=== PATIENT | female | born 1950 | race Caucasian/White ===

== ENCOUNTER 2021-10-24 12:58 | Inpatient (IN) ==
[2021-10-24] MEDS ORDERED: dexAMETHasone**PF** 10 MG/ML VIAL IV ONE (13:25)
--- NOTE | 2021-10-24 13:36 | Emergency Department Note ---
Impression & Plan 2019 novel coronavirus-infected pneumonia (NCIP), Hypoxia, Acute respiratory distress, Respiratory failure, Hyperglycemia ED Provider Note NAME: NERISSA WATKINS AGE: 71 SEX: F : 1950 ARRIVES VIA: Walk-In INFORMANT: Patient, ED PROVIDER(S): Jorge Luis Fuentes DO CHIEF COMPLAINT: Shortness of breath HPI: The patient is a 71-year-old female who presented to the emergency department for an evaluation of shortness of breath. The patient started having symptoms approximately 2 weeks ago. She is not currently vaccinated against COVID-19. The patient states that she has had difficulty breathing and cough. She states her symptoms started to improve but then over the last 4 days became very severe. She notices severe shortness of breath with any exertion. She denies having any specific orthopnea. She had a cough. She denies have any lower extremity swelling or fever. The patient is not seen her doctor for the symptoms. She presented to the emergency department with a friend after they noticed her breathing was very labored. The patient was taken directly back to room B1. The patient does have a history of asthma. She states she is been compliant with her usual medications otherwise. ROS: See above HPI for pertinent positives & negatives. A total of 10 systems re viewed and were otherwise negative. PAST MEDICAL HISTORY: See Below PAST SURGICAL HISTORY: See Below FAMILY HISTORY: See Below SOCIAL HISTORY: See Below HOME MEDICATIONS: See Below ALLERGIES: See Below VITALS: See Below PHYSICAL EXAMINATION: GENERAL: The patient is awake and alert. The patient is very anxious appearing and appears to be having distress with breathing. EYES: The conjunctivae are clear. The pupils are round and reactive. EARS, NOSE, MOUTH AND THROAT: The nose is without any evidence of any deformity. NECK: The neck is nontender and supple. RESPIRATORY: Diminished breath sounds are noted throughout. There is some rales noted in the right lung field. There was significant conversational dyspnea. CARDIOVASCULAR: Regular rate and rhythm noted there no murmurs rubs or gallops normal S1 normal S2. GASTROINTESTINAL: The abdomen is soft. Abdomen is nontender. MUSCULOSKELETAL/EXTREMITIES: There is no evidence of gross deformity full range of motion is noted in the hips and shoulders. SKIN: There is no obvious evidence of any rash. Trace pedal edema was noted bilaterally. There was no specific calf tenderness. NEUROLOGIC: Patient is awake alert and oriented x 3. MEDICAL DECISION MAKING: The patient is a 71-year-old female who presented to emergency department for an evaluation of difficulty breathing. The patient was unable to get the Covid vaccine. She started having symptoms several days ago but then started becoming much worse over the weekend. The patient presented to the emergency department with unstable vital signs. She was hypoxic. Lung sounds were severely diminished. She also has a history of asthma so she was treated with bronchodilator therapy in the emergency department. She was also placed on high flow oxygen. I discussed the patient's laboratory and radiographic studies with her. Because of the degree of hypoxia she also had a CT of the chest to ensure there is no signs of pulmonary embolism. This was negative. [facility] have agreed to evaluate the patient in the emergency department for further management and disposition. She was treated with Decadron. Symptoms significantly improved on reevaluation. Triage Nursing notes reviewed. Prior medical records reviewed Vital Signs: reviewed and remarkable for hypoxia, tachycardia, hypertension. Differential diagnosis: Reactive airway disease, pneumonia, pneumothorax, COPD, CHF, infections, cardiac ischemia, pulmonary embolism, musculoskeletal, gastrointestinal, as well as other pathologies. ER treatment provided: See below Diagnostics interpreted by me: ECG: EKG was obtained in the emergency department. My interpretation is sinus tachycardia 105 bpm. PVCs were noted. Right bundle branch block pattern was also appreciated. This was compared to a tracing from May 042019. The right bundle branch block is new compared to the earlier tracing. Cardiac Monitoring: An order was placed for continuous cardiac monitoring. The monitor shows a rate of 99 bpm with sinus rhythm. Laboratory studies: As stated above and show below. Imaging studies: See below Consultation(s): I discussed this case with Angela [facility] ED COURSE: Procedures: none PDMP:reviewed and no issues Critical Care: I have personally spent greater than 55 minutes of critical care time in the direct management of this patient. This includes bedside care, interpretation of diagnostic studies, and testing, discussion with consultants, patient, and family members, and other required patient management activities. This 55 minutes is in excess of all separately billable procedures. Past Med/Surg History Medical History Cellulitis Thrombocytopenia Surgical History History of incision and drainage History of laparoscopic cholecystectomy S/P tonsillectomy S/P total abdominal hysterectomy and bilateral salpingo-oophorectomy Family History Father No problems noted. Mother No problems noted. Social History Smoking Status: Never smoker Hx Alcohol Use: No Hx Substance Use: No Preferred Language: Citizen Of [place] Communication Ability: Effective Beliefs That Will Affect Care: None Current Living Situation: Alone Feels Safe at Home: Yes Seatbelt Use: always Assistive Devices: None Allergies Allergies Allergy/AdvReac Type Severity Reaction Status Date / Time erythromycin base Allergy Severe ANAPHYLAXIS Verified 08/16/21 08:53 metformin Allergy Severe GENERALIZED Verified 08/16/21 08:53 RASH AND ITCHING Penicillins Allergy Severe ANAPHYLAXIS, Verified 08/16/21 08:53 RASH cefaclor Allergy Intermediate RASH Verified 08/16/21 08:53 Quinolones Allergy Mild RASH Verified 08/16/21 08:53 clindamycin Allergy Unknown Verified 08/16/21 08:53 Influenza Virus Vaccines Allergy Unknown ` Verified 08/16/21 08:53 Sulfa (Sulfonamide Allergy Unknown ` Verified 08/16/21 08:53 Antibiotics) tetracycline Allergy Unknown Verified 08/16/21 08:53 Tetracyclines Allergy Unknown MINOCYCLINE Verified 08/16/21 08:53 /DOXY prednisone AdvReac Intermediate PSYCHOSIS Verified 08/16/21 08:53 vancomycin AdvReac Intermediate RED MAN Verified 08/16/21 08:53 SYNDROME - RASH, WBC DECREASED SULFA Allergy Severe SOB, Uncoded 08/16/21 08:53 DYSPNEA,THROAT SWELLING TETANUS Allergy Severe REDNESS, Uncoded 08/16/21 08:53 SWELLING AT INSERTION SITE Home Meds Home Medications Medication Instructions Recorded Confirmed loratadine 10 mg capsule 10 mg PO DAILY cap 06/12/19 08/16/21 multivitamin (Daily Multi-Vitamin) 1 tab PO DAILY 09/13/20 08/16/21 acetaminophen 500 mg tablet 500 mg PO Q6H PRN 12/27/20 08/16/21 (Tylenol Extra Strength) Previous Rx's Medication Instructions Recorded hydrochlorothiazide 25 mg tablet 25 mg PO DAILY #90 tab 01/10/21 losartan 100 mg tablet 100 mg PO DAILY #90 tab 01/10/21 spironolactone 25 mg tablet 25 mg PO DAILY #90 tab 01/10/21 Results & Data (ED) Vital Signs Vital Signs - 24 hr 10/24/21 13:17 10/24/21 13:23 10/24/21 13:30 Temperature 36.4 C L Temperature Source Oral Pulse Rate 113 H 101 H 107 H Pulse Rate [Right Finger] Pulse Rate from SpO2 Sensor 107 H Pulse Rhythm Regular Respiratory Rate 32 H 24 37 H Respiratory Effort / Characteristics Spontaneous Blood Pressure 112/52 L 169/86 H Blood Pressure Mean 72 113 Pulse Oximetry 61 L 86 L 92 Oxygen Delivery Method Room Air High Flow Nasal Cannula Oxygen Flow Rate 35 Fraction of Inspired Oxygen 55 Sepsis Recent Fever Within 48 Hours No Sepsis New/Unexplained Change in Mental Status No Sepsis Action Taken by Nursing Physician Notified 10/24/21 13:37 10/24/21 13:50 10/24/21 13:53 Temperature Temperature Source Pulse Rate Pulse Rate [Right Finger] 104 H Pulse Rate from SpO2 Sensor Pulse Rhythm Respiratory Rate 24 28 H Respiratory Effort / Characteristics Spontaneous Labored Blood Pressure Blood Pressure Mean Pulse Oximetry 93 93 89 L Oxygen Delivery Method High Flow Nasal Cannula High Flow Nasal Cannula High Flow Nasal Cannula Oxygen Flow Rate 35 35 35 Fraction of Inspired Oxygen 55 55 55 Sepsis Recent Fever Within 48 Hours Sepsis New/Unexplained Change in Mental Status Sepsis Action Taken by Nursing 10/24/21 14:00 10/24/21 14:05 10/24/21 14:15 Temperature Temperature Source Pulse Rate 99 H 98 H Pulse Rate [Right Finger] 101 H Pulse Rate from SpO2 Sensor 95 H Pulse Rhythm Respiratory Rate 26 H 22 26 H Respiratory Effort / Characteristics Spontaneous Labored Blood Pressure 145/83 H 171/100 H Blood Pressure Mean 103 123 Pulse Oximetry 89 L 94 96 Oxygen Delivery Method High Flow Nasal Cannula High Flow Nasal Cannula High Flow Nasal Cannula Oxygen Flow Rate 35 40 40 Fraction of Inspired Oxygen 55 65 65 Sepsis Recent Fever Within 48 Hours Sepsis New/Unexplained Change in Mental Status Sepsis Action Taken by Nursing 10/24/21 14:19 10/24/21 14:23 10/24/21 14:30 Temperature Temperature Source Pulse Rate 98 H 99 H Pulse Rate [Right Finger] Pulse Rate from SpO2 Sensor 99 H Pulse Rhythm Respiratory Rate 19 26 H 39 H Respiratory Effort / Characteristics Spontaneous Labored Blood Pressure 171/100 H 166/100 H Blood Pressure Mean 123 122 Pulse Oximetry 94 95 Oxygen Delivery Method High Flow Nasal Cannula High Flow Nasal Cannula Oxygen Flow Rate 40 40 Fraction of Inspired Oxygen 65 65 Sepsis Recent Fever Within 48 Hours Sepsis New/Unexplained Change in Mental Status Sepsis Action Taken by Nursing 10/24/21 14:45 10/24/21 15:00 10/24/21 15:15 Temperature Temperature Source Pulse Rate 95 H 99 H 99 H Pulse Rate [Right Finger] Pulse Rate from SpO2 Sensor 95 H 99 H 99 H Pulse Rhythm Respiratory Rate 20 28 H 28 H Respiratory Effort / Characteristics Blood Pressure 162/85 H 163/94 H 174/95 H Blood Pressure Mean 110 117 121 Pulse Oximetry 93 91 90 Oxygen Delivery Method High Flow Nasal Cannula High Flow Nasal Cannula Oxygen Flow Rate 40 40 Fraction of Inspired Oxygen Sepsis Recent Fever Within 48 Hours Sepsis New/Unexplained Change in Mental Status Sepsis Action Taken by Nursing 10/24/21 15:30 10/24/21 15:45 10/24/21 16:00 Temperature Temperature Source Pulse Rate 103 H 101 H Pulse Rate [Right Finger] Pulse Rate from SpO2 Sensor 104 H 101 H Pulse Rhythm Respiratory Rate 43 H 26 H Respiratory Effort / Characteristics Blood Pressure 190/86 H 187/92 H Blood Pressure Mean 120 123 Pulse Oximetry 90 Oxygen Delivery Method High Flow Nasal Cannula High Flow Nasal Cannula High Flow Nasal Cannula Oxygen Flow Rate 40 40 40 Fraction of Inspired Oxygen Sepsis Recent Fever Within 48 Hours Sepsis New/Unexplained Change in Mental Status Sepsis Action Taken by Nursing 10/24/21 16:01 10/24/21 16:15 10/24/21 16:30 Temperature Temperature Source Pulse Rate 99 H 99 H Pulse Rate [Right Finger] Pulse Rate from SpO2 Sensor 103 H 99 H 99 H Pulse Rhythm Respiratory Rate 34 H 25 H 23 Respiratory Effort / Characteristics Blood Pressure 174/91 H 179/91 H Blood Pressure Mean 118 120 Pulse Oximetry 92 96 Oxygen Delivery Method High Flow Nasal Cannula High Flow Nasal Cannula High Flow Nasal Cannula Oxygen Flow Rate 40 40 40 Fraction of Inspired Oxygen Sepsis Recent Fever Within 48 Hours Sepsis New/Unexplained Change in Mental Status Sepsis Action Taken by [facility] Medications Current Medication List: was personally reviewed by me Laboratory Data Attestation: I reviewed the patient's lab results. Result diagrams: 10/24/21 13:30 01/24/22 13:30 Lab Results 10/24/21 10/24/21 10/24/21 Range/Units 13:30 13:30 13:30 WBC 14.27 H (4.8-10.8) K/uL RBC 4.28 (4.2-5.4) M/uL Hgb 13.2 (12.0-16.0) g/dL Hct 40.3 (37-47) % MCV 94.2 (80-100) fL MCH 30.8 (25-34) pg MCHC 32.8 (32-36) g/dL RDW Std Deviation 47.5 H (36.4-46.3) fL RDW Coeff of Jessica 13.7 (11.5-14.5) % Plt Count 391 (130-400) K/uL MPV 9.2 (7.4-10.4) fL Immature Gran % (Auto) 0.6 % Neut % (Auto) 79.5 % Lymph % (Auto) 10.0 % [place] % (Auto) 8.9 % Eos % (Auto) 0.6 % Baso % (Auto) 0.4 % Neut # (Auto) 11.35 H (1.4-6.5) K/uL Lymph # (Auto) 1.42 (1.2-3.4) K/uL [place] # (Auto) 1.27 H (0.11-0.59) K/uL Eos # (Auto) 0.09 (0-0.5) K/uL Baso # (Auto) 0.06 (0-0.2) K/uL Immature Gran # (Auto) 0.08 H (0.00-0.02) K/uL ESR 69 H (0-30) mm/hr PT 10.2 (9.0-12.0) Seconds INR 1.0 (0.9-1.1) APTT 24.3 (21.0-31.0) Seconds PTT Ratio 0.9 Fibrinogen (184-400) mg/dl D-Dimer 1540 H* (0-500) ug/L FEU ABG pH (7.35-7.45) ABG pCO2 (35-46) mmHg ABG pO2 (80-95) mmHg ABG HCO3 (19-24) mmol/L ABG O2 Saturation (90-95) % ABG Base Excess (-9-1.8) mEq/L Herson Test (Pos) VBG pH (7.36-7.41) VBG pCO2 (38-50) mmHg VBG pO2 mmHg VBG HCO3 mmol/L VBG O2 Saturation % VBG Base Excess mEq/L Barometric Pressure mm/Hg Oxygen Given Sodium (136-145) mmol/L Potassium (3.5-5.1) mmol/L Chloride (98-107) mmol/L Carbon Dioxide (21-32) mmol/L Anion Gap (3-11) BUN (6-23) mg/dl Creatinine (0.6-1.2) mg/dl Est Cr Clr Drug Dosing ml/min Est GFR ( Amer) ml/min Est GFR (Non-Af Amer) ml/min BUN/Creatinine Ratio (10-20) Glucose (70-99(Fasting)) mg/dl Lactate (0.4-2.0) mmol/L Calcium (8.5-10.1) mg/dl Magnesium (1.7-2.4) mg/dl Total Bilirubin (0.2-1.0) mg/dl AST (13-39) U/L ALT (7-52) U/L Alkaline Phosphatase (34-104) U/L Troponin I (0-0.04) ng/ml C-Reactive Protein (0-0.5) mg/dl B-Natriuretic Peptide (0-100) pg/ml Total Protein (6.0-8.3) gm/dl Albumin (3.4-5.0) gm/dl Globulin (2.5-4.0) gm/dl Albumin/Globulin Ratio (0.9-2) Procalcitonin (0-0.5) ng/ml Adenovirus (PCR) (NotDetected) B. pertussis DNA (PCR) (NotDetected) B.parapertussis DNA PCR (NotDetected) C. pneumoniae DNA (PCR) (NotDetected) Coronavirus OC43 (PCR) (NotDetected) Coronavirus HKU1 (PCR) (NotDetected) Coronavirus 229E (PCR) (NotDetected) SARS-CoV-2 (PCR) (NotDetected) Coronavirus NL63 (PCR) (NotDetected) Human Metapneumovir PCR (NotDetected) Influenza Type A (PCR) (NotDetected) Influenza Type B (PCR) (NotDetected) M. pneumoniae (PCR) (NotDetected) Parainfluenza 1 (PCR) (NotDetected) Parainfluenza 2 (PCR) (NotDetected) Parainfluenza 3 (PCR) (NotDetected) Parainfluenza 4 (PCR) (NotDetected) RSV (PCR) (NotDetected) Entero/Rhino (PCR) (NotDetected) 10/24/21 10/24/21 10/24/21 Range/Units 13:30 13:30 13:45 WBC (4.8-10.8) K/uL RBC (4.2-5.4) M/uL Hgb (12.0-16.0) g/dL Hct (37-47) % MCV (80-100) fL MCH (25-34) pg MCHC (32-36) g/dL RDW Std Deviation (36.4-46.3) fL RDW Coeff of Jessica (11.5-14.5) % Plt Count (130-400) K/uL MPV (7.4-10.4) fL Immature Gran % (Auto) % Neut % (Auto) % Lymph % (Auto) % [place] % (Auto) % Eos % (Auto) % Baso % (Auto) % Neut # (Auto) (1.4-6.5) K/uL Lymph # (Auto) (1.2-3.4) K/uL [place] # (Auto) (0.11-0.59) K/uL Eos # (Auto) (0-0.5) K/uL Baso # (Auto) (0-0.2) K/uL Immature Gran # (Auto) (0.00-0.02) K/uL ESR (0-30) mm/hr PT (9.0-12.0) Seconds INR (0.9-1.1) APTT (21.0-31.0) Seconds PTT Ratio Fibrinogen (184-400) mg/dl D-Dimer (0-500) ug/L FEU ABG pH (7.35-7.45) ABG pCO2 (35-46) mmHg ABG pO2 (80-95) mmHg ABG HCO3 (19-24) mmol/L ABG O2 Saturation (90-95) % ABG Base Excess (-9-1.8) mEq/L Herson Test (Pos) VBG pH (7.36-7.41) VBG pCO2 (38-50) mmHg VBG pO2 mmHg VBG HCO3 mmol/L VBG O2 Saturation % VBG Base Excess mEq/L Barometric Pressure mm/Hg Oxygen Given Sodium 134 L (136-145) mmol/L Potassium 3.6 (3.5-5.1) mmol/L Chloride 94 L (98-107) mmol/L Carbon Dioxide 25 (21-32) mmol/L Anion Gap 15 H (3-11) BUN 26 H (6-23) mg/dl Creatinine 1.25 H (0.6-1.2) mg/dl Est Cr Clr Drug Dosing 48.2 ml/min Est GFR ( Amer) 49.4 ml/min Est GFR (Non-Af Amer) 42.6 ml/min BUN/Creatinine Ratio 20.8 H (10-20) Glucose 373 H* (70-99(Fasting)) mg/dl Lactate 2.9 H* (0.4-2.0) mmol/L Calcium 8.9 (8.5-10.1) mg/dl Magnesium 2.0 (1.7-2.4) mg/dl Total Bilirubin 0.7 (0.2-1.0) mg/dl AST 15 (13-39) U/L ALT 11 (7-52) U/L Alkaline Phosphatase 61 (34-104) U/L Troponin I 0.03 (0-0.04) ng/ml C-Reactive Protein 18.40 H (0-0.5) mg/dl B-Natriuretic Peptide (0-100) pg/ml Total Protein 7.5 (6.0-8.3) gm/dl Albumin 3.4 (3.4-5.0) gm/dl Globulin 4.1 H (2.5-4.0) gm/dl Albumin/Globulin Ratio 0.8 L (0.9-2) Procalcitonin 0.16 (0-0.5) ng/ml Adenovirus (PCR) (NotDetected) B. pertussis DNA (PCR) (NotDetected) B.parapertussis DNA PCR (NotDetected) C. pneumoniae DNA (PCR) (NotDetected) Coronavirus OC43 (PCR) (NotDetected) Coronavirus HKU1 (PCR) (NotDetected) Coronavirus 229E (PCR) (NotDetected) SARS-CoV-2 (PCR) (NotDetected) Coronavirus NL63 (PCR) (NotDetected) Human Metapneumovir PCR (NotDetected) Influenza Type A (PCR) (NotDetected) Influenza Type B (PCR) (NotDetected) M. pneumoniae (PCR) (NotDetected) Parainfluenza 1 (PCR) (NotDetected) Parainfluenza 2 (PCR) (NotDetected) Parainfluenza 3 (PCR) (NotDetected) Parainfluenza 4 (PCR) (NotDetected) RSV (PCR) (NotDetected) Entero/Rhino (PCR) (NotDetected) 10/24/21 10/24/21 10/24/21 Range/Units 13:46 14:02 14:02 WBC (4.8-10.8) K/uL RBC (4.2-5.4) M/uL Hgb (12.0-16.0) g/dL Hct (37-47) % MCV (80-100) fL MCH (25-34) pg MCHC (32-36) g/dL RDW Std Deviation (36.4-46.3) fL RDW Coeff of Jessica (11.5-14.5) % Plt Count (130-400) K/uL MPV (7.4-10.4) fL Immature Gran % (Auto) % Neut % (Auto) % Lymph % (Auto) % [place] % (Auto) % Eos % (Auto) % Baso % (Auto) % Neut # (Auto) (1.4-6.5) K/uL Lymph # (Auto) (1.2-3.4) K/uL [place] # (Auto) (0.11-0.59) K/uL Eos # (Auto) (0-0.5) K/uL Baso # (Auto) (0-0.2) K/uL Immature Gran # (Auto) (0.00-0.02) K/uL ESR (0-30) mm/hr PT (9.0-12.0) Seconds INR (0.9-1.1) APTT (21.0-31.0) Seconds PTT Ratio Fibrinogen (184-400) mg/dl D-Dimer (0-500) ug/L FEU ABG pH (7.35-7.45) ABG pCO2 (35-46) mmHg ABG pO2 (80-95) mmHg ABG HCO3 (19-24) mmol/L ABG O2 Saturation (90-95) % ABG Base Excess (-9-1.8) mEq/L Herson Test (Pos) VBG pH 7.41 (7.36-7.41) VBG pCO2 41 (38-50) mmHg VBG pO2 22 mmHg VBG HCO3 26 mmol/L VBG O2 Saturation < 60.0 % VBG Base Excess 1.0 mEq/L Barometric Pressure 725.8 mm/Hg Oxygen Given Sodium (136-145) mmol/L Potassium (3.5-5.1) mmol/L Chloride (98-107) mmol/L Carbon Dioxide (21-32) mmol/L Anion Gap (3-11) BUN (6-23) mg/dl Creatinine (0.6-1.2) mg/dl Est Cr Clr Drug Dosing ml/min Est GFR ( Amer) ml/min Est GFR (Non-Af Amer) ml/min BUN/Creatinine Ratio (10-20) Glucose (70-99(Fasting)) mg/dl Lactate (0.4-2.0) mmol/L Calcium (8.5-10.1) mg/dl Magnesium (1.7-2.4) mg/dl Total Bilirubin (0.2-1.0) mg/dl AST (13-39) U/L ALT (7-52) U/L Alkaline Phosphatase (34-104) U/L Troponin I (0-0.04) ng/ml C-Reactive Protein (0-0.5) mg/dl B-Natriuretic Peptide 84 (0-100) pg/ml Total Protein (6.0-8.3) gm/dl Albumin (3.4-5.0) gm/dl Globulin (2.5-4.0) gm/dl Albumin/Globulin Ratio (0.9-2) Procalcitonin (0-0.5) ng/ml Adenovirus (PCR) Not Detected (NotDetected) B. pertussis DNA (PCR) Not Detected (NotDetected) B.parapertussis DNA PCR Not Detected (NotDetected) C. pneumoniae DNA (PCR) Not Detected (NotDetected) Coronavirus OC43 (PCR) Not Detected (NotDetected) Coronavirus HKU1 (PCR) Not Detected (NotDetected) Coronavirus 229E (PCR) Not Detected (NotDetected) SARS-CoV-2 (PCR) DETECTED A* (NotDetected) Coronavirus NL63 (PCR) Not Detected (NotDetected) Human Metapneumovir PCR Not Detected (NotDetected) Influenza Type A (PCR) Not Detected (NotDetected) Influenza Type B (PCR) Not Detected (NotDetected) M. pneumoniae (PCR) Not Detected (NotDetected) Parainfluenza 1 (PCR) Not Detected (NotDetected) Parainfluenza 2 (PCR) Not Detected (NotDetected) Parainfluenza 3 (PCR) Not Detected (NotDetected) Parainfluenza 4 (PCR) Not Detected (NotDetected) RSV (PCR) Not Detected (NotDetected) Entero/Rhino (PCR) Not Detected (NotDetected) 10/24/21 10/24/21 10/24/21 Range/Units 15:31 15:31 15:34 WBC (4.8-10.8) K/uL RBC (4.2-5.4) M/uL Hgb (12.0-16.0) g/dL Hct (37-47) % MCV (80-100) fL MCH (25-34) pg MCHC (32-36) g/dL RDW Std Deviation (36.4-46.3) fL RDW Coeff of Jessica (11.5-14.5) % Plt Count (130-400) K/uL MPV (7.4-10.4) fL Immature Gran % (Auto) % Neut % (Auto) % Lymph % (Auto) % [place] % (Auto) % Eos % (Auto) % Baso % (Auto) % Neut # (Auto) (1.4-6.5) K/uL Lymph # (Auto) (1.2-3.4) K/uL [place] # (Auto) (0.11-0.59) K/uL Eos # (Auto) (0-0.5) K/uL Baso # (Auto) (0-0.2) K/uL Immature Gran # (Auto) (0.00-0.02) K/uL ESR (0-30) mm/hr PT (9.0-12.0) Seconds INR (0.9-1.1) APTT (21.0-31.0) Seconds PTT Ratio Fibrinogen 635 H (184-400) mg/dl D-Dimer (0-500) ug/L FEU ABG pH 7.47 H (7.35-7.45) ABG pCO2 38 (35-46) mmHg ABG pO2 56 L (80-95) mmHg ABG HCO3 27 H (19-24) mmol/L ABG O2 Saturation 90.9 (90-95) % ABG Base Excess 3.0 H (-9-1.8) mEq/L Herson Test POS (Pos) VBG pH (7.36-7.41) VBG pCO2 (38-50) mmHg VBG pO2 mmHg VBG HCO3 mmol/L VBG O2 Saturation % VBG Base Excess mEq/L Barometric Pressure 725.2 mm/Hg Oxygen Given 40% FiO2 Sodium (136-145) mmol/L Potassium (3.5-5.1) mmol/L Chloride (98-107) mmol/L Carbon Dioxide (21-32) mmol/L Anion Gap (3-11) BUN (6-23) mg/dl Creatinine (0.6-1.2) mg/dl Est Cr Clr Drug Dosing ml/min Est GFR ( Amer) ml/min Est GFR (Non-Af Amer) ml/min BUN/Creatinine Ratio (10-20) Glucose (70-99(Fasting)) mg/dl Lactate 0.8 (0.4-2.0) mmol/L Calcium (8.5-10.1) mg/dl Magnesium (1.7-2.4) mg/dl Total Bilirubin (0.2-1.0) mg/dl AST (13-39) U/L ALT (7-52) U/L Alkaline Phosphatase (34-104) U/L Troponin I (0-0.04) ng/ml C-Reactive Protein (0-0.5) mg/dl B-Natriuretic Peptide (0-100) pg/ml Total Protein (6.0-8.3) gm/dl Albumin (3.4-5.0) gm/dl Globulin (2.5-4.0) gm/dl Albumin/Globulin Ratio (0.9-2) Procalcitonin (0-0.5) ng/ml Adenovirus (PCR) (NotDetected) B. pertussis DNA (PCR) (NotDetected) B.parapertussis DNA PCR (NotDetected) C. pneumoniae DNA (PCR) (NotDetected) Coronavirus OC43 (PCR) (NotDetected) Coronavirus HKU1 (PCR) (NotDetected) Coronavirus 229E (PCR) (NotDetected) SARS-CoV-2 (PCR) (NotDetected) Coronavirus NL63 (PCR) (NotDetected) Human Metapneumovir PCR (NotDetected) Influenza Type A (PCR) (NotDetected) Influenza Type B (PCR) (NotDetected) M. pneumoniae (PCR) (NotDetected) Parainfluenza 1 (PCR) (NotDetected) Parainfluenza 2 (PCR) (NotDetected) Parainfluenza 3 (PCR) (NotDetected) Parainfluenza 4 (PCR) (NotDetected) RSV (PCR) (NotDetected) Entero/Rhino (PCR) (NotDetected) Administered Medications Discontinued Medications Albuterol (Albut/Ipratrop 3mg/0.5mg Neb 3 Ml Vial) 12 ml NEB ONE ONE; Protocol Stop: 10/24/21 13:49 Last Admin: 10/24/21 14:04 Dose: 12 ml Documented by: [id number] Dexamethasone Sodium Phosphate (DexamethasonePf 10 Mg/Ml Vial) 10 mg IV NOW ONE Stop: 10/24/21 13:26 Last Admin: 10/24/21 13:40 Dose: 10 mg Documented by: [id number] Ioversol (Optiray 320 125ml) 120 ml IV ONCE ONE Stop: 10/24/21 15:54 Last Admin: 10/24/21 15:54 Dose: 120 ml Documented by: [id number] Imaging Data Radiologist's Impression: Chest CTA 10/24/21 14:23 CT angio chest PE protocol CLINICAL HISTORY: PE TECHNIQUE: Multidetector row helical CT of the chest was performed. Coronal and sagittal reformations were obtained. Coronal and sagittal MIPS were obtained from the axial data set and were submitted for review. Automated dose lowering techniques and/or adjustment according to patient size were utilized for this exam. Comparison: Comparison is made to CT chest 03/22/2016 FINDINGS: Lungs and pleura: Extensive consolidative and reticular opacities are seen compatible with history of Covid pneumonia. Heart and pericardium: There is cardiomegaly without evidence of pericardial effusion. Vessels: No evidence of pulmonary embolism. The pulmonary trunk measures 33 mm. Mediastinum and enrique: Subcentimeter lymph nodes are seen. Chest wall and lower neck: A large lobulated lesion is again seen in the upper midline back with low-attenuation some calcifications. This could represent a sebaceous cyst, and is almost certainly benign due to lack of growth. Abdomen: Patient is status post cholecystectomy. Bones: Degenerative changes in the thoracic spine. IMPRESSION: 1. No evidence of pulmonary embolism. 2. Extensive consolidative and reticular opacities compatible with Covid pneumonia. 3. Pulmonary hypertension. 4. Benign lesion in the soft tissues of the back may represent a sebaceous cyst. ACT 112: Negative or not required by law. Electronically signed by: Cristi Mcdonald M.D. 10/24/2021 4:18 PM Discharge Plan Visit Data Chief Complaint: Shortness of Breath/Dyspnea Stated Complaint: SOB ED Provider: Jorge Luis Fuentes Discharge Problem: 2019 novel coronavirus-infected pneumonia (NCIP), Hypoxia, Acute respiratory distress, Respiratory failure, Hyperglycemia Patient Disposition: Being Evaluated by Hospitalist Forms Stand Alone Forms: My [facility] Behalf Prescriptions Prescriptions: No Action loratadine 10 mg capsule 10 mg PO DAILY RF: 0 hydrochlorothiazide 25 mg tablet 25 mg PO DAILY Qty: 90 RF: 3 losartan 100 mg tablet 100 mg PO DAILY Qty: 90 RF: 3 spironolactone 25 mg tablet 25 mg PO DAILY Qty: 90 RF: 3 acetaminophen [Tylenol Extra Strength] 500 mg tablet 500 mg PO Q6H PRNRF: 0 multivitamin [Daily Multi-Vitamin] Tablet 1 tab PO DAILY RF: 0 Referrals Referrals: Raciel Garsia MD [Primary Care Provider] -
[2021-10-24 13:41] LABS: Hematocrit (blood only) 40.3 % (37-47); Hemoglobin 13.2 g/dL (12.0-16.0); Mean Corpuscular Hemoglobin 30.8 pg (25-34); Mean Corpuscular Hgb Conc 32.8 g/dL (32-36); Mean Corpuscular Volume 94.2 fL (80-100); Mean Platelet Volume 9.2 fL (7.4-10.4); Platelet Count 391 K/uL (130-400); RDW Coefficient of Variation 13.7 % (11.5-14.5); RDW Standard Deviation 47.5 fL (36.4-46.3); Red Blood Count 4.28 M/uL (4.2-5.4); White Blood Count 14.27 K/uL (4.8-10.8)
[2021-10-24] MEDS ORDERED: ALBUT/IPRATROP 3MG/0.5MG NEB 3 ML VIAL NEB ONE (13:48)
[2021-10-24 13:53] LABS: Partial Thromboplastin Ratio 0.9; Partial Thromboplastin Time 24.3 Seconds (21.0-31.0); Prothrombin Time 10.2 Seconds (9.0-12.0)
[2021-10-24 13:58] LABS: D Dimer 1540 ug/L FEU (0-500)
[2021-10-24 14:15] LABS: HCO3 VBG 26 mmol/L; PCO2 VBG 41 mmHg (38-50); PO2 VBG 22 mmHg; pH VBG 7.41 (7.36-7.41)
[2021-10-24 14:16] LABS: Troponin I 0.03 ng/ml (0-0.04)
[2021-10-24 14:20] LABS: Oxygen Saturation VBG < 60.0 %
[2021-10-24 14:33] LABS: Basophils # (auto) 0.06 K/uL (0-0.2); Basophils % (auto) 0.4 %; Eosinophils # (auto) 0.09 K/uL (0-0.5); Eosinophils % (auto) 0.6 %; Immature Granulocytes # (auto) 0.08 K/uL (0.00-0.02); Immature Granulocytes % (auto) 0.6 %; Lymphocytes # (auto) 1.42 K/uL (1.2-3.4); Monocytes # (auto) 1.27 K/uL (0.11-0.59); Monocytes % (auto) 8.9 %; Neutrophils # (auto) 11.35 K/uL (1.4-6.5); Neutrophils % (auto) 79.5 %
[2021-10-24 14:44] LABS: Albumin Globulin Ratio 0.8 (0.9-2); Albumin Level 3.4 gm/dl (3.4-5.0); BUN Creatinine Ratio 20.8 (10-20); Bilirubin,Total 0.7 mg/dl (0.2-1.0); C Reactive Protein 18.4 mg/dl (0-0.5); Calcium 8.9 mg/dl (8.5-10.1); Creatinine Clr Calc Pharmacy 48.2 ml/min; Est GFR (African American) 49.4 ml/min; Est GFR (Non-African American) 42.6 ml/min; Globulin 4.1 gm/dl (2.5-4.0); Potassium 3.6 mmol/L (3.5-5.1); Total Protein 7.5 gm/dl (6.0-8.3)
[2021-10-24 14:46] LABS: Adenovirus PCR Not Detected (NotDetected); Bordetella parapertussis PCR Not Detected (NotDetected); Bordetella pertussis PCR Not Detected (NotDetected); Chlamydia pneumoniae PCR Not Detected (NotDetected); Coronavirus 229E PCR Not Detected (NotDetected); Coronavirus HKU1 PCR Not Detected (NotDetected); Coronavirus NL63 PCR Not Detected (NotDetected); Coronavirus OC43PCR Not Detected (NotDetected); Human Metapneumovirus PCR Not Detected (NotDetected); Influenza A PCR Not Detected (NotDetected); Influenza B PCR Not Detected (NotDetected); Mycoplasma pneumoniae PCR Not Detected (NotDetected); Parainfluenza Virus 1 PCR Not Detected (NotDetected); Parainfluenza Virus 2 PCR Not Detected (NotDetected); Parainfluenza Virus 3 PCR Not Detected (NotDetected); Parainfluenza Virus 4 PCR Not Detected (NotDetected); Respiratory Syncytial VirusPCR Not Detected (NotDetected); Rhinovirus/Enterovirus PCR Not Detected (NotDetected)
[2021-10-24 14:49] LABS: Coronavirus CoV-2 (COVID19)PCR DETECTED (NotDetected)
--- NOTE | 2021-10-24 15:45 | History & Physical Report ---
Date of Service October 24, 2021 Assessment & Plan (1) COVID-19: Plan: -Day #10 of illness, not vaccinated as she was reportedly advised not to be due to developing meningitis several years ago following influenza vaccine. -ESR 69, CRP 18.4, WBC 14.2, BUN 26, Cr 1.25, fibrinogen 635 -Received Decadron 10mg IV in ED, will continue this dose during hospitalization beginning tomorrow -Albuterol inhaler Q6 with flutter valve ordered. -Baricitinib ordered. -Sputum culture pending. -Empiric coverage with cefepime. Patient has several antibiotic allergies. After discussion with pharmacy, a decision was made to trial patient on cefepime and monitor her clinical response, with the ability to escalate or de-escalate abx coverage depending on her response and tolerance. -BMP and CBC in AM. (2) Hypoxia: Plan: -D-dimer elevated at 1540 however chest CTA was negative for pulmonary embolism. -Likely 2/2 COVID-19 pneumonia with possible bacterial pneumonia. -Patient is on 40 L/min hi-flow at 65% FiO2 -Plan as above. (3) KEESHA (acute kidney injury): Plan: -BUN 26, Cr 1.25. -Likely the result of poor po intake due to recent illness in combination with HCTZ and losartan. -Hold BP meds for today. -LR at 80cc/hr for 1L started. -BMP in AM. (4) Hyperglycemia: Plan: -BBS is 373 in ED today. Patient denies a formal DM diagnosis however sugars appear to be chronically elevated in 200s on previous labs. No A1c for reference. -Received 5 units of Novolin in the ED. -Sliding scale insulin ordered with BGM checks ACHS. -Glycemic management consult to pharmacy placed. -HbA1c ordered with AM labs tomorrow. (5) Paroxysmal supraventricular tachycardia: Plan: -h/o Wide Complex Tachycardia (only 1 brief and asymptomatic episode on 05/24/2019 and lasted 5 seconds at a rate of 180 bpm) -Patient has a loop recorder implanted. (6) HTN (hypertension): Plan: -Hold HCTZ and Losartan today due to KEESHA. (7) DVT prophylaxis: Plan: -SCDs ordered. -Lovenox 40 mg SQ Q12. History of Present Illness Chief Complaint: shortness of breath Primary Care Provider: Raciel Garsia MD Patient is a 69 y/o female with a PMH of HTN and SVT who presents today with increasing SOB. Pt began experiencing nasal congestion, productive cough, rhinorrhea, low grade fever, and fatigue about 10 days ago. She called her PCP who advised her to isolate and use OTC medications to manage her symptoms at the time. Patient improved over the next several days with Tylenol, however began to decline again over the past 4 days with the above symptoms as well as increasing SOB and fatigue. 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 She denies sick contacts. She had not been tested for COVID-19, but test in ED today is positive. Patient came into the ED with initial SaO2 at 61% on RA but improved to mid 90s on 65% FIO2. She received 10 gm IV Decadron as well as DuoNeb treatment, as well as 5 units of Novolin as her sugar was 373. Hospitalist team was consulted for admission. Allergies Allergy/AdvReac Type Severity Reaction Status Date / Time erythromycin base Allergy Severe ANAPHYLAXIS Verified 10/24/21 17:56 metformin Allergy Severe GENERALIZED Verified 10/24/21 17:56 RASH AND ITCHING Penicillins Allergy Severe ANAPHYLAXIS, Verified 10/24/21 17:56 RASH cefaclor Allergy Intermediate RASH Verified 10/24/21 17:56 Quinolones Allergy Mild RASH Verified 10/24/21 17:56 clindamycin Allergy Unknown Verified 10/24/21 17:56 Influenza Virus Vaccines Allergy Unknown ` Verified 10/24/21 17:56 Sulfa (Sulfonamide Allergy Unknown ` Verified 10/24/21 17:56 Antibiotics) tetracycline Allergy Unknown Verified 10/24/21 17:56 Tetracyclines Allergy Unknown MINOCYCLINE Verified 10/24/21 17:56 /DOXY prednisone AdvReac Intermediate PSYCHOSIS Verified 10/24/21 17:56 vancomycin AdvReac Intermediate RED MAN Verified 10/24/21 17:56 SYNDROME - RASH, WBC DECREASED SULFA Allergy Severe SOB, Uncoded 10/24/21 17:56 DYSPNEA,THROAT SWELLING TETANUS Allergy Severe REDNESS, Uncoded 10/24/21 17:56 SWELLING AT INSERTION SITE Home Medications Medication Instructions Recorded Confirmed Type loratadine 10 mg capsule 10 mg PO DAILY cap 06/12/19 10/24/21 History multivitamin (Daily Multi-Vitamin) 1 tab PO DAILY 09/13/20 10/24/21 History acetaminophen 500 mg tablet 500 mg PO Q6H PRN 12/27/20 10/24/21 History (Tylenol Extra Strength) hydrochlorothiazide 25 mg tablet 25 mg PO DAILY #90 tab 01/10/21 10/24/21 Rx losartan 100 mg tablet 100 mg PO DAILY #90 tab 01/10/21 10/24/21 Rx spironolactone 25 mg tablet 25 mg PO DAILY #90 tab 01/10/21 10/24/21 Rx Past Med/Surg History Medical History Cellulitis Thrombocytopenia Surgical History History of incision and drainage History of laparoscopic cholecystectomy S/P tonsillectomy S/P total abdominal hysterectomy and bilateral salpingo-oophorectomy Family History Father No problems noted. Mother No problems noted. Social History Smoking Status: Never smoker Hx Alcohol Use: No Hx Substance Use: No Preferred Language: Brazilian Communication Ability: Effective Beliefs That Will Affect Care: None Current Living Situation: Alone Feels Safe at Home: Yes Seatbelt Use: always Assistive Devices: None Review of Systems Review of Systems: Review of systems: Constitutional: Reports fever/chills and fatigue; denies night sweats Eyes: No diplopia, no worsening or blurred vision ENT: normal hearing, no trouble swallowing Respiratory: Reports cough productive for yellow sputum and SOB at rest and exertion Cardiovascular: No chest pain, tightness or palpitations Abdomen: No pain, nausea, vomiting, diarrhea or constipation Musculoskeletal: No joint pain, calf pain, swelling Genitourinary: No dysuria, urgency, hematuria, flank pain Neurologic: No weakness, numbness/tingling, or balance problems Psychiatric: No anxiety or depression Skin: No rash or itch Physical Exam Physical Exam: General: Pt is A+O x4, in no acute distress, conversation with 40L FiO2 in place Head: Normocephalic, atraumatic ENT: PERRL, EOMI, no pharyngeal exudate, mucous membranes moist Chest: b/l crackles heard throughout anterior lung govea Cardiac: Tachycardic, regular rhythm no murmur, no JVD, normal peripheral pulses, good capillary refill Abdominal: NABS x 4 quadrants, soft, nontender to palpation, no rebound, guarding or tenderness Extremities: Normal inspection, no peripheral edema or erythema, calfs nontender to palpation Psych: Normal mood and affect Neuro: AAO x 3, strength intact bilaterally and rated 5/5, no motor deficits, speech is clear, no peripheral sensory deficits Skin: no rash or erythema Results & Data Results & Data ([facility]) Vital Signs (Past 12 Hours) Vital Signs Temp Pulse Pulse Resp BP Pulse Ox 10/24/21 14:45 95 H 20 162/85 H 93 10/24/21 14:30 99 H 39 H 166/100 H 95 10/24/21 14:23 26 H 94 10/24/21 14:19 98 H 19 171/100 H 10/24/21 14:15 98 H 26 H 171/100 H 96 10/24/21 14:05 101 H 22 94 10/24/21 14:00 99 H 26 H 145/83 H 89 L 10/24/21 13:53 28 H 89 L 10/24/21 13:50 93 10/24/21 13:37 104 H 24 93 10/24/21 13:30 107 H 37 H 169/86 H 92 10/24/21 13:23 101 H 24 86 L 10/24/21 13:17 36.4 C L 113 H 32 H 112/52 L 61 L Laboratory Results Abnormal lab results 10/24/21 10/24/21 10/24/21 Range/Units 13:30 13:30 13:30 WBC 14.27 H (4.8-10.8) K/uL RDW Std Deviation 47.5 H (36.4-46.3) fL Neut # (Auto) 11.35 H (1.4-6.5) K/uL Robeson # (Auto) 1.27 H (0.11-0.59) K/uL Immature Gran # (Auto) 0.08 H (0.00-0.02) K/uL ESR 69 H (0-30) mm/hr Fibrinogen (184-400) mg/dl D-Dimer 1540 H* (0-500) ug/L FEU ABG pH (7.35-7.45) ABG pO2 (80-95) mmHg ABG HCO3 (19-24) mmol/L ABG Base Excess (-9-1.8) mEq/L Sodium (136-145) mmol/L Chloride (98-107) mmol/L Anion Gap (3-11) BUN (6-23) mg/dl Creatinine (0.6-1.2) mg/dl BUN/Creatinine Ratio (10-20) Glucose (70-99(Fasting)) mg/dl Lactate (0.4-2.0) mmol/L C-Reactive Protein (0-0.5) mg/dl Globulin (2.5-4.0) gm/dl Albumin/Globulin Ratio (0.9-2) SARS-CoV-2 (PCR) (NotDetected) 10/24/21 10/24/21 10/24/21 Range/Units 13:30 13:45 13:46 WBC (4.8-10.8) K/uL RDW Std Deviation (36.4-46.3) fL Neut # (Auto) (1.4-6.5) K/uL Robeson # (Auto) (0.11-0.59) K/uL Immature Gran # (Auto) (0.00-0.02) K/uL ESR (0-30) mm/hr Fibrinogen (184-400) mg/dl D-Dimer (0-500) ug/L FEU ABG pH (7.35-7.45) ABG pO2 (80-95) mmHg ABG HCO3 (19-24) mmol/L ABG Base Excess (-9-1.8) mEq/L Sodium 134 L (136-145) mmol/L Chloride 94 L (98-107) mmol/L Anion Gap 15 H (3-11) BUN 26 H (6-23) mg/dl Creatinine 1.25 H (0.6-1.2) mg/dl BUN/Creatinine Ratio 20.8 H (10-20) Glucose 373 H* (70-99(Fasting)) mg/dl Lactate 2.9 H* (0.4-2.0) mmol/L C-Reactive Protein 18.40 H (0-0.5) mg/dl Globulin 4.1 H (2.5-4.0) gm/dl Albumin/Globulin Ratio 0.8 L (0.9-2) SARS-CoV-2 (PCR) DETECTED A* (NotDetected) 10/24/21 10/24/21 Range/Units 15:31 15:31 WBC (4.8-10.8) K/uL RDW Std Deviation (36.4-46.3) fL Neut # (Auto) (1.4-6.5) K/uL Robeson # (Auto) (0.11-0.59) K/uL Immature Gran # (Auto) (0.00-0.02) K/uL ESR (0-30) mm/hr Fibrinogen 635 H (184-400) mg/dl D-Dimer (0-500) ug/L FEU ABG pH 7.47 H (7.35-7.45) ABG pO2 56 L (80-95) mmHg ABG HCO3 27 H (19-24) mmol/L ABG Base Excess 3.0 H (-9-1.8) mEq/L Sodium (136-145) mmol/L Chloride (98-107) mmol/L Anion Gap (3-11) BUN (6-23) mg/dl Creatinine (0.6-1.2) mg/dl BUN/Creatinine Ratio (10-20) Glucose (70-99(Fasting)) mg/dl Lactate (0.4-2.0) mmol/L C-Reactive Protein (0-0.5) mg/dl Globulin (2.5-4.0) gm/dl Albumin/Globulin Ratio (0.9-2) SARS-CoV-2 (PCR) (NotDetected) Diagnostic Findings Chest CTA 10/24/21 14:23 CT angio chest PE protocol CLINICAL HISTORY: PE TECHNIQUE: Multidetector row helical CT of the chest was performed. Coronal and sagittal reformations were obtained. Coronal and sagittal MIPS were obtained from the axial data set and were submitted for review. Automated dose lowering techniques and/or adjustment according to patient size were utilized for this exam. Comparison: Comparison is made to CT chest 03/22/2016 FINDINGS: Lungs and pleura: Extensive consolidative and reticular opacities are seen compatible with history of Covid pneumonia. Heart and pericardium: There is cardiomegaly without evidence of pericardial effusion. Vessels: No evidence of pulmonary embolism. The pulmonary trunk measures 33 mm. Mediastinum and enrique: Subcentimeter lymph nodes are seen. Chest wall and lower neck: A large lobulated lesion is again seen in the upper midline back with low-attenuation some calcifications. This could represent a sebaceous cyst, and is almost certainly benign due to lack of growth. Abdomen: Patient is status post cholecystectomy. Bones: Degenerative changes in the thoracic spine. IMPRESSION: 1. No evidence of pulmonary embolism. 2. Extensive consolidative and reticular opacities compatible with Covid pneumonia. 3. Pulmonary hypertension. 4. Benign lesion in the soft tissues of the back may represent a sebaceous cyst. ACT 112: Negative or not required by law. Electronically signed by: Cristi Mcdonald M.D. 10/24/2021 4:18 PM Supervising Physician Co-Signing Physician Notes I supervised Angela Lowe PA-C on the care of this patient. I interviewed and examined the patient independently of her. The plan is as written in her note except for any following changes/exceptions: None 71yo F w/ hx of HTN who presents with Covid-19 pneumonia. Patient sick for approx. 10 days with acute worsening in the last 3-4. SpO2 reported as low as 60% range on arrival and now requiring high-flow NC. Per PA note, start dexamethasone, baricitinib. Close monitor. She has an extremely high risk of decompensation and need for intubation given her arrival condition. Will treat for superimposed CAP. Unable to treat for atypicals given her allergy to azithro mycin, FLQs, and doxycycline. I did go over all these abx with her, and she reported significant reactions to all. Will trend WBC and procalcitonin. PG Care Time/CCT Total # of Minutes Spent Total Time Spent with Patient: Total time spent is greater than 50% in coordination of care (as documented) at patient's floor/unit and/or counseling patient: Coding Level of Care Code 34349 Initial Inpt Care Lvl 3 Diagnoses HTN (hypertension) I10 Hypertension type: essential hypertension Paroxysmal supraventricular tachycardia I47.1 Hyperglycemia R73.9 COVID-19 U07.1 Hypoxia R09.02 KEESHA (acute kidney injury) N17.9 DVT prophylaxis Z29.9 (1) HTN (hypertension) Hypertension type: essential hypertension Qualified Code(s): I10 - Essential (primary) hypertension
[2021-10-24 15:48] LABS: Allen Test POS (Pos); HCO3 ABG 27 mmol/L (19-24); Oxygen Saturation ABG 90.9 % (90-95); PCO2 ABG 38 mmHg (35-46); PO2 ABG 56 mmHg (80-95); pH ABG 7.47 (7.35-7.45)
[2021-10-24] MEDS ORDERED: OPTIRAY 320 125ml IV ONE (15:53)
[2021-10-24 15:54] LABS: Fibrinogen 635 mg/dl (184-400)
--- NOTE | 2021-10-24 16:06 | Electrocardiogram Report ---
Test Reason : Blood Pressure : / mmHG Vent. Rate : 105 BPM Atrial Rate : 105 BPM P-R Int : 146 ms QRS Dur : 152 ms QT Int : 386 ms P-R-T Axes : 025 -22 -01 degrees QTc Int : 510 ms Poor data quality, interpretation may be adversely affected Sinus tachycardia with Premature ventricular complexes Right bundle branch block Abnormal ECG When compared with ECG of 04-MAY-2020 16:31, PVCs are now present Right bundle branch block is now Present Confirmed by Raciel Jordan ([id number]) on 10/24/2021 4:06:14 PM Referred By: REFERRED SELF Confirmed By:Sergio Jordan
--- NOTE | 2021-10-24 16:19 | CT Scan Report ---
CT angio chest PE protocol CLINICAL HISTORY: PE TECHNIQUE: Multidetector row helical CT of the chest was performed. Coronal and sagittal reformations were obtained. Coronal and sagittal MIPS were obtained from the axial data set and were submitted fo r review. Automated dose lowering techniques and/or adjustment according to patient size were utiliz ed for this exam. Comparison: Comparison is made to CT chest 03/22/2016 FINDINGS: Lungs and pleura: Extensive consolidative and reticular opacities are seen compatible with history of Covid pneumonia. Heart and pericardium: There is cardiomegaly without evidence of pericardial effusion. Vessels: No evidence of pulmonary embolism. The pulmonary trunk measures 33 mm. Mediastinum and enrique: Subcentimeter lymph nodes are seen. Chest wall and lower neck: A large lobulated lesion is again seen in the upper midline back with low- attenuation some calcifications. This could represent a sebaceous cyst, and is almost certainly benig n due to lack of growth. Abdomen: Patient is status post cholecystectomy. Bones: Degenerative changes in the thoracic spine. IMPRESSION: 1. No evidence of pulmonary embolism. 2. Extensive consolidative and reticular opacities compatible with Covid pneumonia. 3. Pulmonary hypertension. 4. Benign lesion in the soft tissues of the back may represent a sebaceous cyst. ACT 112: Negative or not required by law. Electronically signed by: Cristi Mcdonald M.D. 10/24/2021 4:18 PM
[2021-10-24] MEDS ORDERED: LACTATED RINGER'S 1,000 ML IV ONE (16:48)
[2021-10-24] MEDS ORDERED: ALBUTEROL 0.083% NEBU SOLN 3 ML VIAL NEB PRN (16:54)
[2021-10-24] MEDS ORDERED: SODIUM CHLORIDE 0.9% 1000ML 500 ML IV ONE (16:55)
[2021-10-24] MEDS ORDERED: NovoLIN-R INSULIN PER UNIT CHARGE IV STA (16:55)
[2021-10-24] MEDS ORDERED: BARICITINIB COMMUNICATION ONE (17:15)
[2021-10-24] MEDS ORDERED: GLUCAGON FOR INJ 1 MG VIAL SQ PRN (19:35)
[2021-10-24] MEDS ORDERED: CARBOHYDRATES FOR HYPOGLYCEMIA PO PRN (19:35)
[2021-10-24] MEDS ORDERED: DEXTROSE 50% 50 ML SYRINGE IV PRN (19:35)
[2021-10-24] MEDS ORDERED: GLUCOSE 10 TABS/TUBE PO PRN (19:35)
[2021-10-24] MEDS ORDERED: GLUCOSE 40% GEL 15 GM TUBE PO PRN (19:35)
[2021-10-24] MEDS ORDERED: POLYETHYLENE (MIRALAX) 17 GM PACK PO PRN (19:35)
[2021-10-24] MEDS ORDERED: ONDANSETRON INJ 2 MG/ML 2 ML VIAL IV PRN (19:35)
[2021-10-24] MEDS ORDERED: PHARMACY GLYCEMIC MGMT CONSULT PRN (19:35)
[2021-10-24] MEDS ORDERED: BARICITINIB 2 MG TAB PO SCH (21:00)
[2021-10-24] MEDS ORDERED: INSULIN GLARGINE SOLOSTAR 100 UNITS/ML 3 ML PEN SC ONE (21:15)
[2021-10-24] MEDS: INSULIN ASPART PER UNIT SC SCH (21:52)
[2021-10-24] MEDS: ENOXAPARIN INJ 40 MG/0.4 ML SYR SQ SCH (22:22)
[2021-10-24] MEDS: CEFEPIME 2,000 MG in SYRINGE 0 ML IV SCH (23:43)
[2021-10-25] MEDS: INSULIN ASPART PER UNIT SC SCH ×6 (00:10→21:30)
[2021-10-25 07:08] LABS: Basophils # (auto) 0.02 K/uL (0-0.2); Basophils % (auto) 0.3 %; Hematocrit (blood only) 34.8 % (37-47); Hemoglobin 11.4 g/dL (12.0-16.0); Immature Granulocytes # (auto) 0.04 K/uL (0.00-0.02); Immature Granulocytes % (auto) 0.5 %; Lymphocytes # (auto) 1.25 K/uL (1.2-3.4); Lymphocytes % (auto) 16.3 %; Mean Corpuscular Hemoglobin 30.7 pg (25-34); Mean Corpuscular Hgb Conc 32.8 g/dL (32-36); Mean Corpuscular Volume 93.8 fL (80-100); Monocytes # (auto) 1.07 K/uL (0.11-0.59); Monocytes % (auto) 13.9 %; Platelet Count 353 K/uL (130-400); RDW Coefficient of Variation 13.5 % (11.5-14.5); RDW Standard Deviation 46.6 fL (36.4-46.3); Red Blood Count 3.71 M/uL (4.2-5.4); White Blood Count 7.68 K/uL (4.8-10.8)
[2021-10-25 07:51] LABS: BUN Creatinine Ratio 29.2 (10-20); Calcium 8.6 mg/dl (8.5-10.1); Creatinine Clr Calc Pharmacy 67.7 ml/min; Est GFR (African American) 74.5 ml/min; Est GFR (Non-African American) 64.3 ml/min; Potassium 4.1 mmol/L (3.5-5.1)
[2021-10-25 08:16] LABS: Estimated Average Glucose 272 mg/dl; Hemoglobin A1C 11.1 % (4.5-5.6)
[2021-10-25] MEDS: dexAMETHasone 6 MG in SYRINGE 0 ML IV SCH (08:56)
[2021-10-25] MEDS: CEFEPIME 2,000 MG in SYRINGE 0 ML IV SCH ×2 (08:56→18:07)
[2021-10-25] MEDS: ENOXAPARIN INJ 40 MG/0.4 ML SYR SQ SCH ×2 (08:57→20:48)
[2021-10-25] MEDS ORDERED: dexAMETHasone 10 MG in SYRINGE 0 ML IV SCH (09:00)
[2021-10-25] MEDS ORDERED: INSULIN HUMAN NPH SC ONE (10:00)
[2021-10-25] MEDS: LOSARTAN POTASSIUM 50 MG TAB PO SCH (13:04)
[2021-10-25] MEDS: SPIRONOLACTONE 25 MG TAB PO SCH (13:04)
[2021-10-25] MEDS: LORATADINE 10 MG TAB PO SCH (13:04)
[2021-10-25] MEDS: hydroCHLOROthiazide 25 MG TAB PO SCH (13:04)
--- NOTE | 2021-10-25 14:29 | Pharmacy Report ---
Pharmacy Glycemic Short Note 2 - Date of Service October 25, 2021 - Glycemic Short BSG Results (Last 24 hours): 10/24/21 10/24/21 10/24/21 13:30 20:40 20:42 Glucose 373 H* POC Glucose 322 H* 327 H* 10/24/21 10/24/21 10/25/21 23:45 23:46 04:26 Glucose POC Glucose 320 H* 326 H* 112 H 10/25/21 10/25/21 10/25/21 06:45 07:56 11:54 Glucose 103 H POC Glucose 113 H 161 H OUTPATIENT ANTIDIABETIC REGIMEN: * A1c = 11.1% ASSESSMENT: * Kamila is a 71 yo who presented to the ED with shortness of breath secondary to COVID-19 pneumonia and hyperglycemia * A1c of 11.1%. Patient does not appear to be on anti-diabetic medications as an outpatient. * She was given a regular insulin IV bolus + Lantus 25 units SQ last evening. * Significant improvement today. Will order a one time dose of weight based NPH to combat steroid induced hyperglycemia. * Continue Lantus but change to dose per BSG scale until needs are better known. * Continue novolog based on weight/stress of 3. PLAN FOR INPATIENT GLYCEMIC CONTROL: * Hold outpatient oral diabetes medications * Basal insulin * Lantus 0-20 units SQ HS (0 units BSG < 120, 10 units 120-180, 20 units for BSG > 180) * NPH 30 units SQ x 1 - reassess further dosing on 10/26 * Bolus insulin * NovoLog per scale ACHS or Q6hrs while NPO * Goal Range: Low 110 mg/dL - High 140 mg/dL * Correction Factor: 15 mg/dL/unit * Nutritional / Prandial insulin per carb ratio of 1 unit per 5 grams CHO consumed PLAN FOR DISCHARGE: * tbd
--- NOTE | 2021-10-25 14:34 | Hospitalist Progress Note ---
Date of Service October 25, 2021 Assessment & Plan (1) COVID-19: Plan: - unvaccinated female who presents to the hospital today on account of worsening shortness of breath. Tested positive for COVID-19. Chest x-ray showed evidence of bilateral infiltrates consistent with COVID-19 pneumonia. Symptoms started about 10 days prior to presentation. Currently on baricitinib, IV dexamethasone Monitor inflammatory markers Continue empiric IV antibiotics for suspected superimposed bacterial infection Check procalcitonin (2) Acute respiratory failure with hypoxia: Plan: Secondary to COVID-19 pneumonia Currently on 40 L high flow oxygen Wean as tolerated (3) Hypoxia: (4) Type 2 diabetes mellitus: Plan: Poorly controlled type 2 diabetes. Hemoglobin A1c 11 On insulin and insulin sliding scale (5) KEESHA (acute kidney injury): Plan: Most likely prerenal due to dehydration Recheck BMP (6) Hyperglycemia: (7) Paroxysmal supraventricular tachycardia: Plan: -h/o Wide Complex Tachycardia (only 1 brief and asymptomatic episode on 05/24/2019 and lasted 5 seconds at a rate of 180 bpm) -Patient has a loop recorder implanted. (8) HTN (hypertension): Plan: Blood pressure 158/77 Continue home medications (9) DVT prophylaxis: Plan: -SCDs ordered. -Lovenox 40 mg SQ Q12. (10) Morbid obesity: Plan: Patient was advised on diet and exercise Admission and Anticipated Discharge Date Admission Date: October 24, 2021 Subjective Patient seen and examined today, states that shortness of breath is much improved compared to yesterday Review of Systems Review of Systems: All systems reviewed are negative, apart from the ones contained in the history. Physical Exam Physical Exam: The patient is awake, alert and oriented 3, well developed and well nourished, normocephalic and atraumatic, lying in bed and in no acute distress. HEENT--PERRL, EOMI, mucous membranes and oropharynx mildly dry Neck--supple. No JVD. No bruits. Thyroid normal, trachea midline, no adenopathy. Heart--normal S1 and S2. No murmurs, rubs or gallops. Lungs--reduced and on auscultation. Abdomen--normal bowel sounds and soft. Mild epigastric and left sided abdominal pain Extremities--no cyanosis or clubbing. No edema. Dermatologic--normal skin turgor, normal color, no abnormal lymph nodes, no rash. Neurologic--cranial nerves II through XII grossly intact. Rheumatologic--normal range of motion. Psychiatric--normal affect. Results & Data Results & Data ([facility]) Vital Signs (Past 12 Hours) Vital Signs Temp Pulse Resp BP Pulse Ox 10/25/21 11:29 97.9 F 90 18 158/77 H 93 10/25/21 11:10 74 20 98 10/25/21 08:30 65 20 93 10/25/21 07:26 98.2 F 88 18 149/80 H 93 10/25/21 04:45 88 22 93 10/25/21 04:27 98.2 F 90 18 154/80 H 92 Laboratory Results Laboratory Results - last 24 hr 10/24/21 10/24/21 10/24/21 13:30 13:30 13:45 WBC RBC Hgb Hct MCV MCH MCHC RDW Std Deviation RDW Coeff of Jessica Plt Count MPV Immature Gran % (Auto) 0.6 Neut % (Auto) 79.5 Lymph % (Auto) 10.0 Darke % (Auto) 8.9 Eos % (Auto) 0.6 Baso % (Auto) 0.4 Neut # (Auto) 11.35 H Lymph # (Auto) 1.42 Darke # (Auto) 1.27 H Eos # (Auto) 0.09 Baso # (Auto) 0.06 Immature Gran # (Auto) 0.08 H Fibrinogen ABG pH ABG pCO2 ABG pO2 ABG HCO3 ABG O2 Saturation ABG Base Excess Herson Test Barometric Pressure Oxygen Given Sodium 134 L Potassium 3.6 Chloride 94 L Carbon Dioxide 25 Anion Gap 15 H BUN 26 H Creatinine 1.25 H Est Cr Clr Drug Dosing 48.2 Est GFR ( Amer) 49.4 Est GFR (Non-Af Amer) 42.6 BUN/Creatinine Ratio 20.8 H Glucose 373 H* POC Glucose Estimat Average Glucose Hemoglobin A1c Lactate 2.9 H* Calcium 8.9 Magnesium 2.0 Total Bilirubin 0.7 AST 15 ALT 11 Alkaline Phosphatase 61 C-Reactive Protein 18.40 H B-Natriuretic Peptide Total Protein 7.5 Albumin 3.4 Globulin 4.1 H Albumin/Globulin Ratio 0.8 L Adenovirus (PCR) B. pertussis DNA (PCR) B.parapertussis DNA PCR C. pneumoniae DNA (PCR) Coronavirus OC43 (PCR) Coronavirus HKU1 (PCR) Coronavirus 229E (PCR) SARS-CoV-2 (PCR) Coronavirus NL63 (PCR) Human Metapneumovir PCR Influenza Type A (PCR) Influenza Type B (PCR) M. pneumoniae (PCR) Parainfluenza 1 (PCR) Parainfluenza 2 (PCR) Parainfluenza 3 (PCR) Parainfluenza 4 (PCR) RSV (PCR) Entero/Rhino (PCR) 10/24/21 10/24/21 10/24/21 13:46 14:02 15:31 WBC RBC Hgb Hct MCV MCH MCHC RDW Std Deviation RDW Coeff of Jessica Plt Count MPV Immature Gran % (Auto) Neut % (Auto) Lymph % (Auto) Darke % (Auto) Eos % (Auto) Baso % (Auto) Neut # (Auto) Lymph # (Auto) Darke # (Auto) Eos # (Auto) Baso # (Auto) Immature Gran # (Auto) Fibrinogen ABG pH 7.47 H ABG pCO2 38 ABG pO2 56 L ABG HCO3 27 H ABG O2 Saturation 90.9 ABG Base Excess 3.0 H Herson Test POS Barometric Pressure 725.2 Oxygen Given 40% FiO2 Sodium Potassium Chloride Carbon Dioxide Anion Gap BUN Creatinine Est Cr Clr Drug Dosing Est GFR ( Amer) Est GFR (Non-Af Amer) BUN/Creatinine Ratio Glucose POC Glucose Estimat Average Glucose Hemoglobin A1c Lactate Calcium Magnesium Total Bilirubin AST ALT Alkaline Phosphatase C-Reactive Protein B-Natriuretic Peptide 84 Total Protein Albumin Globulin Albumin/Globulin Ratio Adenovirus (PCR) Not Detected B. pertussis DNA (PCR) Not Detected B.parapertussis DNA PCR Not Detected C. pneumoniae DNA (PCR) Not Detected Coronavirus OC43 (PCR) Not Detected Coronavirus HKU1 (PCR) Not Detected Coronavirus 229E (PCR) Not Detected SARS-CoV-2 (PCR) DETECTED A* Coronavirus NL63 (PCR) Not Detected Human Metapneumovir PCR Not Detected Influenza Type A (PCR) Not Detected Influenza Type B (PCR) Not Detected M. pneumoniae (PCR) Not Detected Parainfluenza 1 (PCR) Not Detected Parainfluenza 2 (PCR) Not Detected Parainfluenza 3 (PCR) Not Detected Parainfluenza 4 (PCR) Not Detected RSV (PCR) Not Detected Entero/Rhino (PCR) Not Detected 10/24/21 10/24/21 10/24/21 15:31 15:34 20:40 WBC RBC Hgb Hct MCV MCH MCHC RDW Std Deviation RDW Coeff of Jessica Plt Count MPV Immature Gran % (Auto) Neut % (Auto) Lymph % (Auto) Darke % (Auto) Eos % (Auto) Baso % (Auto) Neut # (Auto) Lymph # (Auto) Darke # (Auto) Eos # (Auto) Baso # (Auto) Immature Gran # (Auto) Fibrinogen 635 H ABG pH ABG pCO2 ABG pO2 ABG HCO3 ABG O2 Saturation ABG Base Excess Herson Test Barometric Pressure Oxygen Given Sodium Potassium Chloride Carbon Dioxide Anion Gap BUN Creatinine Est Cr Clr Drug Dosing Est GFR ( Amer) Est GFR (Non-Af Amer) BUN/Creatinine Ratio Glucose POC Glucose 322 H* Estimat Average Glucose Hemoglobin A1c Lactate 0.8 Calcium Magnesium Total Bilirubin AST ALT Alkaline Phosphatase C-Reactive Protein B-Natriuretic Peptide Total Protein Albumin Globulin Albumin/Globulin Ratio Adenovirus (PCR) B. pertussis DNA (PCR) B.parapertussis DNA PCR C. pneumoniae DNA (PCR) Coronavirus OC43 (PCR) Coronavirus HKU1 (PCR) Coronavirus 229E (PCR) SARS-CoV-2 (PCR) Coronavirus NL63 (PCR) Human Metapneumovir PCR Influenza Type A (PCR) Influenza Type B (PCR) M. pneumoniae (PCR) Parainfluenza 1 (PCR) Parainfluenza 2 (PCR) Parainfluenza 3 (PCR) Parainfluenza 4 (PCR) RSV (PCR) Entero/Rhino (PCR) 10/24/21 10/24/21 10/24/21 20:42 23:45 23:46 WBC RBC Hgb Hct MCV MCH MCHC RDW Std Deviation RDW Coeff of Jessica Plt Count MPV Immature Gran % (Auto) Neut % (Auto) Lymph % (Auto) Darke % (Auto) Eos % (Auto) Baso % (Auto) Neut # (Auto) Lymph # (Auto) Darke # (Auto) Eos # (Auto) Baso # (Auto) Immature Gran # (Auto) Fibrinogen ABG pH ABG pCO2 ABG pO2 ABG HCO3 ABG O2 Saturation ABG Base Excess Herson Test Barometric Pressure Oxygen Given Sodium Potassium Chloride Carbon Dioxide Anion Gap BUN Creatinine Est Cr Clr Drug Dosing Est GFR ( Amer) Est GFR (Non-Af Amer) BUN/Creatinine Ratio Glucose POC Glucose 327 H* 320 H* 326 H* Estimat Average Glucose Hemoglobin A1c Lactate Calcium Magnesium Total Bilirubin AST ALT Alkaline Phosphatase C-Reactive Protein B-Natriuretic Peptide Total Protein Albumin Globulin Albumin/Globulin Ratio Adenovirus (PCR) B. pertussis DNA (PCR) B.parapertussis DNA PCR C. pneumoniae DNA (PCR) Coronavirus OC43 (PCR) Coronavirus HKU1 (PCR) Coronavirus 229E (PCR) SARS-CoV-2 (PCR) Coronavirus NL63 (PCR) Human Metapneumovir PCR Influenza Type A (PCR) Influenza Type B (PCR) M. pneumoniae (PCR) Parainfluenza 1 (PCR) Parainfluenza 2 (PCR) Parainfluenza 3 (PCR) Parainfluenza 4 (PCR) RSV (PCR) Entero/Rhino (PCR) 10/25/21 10/25/21 10/25/21 04:26 06:45 06:45 WBC 7.68 RBC 3.71 L Hgb 11.4 L Hct 34.8 L MCV 93.8 MCH 30.7 MCHC 32.8 RDW Std Deviation 46.6 H RDW Coeff of Jessica 13.5 Plt Count 353 MPV 9.0 Immature Gran % (Auto) 0.5 Neut % (Auto) 69.0 Lymph % (Auto) 16.3 Darke % (Auto) 13.9 Eos % (Auto) 0.0 Baso % (Auto) 0.3 Neut # (Auto) 5.30 Lymph # (Auto) 1.25 Darke # (Auto) 1.07 H Eos # (Auto) 0.00 Baso # (Auto) 0.02 Immature Gran # (Auto) 0.04 H Fibrinogen ABG pH ABG pCO2 ABG pO2 ABG HCO3 ABG O2 Saturation ABG Base Excess Herson Test Barometric Pressure Oxygen Given Sodium 137 Potassium 4.1 Chloride 102 Carbon Dioxide 26 Anion Gap 9 BUN 26 H Creatinine 0.89 D Est Cr Clr Drug Dosing 67.7 Est GFR ( Amer) 74.5 Est GFR (Non-Af Amer) 64.3 BUN/Creatinine Ratio 29.2 H Glucose 103 H POC Glucose 112 H Estimat Average Glucose Hemoglobin A1c Lactate Calcium 8.6 Magnesium Total Bilirubin AST ALT Alkaline Phosphatase C-Reactive Protein B-Natriuretic Peptide Total Protein Albumin Globulin Albumin/Globulin Ratio Adenovirus (PCR) B. pertussis DNA (PCR) B.parapertussis DNA PCR C. pneumoniae DNA (PCR) Coronavirus OC43 (PCR) Coronavirus HKU1 (PCR) Coronavirus 229E (PCR) SARS-CoV-2 (PCR) Coronavirus NL63 (PCR) Human Metapneumovir PCR Influenza Type A (PCR) Influenza Type B (PCR) M. pneumoniae (PCR) Parainfluenza 1 (PCR) Parainfluenza 2 (PCR) Parainfluenza 3 (PCR) Parainfluenza 4 (PCR) RSV (PCR) Entero/Rhino (PCR) 10/25/21 10/25/21 10/25/21 06:45 06:49 07:56 WBC RBC Hgb Hct MCV MCH MCHC RDW Std Deviation RDW Coeff of Jessica Plt Count MPV Immature Gran % (Auto) Neut % (Auto) Lymph % (Auto) Darke % (Auto) Eos % (Auto) Baso % (Auto) Neut # (Auto) Lymph # (Auto) Darke # (Auto) Eos # (Auto) Baso # (Auto) Immature Gran # (Auto) Fibrinogen ABG pH ABG pCO2 ABG pO2 ABG HCO3 ABG O2 Saturation ABG Base Excess Herson Test Barometric Pressure Oxygen Given Sodium Potassium Chloride Carbon Dioxide Anion Gap BUN Creatinine Est Cr Clr Drug Dosing Est GFR ( Amer) Est GFR (Non-Af Amer) BUN/Creatinine Ratio Glucose POC Glucose 113 H Estimat Average Glucose 272 Hemoglobin A1c 11.1 H Lactate 0.6 Calcium Magnesium Total Bilirubin AST ALT Alkaline Phosphatase C-Reactive Protein B-Natriuretic Peptide Total Protein Albumin Globulin Albumin/Globulin Ratio Adenovirus (PCR) B. pertussis DNA (PCR) B.parapertussis DNA PCR C. pneumoniae DNA (PCR) Coronavirus OC43 (PCR) Coronavirus HKU1 (PCR) Coronavirus 229E (PCR) SARS-CoV-2 (PCR) Coronavirus NL63 (PCR) Human Metapneumovir PCR Influenza Type A (PCR) Influenza Type B (PCR) M. pneumoniae (PCR) Parainfluenza 1 (PCR) Parainfluenza 2 (PCR) Parainfluenza 3 (PCR) Parainfluenza 4 (PCR) RSV (PCR) Entero/Rhino (PCR) 10/25/21 11:54 WBC RBC Hgb Hct MCV MCH MCHC RDW Std Deviation RDW Coeff of Jessica Plt Count MPV Immature Gran % (Auto) Neut % (Auto) Lymph % (Auto) Darke % (Auto) Eos % (Auto) Baso % (Auto) Neut # (Auto) Lymph # (Auto) Darke # (Auto) Eos # (Auto) Baso # (Auto) Immature Gran # (Auto) Fibrinogen ABG pH ABG pCO2 ABG pO2 ABG HCO3 ABG O2 Saturation ABG Base Excess Herson Test Barometric Pressure Oxygen Given Sodium Potassium Chloride Carbon Dioxide Anion Gap BUN Creatinine Est Cr Clr Drug Dosing Est GFR ( Amer) Est GFR (Non-Af Amer) BUN/Creatinine Ratio Glucose POC Glucose 161 H Estimat Average Glucose Hemoglobin A1c Lactate Calcium Magnesium Total Bilirubin AST ALT Alkaline Phosphatase C-Reactive Protein B-Natriuretic Peptide Total Protein Albumin Globulin Albumin/Globulin Ratio Adenovirus (PCR) B. pertussis DNA (PCR) B.parapertussis DNA PCR C. pneumoniae DNA (PCR) Coronavirus OC43 (PCR) Coronavirus HKU1 (PCR) Coronavirus 229E (PCR) SARS-CoV-2 (PCR) Coronavirus NL63 (PCR) Human Metapneumovir PCR Influenza Type A (PCR) Influenza Type B (PCR) M. pneumoniae (PCR) Parainfluenza 1 (PCR) Parainfluenza 2 (PCR) Parainfluenza 3 (PCR) Parainfluenza 4 (PCR) RSV (PCR) Entero/Rhino (PCR) PG Care Time/CCT Total # of Minutes Spent Total Time Spent with Patient: Total time spent is greater than 50% in coordination of care (as documented) at patient's floor/unit and/or counseling patient: Coding Level of Care Code 50872 Subseq Hosp Care Lvl 2 Diagnoses COVID-19 U07.1 Hypoxia R09.02 KEESHA (acute kidney injury) N17.9 Hyperglycemia R73.9 Paroxysmal supraventricular tachycardia I47.1 HTN (hypertension) I10 Hypertension type: essential hypertension DVT prophylaxis Z29.9 Acute respiratory failure with hypoxia J96.01 Morbid obesity E66.01 Type 2 diabetes mellitus E11.9 Time Spent (min) 35 (1) HTN (hypertension) Hypertension type: essential hypertension Qualified Code(s): I10 - Essential (primary) hypertension
[2021-10-25] MEDS ORDERED: INSULIN GLARGINE SOLOSTAR 100 UNITS/ML 3 ML PEN SC SCH (14:45)
[2021-10-25] MEDS ORDERED: BARICITINIB 2 MG TAB PO SCH (21:00)
[2021-10-25] MEDS: INSULIN GLARGINE SOLOSTAR 100 UNITS/ML 3 ML PEN SC SCH (21:30)
[2021-10-26] MEDS: CEFEPIME 2,000 MG in SYRINGE 0 ML IV SCH ×3 (04:06→21:13)
[2021-10-26] MEDS: dexAMETHasone 6 MG in SYRINGE 0 ML IV SCH (08:08)
[2021-10-26] MEDS: LORATADINE 10 MG TAB PO SCH (08:08)
[2021-10-26] MEDS: hydroCHLOROthiazide 25 MG TAB PO SCH (08:08)
[2021-10-26] MEDS: LOSARTAN POTASSIUM 50 MG TAB PO SCH (08:09)
[2021-10-26] MEDS: SPIRONOLACTONE 25 MG TAB PO SCH (08:09)
[2021-10-26 08:56] LABS: Hematocrit (blood only) 38.4 % (37-47); Hemoglobin 12.6 g/dL (12.0-16.0); Mean Corpuscular Hemoglobin 30.7 pg (25-34); Mean Corpuscular Hgb Conc 32.8 g/dL (32-36); Mean Corpuscular Volume 93.7 fL (80-100); Mean Platelet Volume 9.1 fL (7.4-10.4); Platelet Count 384 K/uL (130-400); RDW Coefficient of Variation 13.5 % (11.5-14.5); RDW Standard Deviation 46.3 fL (36.4-46.3); White Blood Count 11.07 K/uL (4.8-10.8)
[2021-10-26] MEDS ORDERED: INSULIN HUMAN NPH SC SCH (09:00)
[2021-10-26] MEDS: ENOXAPARIN INJ 40 MG/0.4 ML SYR SQ SCH ×2 (09:42→21:14)
[2021-10-26] MEDS: INSULIN ASPART PER UNIT SC SCH ×4 (09:50→21:45)
[2021-10-26 11:42] LABS: BUN Creatinine Ratio 26.4 (10-20); C Reactive Protein 5.35 mg/dl (0-0.5); Creatinine Clr Calc Pharmacy 56.8 ml/min; Est GFR (African American) 60.3 ml/min
--- NOTE | 2021-10-26 12:57 | Hospitalist Progress Note ---
Date of Service October 26, 2021 Assessment & Plan (1) COVID-19: Plan: - She is an unvaccinated female who presented on account of worsening shortness of breath. She had been feeling sick for several days prior Tested positive for COVID-19 in the ED Chest x-ray showed evidence of bilateral infiltrates consistent with COVID-19 pneumonia. Out of window for Rendesivir Currently on Baricitinib, IV dexamethasone Monitor inflammatory markers Continue empiric IV antibiotics for suspected superimposed bacterial infection procalcitonin is slightly elevated (2) Acute respiratory failure with hypoxia: Plan: Secondary to COVID-19 pneumonia Currently on 15 L high flow oxygen Wean as tolerated (3) Type 2 diabetes mellitus: Plan: Poorly controlled type 2 diabetes. Hemoglobin A1c 11 On insulin and insulin sliding scale will follow up with an manager sterile upon discharge (4) KEESHA (acute kidney injury): Plan: Most likely prerenal due to dehydration Recheck BMP (5) Paroxysmal supraventricular tachycardia: Plan: -h/o Wide Complex Tachycardia (only 1 brief and asymptomatic episode on 05/24/2019 and lasted 5 seconds at a rate of 180 bpm) -Patient has a loop recorder implanted. (6) HTN (hypertension): Plan: Blood pressure 165/82 Continue home medications (7) Morbid obesity: Plan: Patient was advised on diet and exercise (8) DVT prophylaxis: Plan: -SCDs ordered. -Lovenox 40 mg SQ Q12. (9) Hypoxia: (10) Hyperglycemia: Admission and Anticipated Discharge Date Admission Date: October 24, 2021 Subjective Patient seen and examined today, states that shortness of breath is much improved compared to yesterday, but still coughing Review of Systems Review of Systems: All systems reviewed are negative, apart from the ones contained in the history. Physical Exam Physical Exam: The patient is awake, alert and oriented 3, well developed and well nourished, normocephalic and atraumatic, lying in bed and in no acute distress. HEENT--PERRL, EOMI, mucous membranes and oropharynx mildly dry Neck--supple. No JVD. No bruits. Thyroid normal, trachea midline, no adenopathy. Heart--normal S1 and S2. No murmurs, rubs or gallops. Lungs--reduced and on auscultation. Abdomen--normal bowel sounds and soft. Mild epigastric and left sided abdominal pain Extremities--no cyanosis or clubbing. No edema. Dermatologic--normal skin turgor, normal color, no abnormal lymph nodes, no rash. Neurologic--cranial nerves II through XII grossly intact. Rheumatologic--normal range of motion. Psychiatric--normal affect. Results & Data Results & Data ([facility]) Vital Signs (Past 12 Hours) Vital Signs Temp Pulse Pulse Resp BP Pulse Ox 10/26/21 11:36 98.2 F 92 H 16 165/82 H 98 10/26/21 08:03 97.3 F L 75 18 164/73 H 93 10/26/21 08:00 69 10/26/21 07:00 97.3 F L 85 18 167/84 H 97 10/26/21 03:00 98.2 F 67 20 136/78 96 PG Care Time/CCT Total # of Minutes Spent Total Time Spent with Patient: Total time spent is greater than 50% in coordination of care (as documented) at patient's floor/unit and/or counseling patient: Coding Level of Care Code 65270 Subseq Hosp Care Lvl 2 Diagnoses COVID-19 U07.1 Acute respiratory failure with hypoxia J96.01 Hypoxia R09.02 Type 2 diabetes mellitus E11.9 KEESHA (acute kidney injury) N17.9 Hyperglycemia R73.9 Paroxysmal supraventricular tachycardia I47.1 HTN (hypertension) I10 Hypertension type: essential hypertension DVT prophylaxis Z29.9 Morbid obesity E66.01 Time Spent (min) 35 (1) HTN (hypertension) Hypertension type: essential hypertension Qualified Code(s): I10 - Essential (primary) hypertension
--- NOTE | 2021-10-26 15:51 | Pharmacy Report ---
Pharmacy Glycemic Short Note 2 - Date of Service October 26, 2021 - Glycemic Short BSG Results (Last 24 hours): 10/25/21 10/25/21 10/26/21 16:54 20:21 07:54 Glucose POC Glucose 208 H 264 H 77 10/26/21 10/26/21 08:38 11:57 Glucose 92 POC Glucose 143 H OUTPATIENT ANTIDIABETIC REGIMEN: * A1c = 11.1% ASSESSMENT: 10/26/21: * Kamila received 87 units of insulin yesterday (20 units Lantus, 30 units NPH, 37 units Novolog) with decent BSG control * She remains on high dose IV steroids * Fasting BSG of 77 mg/dL - will decrease Lantus * Post prandial BSGs improved thus far today - no change to novolog for now 10/25/21: * Kamila is a 71 yo who presented to the ED with shortness of breath secondary to COVID-19 pneumonia and hyperglycemia * A1c of 11.1%. Patient does not appear to be on anti-diabetic medications as an outpatient. * She was given a regular insulin IV bolus + Lantus 25 units SQ last evening. * Significant improvement today. Will order a one time dose of weight based NPH to combat steroid induced hyperglycemia. * Continue Lantus but change to dose per BSG scale until needs are better known. * Continue novolog based on weight/stress of 3. PLAN FOR INPATIENT GLYCEMIC CONTROL: * Hold outpatient oral diabetes medications * Basal insulin * Lantus 0-15 units SQ HS (0 units BSG < 120, 10 units 120-200, 20 units for BSG > 200) * NPH 30 units SQ qAM - administer with dexamethasone IV * Bolus insulin * NovoLog per scale ACHS or Q6hrs while NPO * Goal Range: Low 110 mg/dL - High 140 mg/dL * Correction Factor: 15 mg/dL/unit * Nutritional / Prandial insulin per carb ratio of 1 unit per 5 grams CHO consumed PLAN FOR DISCHARGE: * tbd
[2021-10-26] MEDS: BARICITINIB 2 MG TAB PO SCH (21:14)
[2021-10-26] MEDS: INSULIN GLARGINE SOLOSTAR 100 UNITS/ML 3 ML PEN SC SCH (21:46)
[2021-10-27 06:17] LABS: Hematocrit (blood only) 37.5 % (37-47); Hemoglobin 12.4 g/dL (12.0-16.0); Mean Corpuscular Hemoglobin 31.3 pg (25-34); Mean Corpuscular Hgb Conc 33.1 g/dL (32-36); Mean Corpuscular Volume 94.7 fL (80-100); Mean Platelet Volume 8.9 fL (7.4-10.4); Platelet Count 375 K/uL (130-400); RDW Coefficient of Variation 13.5 % (11.5-14.5); RDW Standard Deviation 46.4 fL (36.4-46.3); Red Blood Count 3.96 M/uL (4.2-5.4); White Blood Count 12.47 K/uL (4.8-10.8)
[2021-10-27 06:41] LABS: BUN Creatinine Ratio 32.3 (10-20); C Reactive Protein 2.72 mg/dl (0-0.5); Calcium 8.7 mg/dl (8.5-10.1); Creatinine Clr Calc Pharmacy 60.9 ml/min; Est GFR (African American) 65.5 ml/min; Est GFR (Non-African American) 56.5 ml/min; Potassium 4.4 mmol/L (3.5-5.1)
[2021-10-27 07:41] LABS: Ferritin 524.6 ng/ml (8-388)
[2021-10-27] MEDS ORDERED: INSULIN HUMAN NPH SC SCH (09:00)
[2021-10-27] MEDS: INSULIN HUMAN NPH SC SCH (09:00)
[2021-10-27] MEDS: INSULIN ASPART PER UNIT SC SCH ×4 (09:00→21:02)
[2021-10-27] MEDS: SPIRONOLACTONE 25 MG TAB PO SCH (09:03)
[2021-10-27] MEDS: LOSARTAN POTASSIUM 50 MG TAB PO SCH (09:03)
[2021-10-27] MEDS: hydroCHLOROthiazide 25 MG TAB PO SCH (09:03)
[2021-10-27] MEDS: LORATADINE 10 MG TAB PO SCH (09:04)
[2021-10-27] MEDS: ENOXAPARIN INJ 40 MG/0.4 ML SYR SQ SCH ×2 (09:04→20:05)
[2021-10-27] MEDS: dexAMETHasone 6 MG in SYRINGE 0 ML IV SCH (09:04)
[2021-10-27] MEDS: CEFEPIME 2,000 MG in SYRINGE 0 ML IV SCH ×2 (09:29→20:07)
--- NOTE | 2021-10-27 11:47 | Hospitalist Progress Note ---
Date of Service October 27, 2021 Assessment & Plan (1) COVID-19: Plan: She is an unvaccinated female who presented on account of worsening shortness of breath. She had been feeling sick for several days prior Tested positive for COVID-19 in the ED Chest x-ray showed evidence of bilateral infiltrates consistent with COVID-19 pneumonia. Out of window for Remdesivir Currently on Baricitinib, IV dexamethasone and cefepime Monitor inflammatory markers Continue empiric IV antibiotics for suspected superimposed bacterial infection procalcitonin is slightly elevated (2) Acute respiratory failure with hypoxia: Plan: Secondary to COVID-19 pneumonia Continues to improve Currently on 6L oxygen through nasal canula Wean as tolerated (3) Type 2 diabetes mellitus: Plan: Poorly controlled type 2 diabetes. Hemoglobin A1c 11 On insulin and insulin sliding scale will need to follow up with an academic support center director upon discharge (4) KEESHA (acute kidney injury): Plan: Most likely prerenal due to dehydration Now resolved (5) Paroxysmal supraventricular tachycardia: Plan: -h/o Wide Complex Tachycardia (only 1 brief and asymptomatic episode on 05/24/2019 and lasted 5 seconds at a rate of 180 bpm) -Patient has a loop recorder implanted. (6) HTN (hypertension): Plan: Blood pressure 139/76 Continue home medications (7) Morbid obesity: Plan: Patient was advised on diet and exercise (8) DVT prophylaxis: Plan: -SCDs ordered. -Lovenox 40 mg SQ Q12. (9) Hypoxia: (10) Hyperglycemia: Admission and Anticipated Discharge Date Admission Date: October 24, 2021 Subjective Patient seen and examined today, states that shortness of breath is much improved compared to yesterday, but still coughing, sitting up in the chair Review of Systems Review of Systems: All systems reviewed are negative, apart from the ones contained in the history. Physical Exam Physical Exam: The patient is awake, alert and oriented 3, well developed and well nourished, normocephalic and atraumatic, lying in bed and in no acute distress. HEENT--PERRL, EOMI, mucous membranes and oropharynx mildly dry Neck--supple. No JVD. No bruits. Thyroid normal, trachea midline, no adenopathy. Heart--normal S1 and S2. No murmurs, rubs or gallops. Lungs--reduced and on auscultation. Abdomen--normal bowel sounds and soft. Mild epigastric and left sided abdominal pain Extremities--no cyanosis or clubbing. No edema. Dermatologic--normal skin turgor, normal color, no abnormal lymph nodes, no rash. Neurologic--cranial nerves II through XII grossly intact. Rheumatologic--normal range of motion. Psychiatric--normal affect. Results & Data Results & Data ([facility]) Vital Signs (Past 12 Hours) Vital Signs Temp Pulse Pulse Resp BP Pulse Ox 10/27/21 10:27 63 10/27/21 08:00 63 10/27/21 07:38 98.1 F 71 18 139/76 97 PG Care Time/CCT Total # of Minutes Spent Total Time Spent with Patient: Total time spent is greater than 50% in coordination of care (as documented) at patient's floor/unit and/or counseling patient: Coding Level of Care Code 04091 Subseq Hosp Care Lvl 2 Diagnoses COVID-19 U07.1 Acute respiratory failure with hypoxia J96.01 Type 2 diabetes mellitus E11.9 KEESHA (acute kidney injury) N17.9 Paroxysmal supraventricular tachycardia I47.1 HTN (hypertension) I10 Hypertension type: essential hypertension Morbid obesity E66.01 DVT prophylaxis Z29.9 Hypoxia R09.02 Hyperglycemia R73.9 Time Spent (min) 35 (1) HTN (hypertension) Hypertension type: essential hypertension Qualified Code(s): I10 - Essential (primary) hypertension
--- NOTE | 2021-10-27 14:59 | Pharmacy Report ---
Pharmacy Glycemic Short Note 2 - Date of Service October 27, 2021 - Glycemic Short BSG Results (Last 24 hours): 10/26/21 10/26/21 10/27/21 16:57 20:20 05:41 Glucose 92 POC Glucose 181 H 187 H 10/27/21 10/27/21 07:35 11:52 Glucose POC Glucose 89 181 H OUTPATIENT ANTIDIABETIC REGIMEN: * A1c = 11.1% ASSESSMENT: 10/27/21 * Patient's BSGs yesterday were [phone] mg/dL. Today's BSGs were 89-181 mg/dL. * Patient received 62 units of insulin with 40 units of basal (30 units of NPH and 10 units of Lantus) plus 22 units of bolus. * Will d/c Lantus for now as patient's fastings are low. Loosen CF at bedtime to prevent overcorrection. * Increase NPH as BSGs trend upwards throughout the day. 10/26/21: * Kamila received 87 units of insulin yesterday (20 units Lantus, 30 units NPH, 37 units Novolog) with decent BSG control * She remains on high dose IV steroids * Fasting BSG of 77 mg/dL - will decrease Lantus * Post prandial BSGs improved thus far today - no change to novolog for now 10/25/21: * Kamila is a 71 yo who presented to the ED with shortness of breath secondary to COVID-19 pneumonia and hyperglycemia * A1c of 11.1%. Patient does not appear to be on anti-diabetic medications as an outpatient. * She was given a regular insulin IV bolus + Lantus 25 units SQ last evening. * Significant improvement today. Will order a one time dose of weight based NPH to combat steroid induced hyperglycemia. * Continue Lantus but change to dose per BSG scale until needs are better known. * Continue novolog based on weight/stress of 3. PLAN FOR INPATIENT GLYCEMIC CONTROL: * Hold outpatient oral diabetes medications * Basal insulin * Lantus d/c * NPH 35 units SQ qAM - administer with dexamethasone IV * Bolus insulin * NovoLog per scale ACHS or Q6hrs while NPO * Goal Range: Low 110 mg/dL - High 140 mg/dL * Correction Factor: 15 mg/dL/unit (25 mg/dL/unit at bedtime) * Nutritional / Prandial insulin per carb ratio of 1 unit per 5 grams CHO consumed (none at bedtime) PLAN FOR DISCHARGE: * tbd
[2021-10-27] MEDS: BARICITINIB 2 MG TAB PO SCH (20:06)
[2021-10-28 08:22] LABS: Creatinine Clr Calc Pharmacy 64.1 ml/min; Est GFR (African American) 69.8 ml/min; Est GFR (Non-African American) 60.2 ml/min
[2021-10-28] MEDS: LORATADINE 10 MG TAB PO SCH (08:30)
[2021-10-28] MEDS: LOSARTAN POTASSIUM 50 MG TAB PO SCH (08:30)
[2021-10-28] MEDS: dexAMETHasone 6 MG in SYRINGE 0 ML IV SCH (08:30)
[2021-10-28] MEDS: hydroCHLOROthiazide 25 MG TAB PO SCH (08:30)
[2021-10-28] MEDS: SPIRONOLACTONE 25 MG TAB PO SCH (08:30)
[2021-10-28] MEDS: ENOXAPARIN INJ 40 MG/0.4 ML SYR SQ SCH ×2 (08:30→21:10)
[2021-10-28] MEDS: INSULIN HUMAN NPH SC SCH (08:39)
[2021-10-28] MEDS: INSULIN ASPART PER UNIT SC SCH ×4 (08:40→21:21)
--- NOTE | 2021-10-28 10:24 | Hospitalist Progress Note ---
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 She had been feeling sick for several days prior Tested positive for COVID-19 in the ED Chest x-ray showed evidence of bilateral infiltrates consistent with COVID-[address] angiogram chest negative for PE but shows extensive pneumonia Out of window for Remdesivir Was initially requiring high flow nasal cannula at 15 L and CRP was elevated to 18-was started on baricitinib and now CRP trended down to 2.7 Procalcitonin was slightly elevated -Continue baricitinib -Continue IV dexamethasone 6 mg daily -Continue IV cefepime to cover for gram-negative pneumonia in the setting of elevated procalcitonin Covid-19 -Continue supplemental O2-now weaned down to 3 L-wean off as able to -Continue flutter valve -Follow blood cultures-no growth to date (2) Acute respiratory failure with hypoxia: Plan: Secondary to COVID-19 pneumonia Continues to improve as above, now down to 3 L nasal cannula Wean O2 as tolerated Continue albuterol nebs as needed (3) Type 2 diabetes mellitus: Plan: Poorly controlled type 2 diabetes. Hemoglobin A1c 11 On basal and bolus insulin as directed by pharmacy consult Needs closer follow-up as an outpatient Not on any medications as an outpatient (4) KEESHA (acute kidney injury): Plan: Most likely prerenal due to dehydration Now resolved (5) Paroxysmal supraventricular tachycardia: Plan: -h/o Wide Complex Tachycardia (only 1 brief and asymptomatic episode on 05/24/2019 and lasted 5 seconds at a rate of 180 bpm) -Patient has a loop recorder implanted. No issues, normal sinus rhythm on telemetry Has a right bundle branch block Continue to monitor on telemetry (6) HTN (hypertension): Plan: Blood pressure controlled Continue home HCTZ, losartan, Aldactone (7) Morbid obesity: Plan: Patient was advised on diet and exercise BMI 41.1 (8) DVT prophylaxis: Plan: -SCDs ordered. -Lovenox 40 mg SQ Q12. Plan: Disposition-continued stay on telemetry COVID unit, but slowly improving, may be able to discharge to home in the next 2 days We will assess with PT/OT consults to assess need for home health or rehab Admission and Anticipated Discharge Date Admission Date: October 24, 2021 Subjective Patient feeling short of breath after returning from the bathroom but overall improved since admission. Feels very tired. Is eating and drinking, no nausea or vomiting, no diarrhea. No abdominal pains. Telemetry is normal sinus rhythm and IVCD rates in the 60s to 80s Review of Systems Review of Systems: All systems reviewed & are unremarkable except as noted in HPI & below Physical Exam Constitutional: WD/WN, vitals as above + obese Eyes: + anicteric sclerae ENMT: external ear and nose normal, oropharynx normal Neck: trachea midline, no thyromegaly Respiratory: + tachypneic (After just returning from walking to the bathroom) Auscultation: + crackles (Bibasilar); no rhonchi and no wheezes Cardiovascular: RRR, no murmur, no edema Chest (Breasts): Chest: normal inspection of chest Gastrointestinal (Abdomen): normal bowel sounds, soft, nontender, no hepatosplenomegaly Musculoskeletal: Extremities: extremities normal to inspection; no cyanosis and no clubbing Skin: no rashes, warm and dry Neurologic: moves all extremities and awake; no focal motor deficits Psychiatric: A+Ox3, euthymic affect Lymphatic: no lymphedema Results & Data Results & Data ([facility]) Vital Signs (Past 12 Hours) Vital Signs Temp Pulse Pulse Resp BP Pulse Ox 10/28/21 07:41 36.6 C 82 17 131/77 91 10/28/21 05:07 63 10/28/21 03:35 36.8 C 60 18 145/81 H 98 10/27/21 22:43 36.6 C 70 20 138/73 97 Laboratory Results 10/28/21 10/28/21 10/28/21 Range/Units 16:47 11:50 07:43 Creatinine (0.6-1.2) mg/dl Est Cr Clr Drug Dosing ml/min Est GFR ( Amer) ml/min Est GFR (Non-Af Amer) ml/min POC Glucose 164 H 105 H 93 (70-99) mg/dl 10/28/21 10/27/21 Range/Units 06:37 20:23 Creatinine 0.94 (0.6-1.2) mg/dl Est Cr Clr Drug Dosing 64.1 ml/min Est GFR ( Amer) 69.8 ml/min Est GFR (Non-Af Amer) 60.2 ml/min POC Glucose 142 H (70-99) mg/dl PG Care Time/CCT Total # of Minutes Spent Total Time Spent with Patient: Total time spent is greater than 50% in coordination of care (as documented) at patient's floor/unit and/or counseling patient: Coding Level of Care Code 39393 Subseq Hosp Care Lvl 3 Diagnoses COVID-19 U07.1 Acute respiratory failure with hypoxia J96.01 Type 2 diabetes mellitus E11.9 KEESHA (acute kidney injury) N17.9 Paroxysmal supraventricular tachycardia I47.1 HTN (hypertension) I10 Hypertension type: essential hypertension Morbid obesity E66.01 DVT prophylaxis Z29.9 (1) HTN (hypertension) Hypertension type: essential hypertension Qualified Code(s): I10 - Essential (primary) hypertension
[2021-10-28] MEDS: CEFEPIME 2,000 MG in SYRINGE 0 ML IV SCH ×2 (13:50→18:34)
[2021-10-28] MEDS: BARICITINIB 2 MG TAB PO SCH (21:09)
[2021-10-28] MEDS: ACETAMINOPHEN 325 MG TAB PO PRN (21:17)
[2021-10-29] MEDS: CEFEPIME 2,000 MG in SYRINGE 0 ML IV SCH ×3 (02:58→17:26)
[2021-10-29] MEDS: dexAMETHasone 6 MG in SYRINGE 0 ML IV SCH (08:14)
[2021-10-29] MEDS: INSULIN ASPART PER UNIT SC SCH ×4 (08:14→21:00)
[2021-10-29] MEDS: ENOXAPARIN INJ 40 MG/0.4 ML SYR SQ SCH ×2 (08:14→20:19)
[2021-10-29] MEDS: hydroCHLOROthiazide 25 MG TAB PO SCH (08:15)
[2021-10-29] MEDS: SPIRONOLACTONE 25 MG TAB PO SCH (08:15)
[2021-10-29] MEDS: LORATADINE 10 MG TAB PO SCH (08:15)
[2021-10-29] MEDS: LOSARTAN POTASSIUM 50 MG TAB PO SCH (08:15)
[2021-10-29] MEDS: INSULIN HUMAN NPH SC SCH (08:33)
[2021-10-29 08:34] LABS: Basophils # (auto) 0.01 K/uL (0-0.2); Basophils % (auto) 0.1 %; Eosinophils # (auto) 0.21 K/uL (0-0.5); Eosinophils % (auto) 1.4 %; Hematocrit (blood only) 42.2 % (37-47); Hemoglobin 13.6 g/dL (12.0-16.0); Immature Granulocytes # (auto) 0.16 K/uL (0.00-0.02); Immature Granulocytes % (auto) 1.1 %; Lymphocytes # (auto) 3.01 K/uL (1.2-3.4); Lymphocytes % (auto) 20.7 %; Mean Corpuscular Hemoglobin 30.6 pg (25-34); Mean Corpuscular Hgb Conc 32.2 g/dL (32-36); Mean Corpuscular Volume 94.8 fL (80-100); Mean Platelet Volume 9.1 fL (7.4-10.4); Monocytes # (auto) 1.58 K/uL (0.11-0.59); Monocytes % (auto) 10.9 %; Neutrophils # (auto) 9.56 K/uL (1.4-6.5); Neutrophils % (auto) 65.8 %; Platelet Count 416 K/uL (130-400); RDW Coefficient of Variation 13.6 % (11.5-14.5); Red Blood Count 4.45 M/uL (4.2-5.4); White Blood Count 14.53 K/uL (4.8-10.8)
[2021-10-29 09:04] LABS: Albumin Level 3.5 gm/dl (3.4-5.0); BUN Creatinine Ratio 33.3 (10-20); Bilirubin,Total 0.6 mg/dl (0.2-1.0); Calcium 9.2 mg/dl (8.5-10.1); Creatinine Clr Calc Pharmacy 58.8 ml/min; Est GFR (Non-African American) 52.6 ml/min; Globulin 3.4 gm/dl (2.5-4.0); Potassium 4.5 mmol/L (3.5-5.1); Total Protein 6.9 gm/dl (6.0-8.3)
--- NOTE | 2021-10-29 09:49 | Hospitalist Progress Note ---
Date of Service October 29, 2021 Assessment & Plan (1) COVID-19: Plan: Tested positive for COVID-19 in the ED Chest x-ray showed evidence of bilateral infiltrates consistent with COVID-[address] angiogram chest negative for PE but shows extensive pneumonia Out of window for Remdesivir Was initially requiring high flow nasal cannula at 15 L and CRP was elevated to 18-was started on baricitinib and now CRP trended down to 2.7 Procalcitonin was slightly elevated -Continue baricitinib -Continue IV dexamethasone 6 mg daily -Continue IV cefepime to cover for gram-negative pneumonia in the setting of elevated procalcitonin Covid-19 -Continue supplemental O2-now down to room air at rest, might need oxygen on exertion -Continue flutter valve -Follow blood cultures-no growth to date could be ready for discharge tomorrow, will get a 2 step in morning (2) Acute respiratory failure with hypoxia: Plan: Secondary to COVID-19 pneumonia Continues to improve as above, now down to room air at rest, she is 90%, no distress likely needs oxygen on exertion plan for 2 step tomorrow morning Wean O2 as tolerated Continue albuterol nebs as needed (3) Type 2 diabetes mellitus: Plan: Poorly controlled type 2 diabetes. Hemoglobin A1c 11 On basal and bolus insulin as directed by pharmacy consult all sugars < 200, well controlled, no hypoglycemia (4) KEESHA (acute kidney injury): Plan: Most likely prerenal due to dehydration Now resolved (5) Paroxysmal supraventricular tachycardia: Plan: -h/o Wide Complex Tachycardia (only 1 brief and asymptomatic episode on 05/24/2019 and lasted 5 seconds at a rate of 180 bpm) -Patient has a loop recorder implanted. No issues, normal sinus rhythm on telemetry Has a right bundle branch block Continue to monitor on telemetry (6) HTN (hypertension): Plan: Blood pressure is normal today Continue home HCTZ, losartan, Aldactone (7) Morbid obesity: Plan: Patient was advised on diet and exercise BMI 41.1 (8) DVT prophylaxis: Plan: -SCDs ordered. -Lovenox 40 mg SQ Q12 would recommend Xarelto 10mg daily on discharge Plan: Disposition- get PT/OT evaluations as she lives alone needs a 2 step anticipate discharge to home tomorrow Admission and Anticipated Discharge Date Admission Date: October 24, 2021 Subjective reviewed labs and chart patient doing well on room air, laying flat, she is ambulating to bathroom and back she gets short of breath on exertion + cough but no sputum, no fever, no diarrhea she thinks she could go home tomorrow, discussed that she may need some oxygen on exertion Review of Systems Review of Systems: All systems reviewed & are unremarkable except as noted in Subjective Constitutional: + fatigue and + weakness; no fever Respiratory: + cough and + dyspnea on exertion; no dyspnea and no sputum production Cardiovascular: no chest pain Gastrointestinal: no abdominal pain, no nausea, no vomiting, no constipation and no diarrhea/loose stools Physical Exam Physical Exam: General: well developed, overweight female, no acute distress, comfortable Neck: supple, trachea midline, normal thyroid Lungs: clear to auscultation bilaterally, normal respiratory effort, no accessory muscle use, no distress Heart: regular S1 and S2, no murmur, peripheral pulses normal, capillary refill normal, no edema Abdomen: soft, NT, ND, + BS, no hepatomegaly, normal to percussion Extremities: normal in appearance, no cyanosis, no petechiae, strength is 5/5 bilaterally Neuro: awake, cooperative, moves all extremities, no focal motor deficits, CN II-XII intact, sensation in extremities intact, normal speech Skin: warm, dry, no rash, normal turgor Psych: Awake, alert oriented x 3, euthymic affect Results & Data Results & Data ([facility]) Vital Signs (Past 12 Hours) Vital Signs Temp Pulse Pulse Resp BP BP Pulse Ox 10/29/21 07:33 36.3 C L 73 18 128/74 93 10/29/21 05:14 36.7 C 71 18 118/69 90 10/28/21 23:20 36.3 C L 71 18 148/77 H 92 10/28/21 22:19 64 Laboratory Results Laboratory Results - last 24 hr 10/28/21 10/28/21 10/28/21 11:50 16:47 19:40 WBC RBC Hgb Hct MCV MCH MCHC RDW Std Deviation RDW Coeff of Jessica Plt Count MPV Immature Gran % (Auto) Neut % (Auto) Lymph % (Auto) [place] % (Auto) Eos % (Auto) Baso % (Auto) Neut # (Auto) Lymph # (Auto) [place] # (Auto) Eos # (Auto) Baso # (Auto) Immature Gran # (Auto) Sodium Potassium Chloride Carbon Dioxide Anion Gap BUN Creatinine Est Cr Clr Drug Dosing Est GFR ( Amer) Est GFR (Non-Af Amer) BUN/Creatinine Ratio Glucose POC Glucose 105 H 164 H 179 H Calcium Total Bilirubin AST ALT Alkaline Phosphatase Total Protein Albumin Globulin Albumin/Globulin Ratio 10/29/21 10/29/21 10/29/21 08:01 08:11 08:11 WBC 14.53 H RBC 4.45 Hgb 13.6 Hct 42.2 MCV 94.8 MCH 30.6 MCHC 32.2 RDW Std Deviation 47.0 H RDW Coeff of Jessica 13.6 Plt Count 416 H MPV 9.1 Immature Gran % (Auto) 1.1 Neut % (Auto) 65.8 Lymph % (Auto) 20.7 [place] % (Auto) 10.9 Eos % (Auto) 1.4 Baso % (Auto) 0.1 Neut # (Auto) 9.56 H Lymph # (Auto) 3.01 [place] # (Auto) 1.58 H Eos # (Auto) 0.21 Baso # (Auto) 0.01 Immature Gran # (Auto) 0.16 H Sodium 136 Potassium 4.5 Chloride 100 Carbon Dioxide 28 Anion Gap 8 BUN 35 H Creatinine 1.05 Est Cr Clr Drug Dosing 58.8 Est GFR ( Amer) 61.0 Est GFR (Non-Af Amer) 52.6 BUN/Creatinine Ratio 33.3 H Glucose 75 POC Glucose 75 Calcium 9.2 Total Bilirubin 0.6 AST 42 H ALT 52 Alkaline Phosphatase 47 Total Protein 6.9 Albumin 3.5 Globulin 3.4 Albumin/Globulin Ratio 1.0 Medications Administered Current Inpatient Medications Acetaminophen (Acetaminophen 325 Mg Tab) 650 mg PO Q4H PRN PRN Reason: Pain or Fever Stop: 11/23/21 19:34 Last Admin: 10/28/21 21:17 Dose: 650 mg Documented by: Albuterol (Albuterol 0.083% Nebu Soln 3 Ml Vial) 2.5 mg NEB Q6R PRN; Protocol PRN Reason: Shortness Of Breath Stop: 11/23/21 16:53 Baricitinib (Baricitinib 2 Mg Tab) 2 mg PO HS RIMA Stop: 11/07/21 20:59 Last Admin: 10/28/21 21:09 Dose: 2 mg Documented by: Dextrose (Dextrose 50% 50 Ml Syringe) 25 - 50 ml IV UD PRN; Protocol PRN Reason: Hypoglycemia Protocol Stop: 11/23/21 19:34 Enoxaparin Sodium (Enoxaparin Inj 40 Mg/0.4 Ml Syr) 40 mg SQ Q12 RIMA Stop: 11/23/21 20:59 Last Admin: 10/29/21 08:14 Dose: 40 mg Documented by: Glucagon (Glucagon For Inj 1 Mg Vial) 1 mg SQ UD PRN; Protocol PRN Reason: Hypoglycemia Protocol Stop: 11/23/21 19:34 Glucose (Glucose 10 Tabs/Tube) 4 - 8 tabs PO UD PRN; Protocol PRN Reason: Hypoglycemia Protocol Stop: 11/23/21 19:34 Glucose (Glucose 40% Gel 15 Gm Tube) 15 - 30 gm PO UD PRN; Protocol PRN Reason: Hypoglycemia Protocol Stop: 11/23/21 19:34 Hydrochlorothiazide (Hydrochlorothiazide 25 Mg Tab) 25 mg PO DAILY RIMA Stop: 11/24/21 11:44 Last Admin: 10/29/21 08:15 Dose: 25 mg Documented by: Dexamethasone 6 mg/ Syringe 1.5 mls @ 1 mls/min IV DAILY [facility] Stop: 11/03/21 09:02 Last Admin: 10/29/21 08:14 Dose: 1 mls/min Documented by: Cefepime HCl 2,000 mg/ Syringe 20 mls @ 5 mls/min IV Q8H [facility]; Protocol Stop: 10/31/21 17:59 Last Admin: 10/29/21 02:58 Dose: 5 mls/min Documented by: Insulin Aspart (Insulin Aspart Per Unit) 0 units SC DAILY@0730,1130,1630 [facility] Stop: 11/26/21 16:29 Last Admin: 10/29/21 08:14 Dose: Not Given Documented by: Insulin Aspart (Insulin Aspart Per Unit) 0 units SC HS [facility] Stop: 11/26/21 20:59 Last Admin: 10/28/21 21:21 Dose: 2 units Documented by: Insulin Human NPH (Insulin Human Nph) 35 units SC QAM [facility] Stop: 11/26/21 08:59 Last Admin: 10/29/21 08:33 Dose: 35 units Documented by: Loratadine (Loratadine 10 Mg Tab) 10 mg PO DAILY [facility] Stop: 11/24/21 11:44 Last Admin: 10/29/21 08:15 Dose: 10 mg Documented by: Losartan Potassium (Losartan Potassium 50 Mg Tab) 100 mg PO DAILY [facility] Stop: 11/24/21 11:44 Last Admin: 10/29/21 08:15 Dose: 100 mg Documented by: Miscellaneous (Carbohydrates For Hypoglycemia ) 15 - 30 gm PO UD PRN PRN Reason: Hypoglycemia Protocol Stop: 11/23/21 19:34 Miscellaneous Information (Pharmacy Glycemic Mgmt Consult) 1 ea N/A UD PRN; Protocol PRN Reason: Consult Stop: 11/23/21 19:34 Ondansetron HCl (Ondansetron Inj 2 Mg/Ml 2 Ml Vial) 4 mg IV Q6H PRN PRN Reason: Nausea Stop: 11/23/21 19:34 Polyethylene Glycol (Polyethylene (Miralax) 17 Gm Pack) 17 gm PO DAILY PRN PRN Reason: Constipation Stop: 11/23/21 19:34 Spironolactone (Spironolactone 25 Mg Tab) 25 mg PO DAILY [facility] Stop: 11/24/21 11:44 Last Admin: 10/29/21 08:15 Dose: 25 mg Documented by: PG Care Time/CCT Total # of Minutes Spent Total Time Spent with Patient: Total time spent is greater than 50% in coordination of care (as documented) at patient's floor/unit and/or counseling patient: Coding Level of Care Code 76771 Subseq Hosp Care Lvl 3 Diagnoses COVID-19 U07.1 Acute respiratory failure with hypoxia J96.01 Type 2 diabetes mellitus E11.9 KEESHA (acute kidney injury) N17.9 Paroxysmal supraventricular tachycardia I47.1 HTN (hypertension) I10 Hypertension type: essential hypertension Morbid obesity E66.01 DVT prophylaxis Z29.9 (1) HTN (hypertension) Hypertension type: essential hypertension Qualified Code(s): I10 - Essential (primary) hypertension
[2021-10-29] MEDS: ACETAMINOPHEN 325 MG TAB PO PRN (19:35)
[2021-10-29] MEDS: BARICITINIB 2 MG TAB PO SCH (20:19)
[2021-10-30] MEDS: CEFEPIME 2,000 MG in SYRINGE 0 ML IV SCH ×2 (02:56→10:25)
[2021-10-30] MEDS: INSULIN HUMAN NPH SC SCH (08:04)
[2021-10-30] MEDS: INSULIN ASPART PER UNIT SC SCH ×2 (08:04→12:22)
[2021-10-30] MEDS: ENOXAPARIN INJ 40 MG/0.4 ML SYR SQ SCH (08:14)
[2021-10-30] MEDS: LOSARTAN POTASSIUM 50 MG TAB PO SCH (08:14)
[2021-10-30] MEDS: LORATADINE 10 MG TAB PO SCH (08:15)
[2021-10-30] MEDS: hydroCHLOROthiazide 25 MG TAB PO SCH (08:15)
[2021-10-30] MEDS: SPIRONOLACTONE 25 MG TAB PO SCH (08:15)
[2021-10-30] MEDS: dexAMETHasone 6 MG in SYRINGE 0 ML IV SCH (09:07)
[2021-10-30 09:09] LABS: Creatinine Clr Calc Pharmacy 59.5 ml/min; Est GFR (African American) 61.7 ml/min; Est GFR (Non-African American) 53.3 ml/min
--- NOTE | 2021-10-30 10:28 | Discharge Summary ---
Date of Service October 30, 2021 Admission HPI Per Admitting Provider Patient is a 69 y/o female with a PMH of HTN and SVT who presents today with increasing SOB. Pt began experiencing nasal congestion, productive cough, rhinorrhea, low grade fever, and fatigue about 10 days ago. She called her PCP who advised her to isolate and use OTC medications to manage her symptoms at the time. Patient improved over the next several days with Tylenol, however began to decline again over the past 4 days with the above symptoms as well as increasing SOB and fatigue. 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 She denies sick contacts. She had not been tested for COVID-19, but test in ED today is positive. Patient came into the ED with initial SaO2 at 61% on RA but improved to mid 90s on 65% FIO2. She received 10 gm IV Decadron as well as DuoNeb treatment, as well as 5 units of Novolin as her sugar was 373. Hospitalist team was consulted for admission. Principal Diagnosis COVID 19 pneumonia Acute hypoxic respiratory failure Discharge Exam General: well developed, overweight female, no acute distress, comfortable Neck: supple, trachea midline, normal thyroid Lungs: clear to auscultation bilaterally, normal respiratory effort, no accessory muscle use, no distress Heart: regular S1 and S2, no murmur, peripheral pulses normal, capillary refill normal, no edema Abdomen: soft, NT, ND, + BS, no hepatomegaly, normal to percussion Extremities: normal in appearance, no cyanosis, no petechiae, strength is 5/5 bilaterally Neuro: awake, cooperative, moves all extremities, no focal motor deficits, CN II-XII intact, sensation in extremities intact, normal speech Skin: warm, dry, no rash, normal turgor Psych: Awake, alert oriented x 3, euthymic affect Discharge Data Allergies Allergy/AdvReac Type Severity Reaction Status Date / Time erythromycin base Allergy Severe ANAPHYLAXIS Verified 10/24/21 17:56 metformin Allergy Severe GENERALIZED Verified 10/24/21 17:56 RASH AND ITCHING Penicillins Allergy Severe ANAPHYLAXIS, Verified 10/24/21 17:56 RASH cefaclor Allergy Intermediate RASH Verified 10/24/21 17:56 tetanus toxoid, adsorbed Allergy Intermediate REDNESS, Verified 10/25/21 14:04 SWELLING AT INSERTION SITE Quinolones Allergy Mild RASH Verified 10/24/21 17:56 clindamycin Allergy Unknown Unknown Verified 10/25/21 14:03 Influenza Virus Vaccines Allergy Unknown Unknown Verified 10/25/21 14:03 Sulfa (Sulfonamide Allergy Unknown Unknown Verified 10/25/21 14:03 Antibiotics) tetracycline Allergy Unknown Unknown Verified 10/25/21 14:03 Tetracyclines Allergy Unknown MINOCYCLINE Verified 10/24/21 17:56 /DOXY prednisone AdvReac Intermediate PSYCHOSIS Verified 10/24/21 17:56 vancomycin AdvReac Intermediate RED MAN Verified 10/24/21 17:56 SYNDROME - RASH, WBC DECREASED Consultations 10/24/21 15:14 ED Decision to Admit Stat Ordered Studies 10/24/21 14:23 CT angio chest PE protocol Stat Diabetes Follow up Diabetes Follow-up Needed for HgbA1c >9% Hospital Course (1) COVID-19: Tested positive for COVID-19 in the ED Chest x-ray showed evidence of bilateral infiltrates consistent with COVID-[address] angiogram chest negative for PE but shows extensive pneumonia Out of window for Remdesivir Was initially requiring high flow nasal cannula at 15 L and CRP was elevated to 18-was started on baricitinib and now CRP trended down to 2.7 (when last checked) Procalcitonin was slightly elevated -responded well to baricitinib, dexamethasone and antibiotics - down to room air at rest, two step today showed that she did not need oxygen on exertion either, lowest was 91% while walking discharge to home, dexamethasone for 3 more days recommend taking Xarelto 10mg daily for 30 days to prevent clots (2) Acute respiratory failure with hypoxia: Secondary to COVID-19 pneumonia Continues to improve and now resolved 2 step today shows that she is stable on room air both at rest and on exertion (3) Type 2 diabetes mellitus: Poorly controlled type 2 diabetes. Hemoglobin A1c 11%, needs follow up recommend NPH insulin 35 units in morning with dexamethasone the next 3 mornings follow up with PCP (4) KEESHA (acute kidney injury): Most likely prerenal due to dehydration Now resolved for several days (5) Paroxysmal supraventricular tachycardia: -h/o Wide Complex Tachycardia (only 1 brief and asymptomatic episode on 05/24/2019 and lasted 5 seconds at a rate of 180 bpm) -Patient has a loop recorder implanted. No issues, normal sinus rhythm on telemetry Has a right bundle branch block Continue to monitor on telemetry (6) HTN (hypertension): Blood pressure is normal Continue home HCTZ, losartan, Aldactone (7) Morbid obesity: Patient was advised on diet and exercise BMI 41.1 (8) DVT prophylaxis: -SCDs ordered. -Lovenox 40 mg SQ Q12 would recommend Xarelto 10mg daily on discharge Disposition- home with self care Total Time Total Time Spent Total Time Spent (In Minutes): 35 minutes Total Time Includes: Examination of the Patient, Discharge Planning, Medication Reconciliation and Other (spoke with patient's sister) Discharge Plan Discharge Items Patient Disposition: Home - Self-Care Reason For Visit: SOB, COVID-19 + Discharge Diagnosis: COVID 19 pneumonia Acute hypoxic respiratory failure, resolved Condition on Discharge: Good Goals: complete course of dexamethasone stay well rested, well nourished, well hydrated Activity: Resume your previous activity Driving/Machine Use: Resume 1 day after discharge Weightbearing: Full weightbearing Non-emergency contact: Primary Care Provider Call non-emergency contact if: you have any medication questions and your symptoms worsen Follow-up/Referrals: Raciel Garsia MD [Primary Care Provider] - (one week) Diet: Carb Consistent or DM2 Addtl Attending Provider Instructions: Medications: - DEXAMETHASONE: 6mg daily for 3 more days to complete 10 days total - NPH INSULIN: 35 units in the morning with the dexamethasone, only need to take for 3 days - XARELTO: 10mg daily for 30 days, this is low dose blood thinner that prevents blood clots associated with COVID infection COVID 19 pneumonia, acute hypoxic respiratory failure responded quite well to dexamethasone and baricitinib down to room air both at rest and on exertion, eating well, independent in the room will need 3 more days of dexamethasone at home please take the Xarelto to prevent blood clots follow up with Dr. Garsia in a week Pending Studies at Discharge: No Stand-Alone Forms: [employer], Smoking Cessation Medications and DC Order Prescriptions: New Novolin N NPH U-100 Insulin 100 unit/mL Suspension 35 unit SC QAM 3 Days Qty: 1.05 RF: 0 dexamethasone 4 mg tablet 6 mg PO DAILY 3 Days Qty: 5 RF: 0 Xarelto 10 mg tablet 10 mg PO DAILY Qty: 30 RF: 0 Continued loratadine 10 mg capsule 10 mg PO DAILY RF: 0 hydrochlorothiazide 25 mg tablet 25 mg PO DAILY Qty: 90 RF: 3 losartan 100 mg tablet 100 mg PO DAILY Qty: 90 RF: 3 spironolactone 25 mg tablet 25 mg PO DAILY Qty: 90 RF: 3 acetaminophen [Tylenol Extra Strength] 500 mg tablet 500 mg PO Q6H PRN (Reason: Pain) RF: 0 multivitamin [Daily Multi-Vitamin] Tablet 1 tab PO DAILY RF: 0 Discharge Orders: Discharge Order (Routine); Ordered 10/30/21 Ordered By: Cristi Stringer Admission Data Admit Date/Time: 10/24/21 16:47 Attending Provider: Cristi Stringer Admit Provider: Clarke Fay Primary Care Provider: Raciel Garsia Other Providers: Clarke Fay Other Interventions: Discharge Summary Assessment (RN) Last Done: 10/30/21 10:44 Coding Level of Care Code D/C DAY MANAGEMENT >30 MINS Diagnoses COVID-19 U07.1 Acute respiratory failure with hypoxia J96.01 Type 2 diabetes mellitus E11.9 KEESHA (acute kidney injury) N17.9 Paroxysmal supraventricular tachycardia I47.1 HTN (hypertension) I10 Hypertension type: essential hypertension Morbid obesity E66.01 DVT prophylaxis Z29.9
== END 2021-10-30 13:23 | disposition home or self-care (01) | DRG 177 ==
LOC: ED 12:58 → SUATTDRO 16:47 → 2S 16:47
DX: N17.9 Acute kidney failure, unspecified; I47.1 Supraventricular tachycardia; J96.01 Acute respiratory failure with hypoxia; Z88.7 Allergy status to serum and vaccine; I10 Essential (primary) hypertension; Z68.41 Body mass index [BMI] 40.0-44.9, adult; E86.0 Dehydration; R73.9 Hyperglycemia, unspecified; E66.01 Morbid (severe) obesity due to excess calories; Z88.8 Allergy status to other drugs, medicaments and biological substances; Z88.2 Allergy status to sulfonamides; J12.82 Pneumonia due to coronavirus disease 2019; Z88.1 Allergy status to other antibiotic agents; Z86.61 Personal history of infections of the central nervous system; U07.1 COVID-19

== ENCOUNTER 2024-01-18 13:49 | Inpatient (IN) ==
[2024-01-18 15:10] LABS: Basophils # (auto) 0.05 K/uL (0.00-0.20); Basophils % (auto) 0.4 %; Eosinophils # (auto) 0.12 K/uL (0.00-0.50); Eosinophils % (auto) 0.9 %; Hemoglobin 13.4 g/dl (12.0-16.0); Immature Granulocytes # (auto) 0.04 K/uL (0.01-0.20); Immature Granulocytes % (auto) 0.3 %; Lymphocytes # (auto) 1.39 K/uL (1.20-3.40); Mean Corpuscular Hemoglobin 30.2 pg (25.0-34.0); Mean Corpuscular Hgb Conc 32.7 g/dL (32.0-36.0); Mean Corpuscular Volume 92.6 fL (80.0-100.0); Mean Platelet Volume 9.5 fL (9.4-12.4); Monocytes # (auto) 0.67 K/uL (0.11-0.59); Monocytes % (auto) 5.3 %; Neutrophils # (auto) 10.41 K/uL (1.40-6.50); Neutrophils % (auto) 82.1 %; Platelet Count 305 K/uL (130-400); RDW Coefficient of Variation 13.2 % (11.5-14.5); RDW Standard Deviation 45.5 fL (36.4-46.3); Red Blood Count 4.43 M/uL (4.20-5.40); White Blood Count 12.68 K/ul (4.8-10.8)
[2024-01-18 15:22] LABS: Albumin Globulin Ratio 1.2 (0.9-2); BUN Creatinine Ratio 25.8 (10-20); Bilirubin,Total 0.6 mg/dl (0.2-1.0); Calcium 9.6 mg/dl (8.6-10.3); Creatinine Clr Calc Pharmacy 61.3 ml/min; Est GFR (African American) 66.2 ml/min; Est GFR (Non-African American) 57.1 ml/min; Globulin 3.3 gm/dl (2.5-4.0); Potassium 4.7 mmol/L (3.5-5.1); Total Protein 7.3 gm/dl (6.0-8.3)
[2024-01-18 15:29] LABS: Troponin I High Sensitivity 10.2 pg/ml (0-14)
[2024-01-18 15:32] LABS: INR 0.9 (0.9-1.1); Partial Thromboplastin Ratio 0.9; Partial Thromboplastin Time 25 Seconds (21-31); Prothrombin Time 10.3 Seconds (9.0-12.0)
[2024-01-18] MEDS: ONDANSETRON INJ 2 MG/ML 2 ML VIAL IV STA (18:35)
[2024-01-18] MEDS: MECLIZINE HCL 25 MG TAB PO STA (18:35)
[2024-01-18] MEDS: SODIUM CHLORIDE 0.9% 1,000 ML IV ONE (18:36)
--- NOTE | 2024-01-18 18:41 | Emergency Department Note ---
Impression & Plan Dizziness, Fatigue ED Provider Note Provider: Lopez Tyler MD DATE OF SERVICE: 01/18/2024 CHIEF COMPLAINT: Dizzy, nauseous, unsteady HISTORY OF PRESENT ILLNESS: Patient is a 73-year-old female history of type 2 diabetes, hypertension presenting here today with sister reporting onset this morning or around her just before 8 AM of some dizziness. Denies any headache or pain. States she feels unsteady. Denies any new numbness or tingling. Denies any weakness or speech issues. States she experienced onset of nausea then but has not thrown up. Denies abdominal pain. Denies chest pain or shortness of breath. No recent fever but has had a bit of a chronic cough on and off for the last several weeks. She believes this is related to allergy symptoms. Has not fallen. Has a little bit lightheaded with the dizziness that is worse with movement. Has not eaten or drinking very much today. [place] well yesterday. Denies any ear ringing or pain. Denies sore throat but maybe a little bit of stiffness of the neck. No fevers reported. PAST MEDICAL HISTORY: As noted above MEDICATIONS: Reviewed home medications SOCIAL HISTORY: Lives by herself PHYSICAL EXAM: GENERAL: alert and oriented in no acute distress on stretcher Head: normocephalic and atraumatic EYES: No injection, discharge or icterus. PERRL, EOMI. NECK: Trachea midline. Supple with good range of motion ENT: Mucous membranes pink and moist. Pharynx without erythema or exudate. TMs clear bilaterally without erythema bulging or purulence noted. LUNGS: Airway patent. No retractions. Breath sounds clear HEART: Regular rate and rhythm. No chest wall tenderness ABDOMEN: Soft and non-tender, without guarding or rebound. SKIN: Acyanotic, warm, dry, without rashes EXTREMITIES: Without swelling, tenderness or deformity NEUROLOGICAL: No aphasia. No facial droop or slurred speech. Normal strength and tone in the extremities. Sensation to gross touch normal. Ambulatory with some assistance that she is a bit unsteady EK bpm sinus rhythm with right bundle branch block and left axis. No acute ST segment elevation with a QTc of 457 and nonspecific T wave inversions. CONTINUOUS CARDIAC MONITORING: was ordered and showed a heart rate of 70s-90s bpm in normal sinus rhythm Patient's laboratory studies and imaging reviewed. Differential includes Benign positional vertigo, dehydration, hypovolemia, anemia, tumor, infection, hypoglycemia, electrolyte abnormalities, cardiac sources, intracerebral event, toxicologic, neurologic, as well as other pathologies. IMPRESSION/MEDICAL DECISION MAKING: Patient well-appearing. Afebrile. Not hypoxic. No significant focal deficits but a bit unsteady on her feet and symptoms are provokable with change in position of movement. Given a bit IV fluid as she has not had much in today. The nausea medicine was meclizine given. No evidence of mastoiditis or acute otitis media on exam. Blood work completed from triage with nonspecific slight leukocytosis of 12.6. No anemia. No significant electrolyte abnormalities signs of renal dysfunction. No signs of LFT abnormalities with a normal troponin. EKG reviewed without significant arrhythmia. Will complete a head CT given her age and complaint just to exclude an occult intracranial abnormality or bleeding. There is been no significant trauma. She does not appear meningitic and has good range of motion of the neck. Again symptoms are provokable with movement and feel it is less likely represent acute CVA. Declined any viral testing at this time states she tested negative for COVID recently. Believe likely more of a peripheral vertigo process. CT report from radiology without acute intracranial bleed or mass effect reported. Patient on reassessment at bedside with sister as now more drowsy. Sleeping initially and attempt to awaken. She also weighed occasionally has a bit of tremor but barely opens eyes. Will answer some questions but currently having a conversation as before. Given her drowsiness at this time seems more than expected from just a dose of meclizine. Blood sugar rechecked without significant hypoglycemia noted. Discussed with her and her sister given her dizziness workup has been somewhat reassuring; however with her significant drowsiness now I do not feel that she can safely be discharged. Hospitalist team was contacted to bring her in for monitoring given her dizziness and now drowsiness and ambulatory dysfunction DIAGNOSIS: Dizziness, drowsy DISPOSITION: Hospitalist will evaluate Patient was agreeable with this plan. Past Med/Surg History Medical History Acute respiratory failure with hypoxia DVT prophylaxis KEESHA (acute kidney injury) Hypoxia Cellulitis Thrombocytopenia Surgical History History of incision and drainage S/P total abdominal hysterectomy and bilateral salpingo-oophorectomy S/P tonsillectomy History of laparoscopic cholecystectomy Family History Father Myocardial infarction Sudden Mother Diabetes Hypertension Stroke Sister Breast cancer Cancer Denies family history of Ovarian cancer Prostate cancer Dyslipidemia Kidney disease Lung cancer Colorectal cancer Asthma Social History (Updated 11/22/23 @ 14:20 by Rhona Cortes LPN) Smoking Status: Never smoker Second Hand Exposure: No; Do You Dip or Chew Tobacco: No; Hx Alcohol Use: No Hx Substance Use: No Preferred Language: Mosotho Communication Ability: Effective Motor Vehicle Escort Driver Required: No Beliefs That Will Affect Care: None marital status: Current Living Situation: Alone current occupational status: retired How many Children do You have: 0 Other Information That Helps Us Care for You: No Feels Safe at Home: Yes Safety Concerns: Feels Safe At This Time Childhood Exposure to Second-Hand Smoke: Yes Diet: diabetic caffeine: Yes Dental Care, Regularly: Yes Physical Activity Frequency: 5-6 Times per Week Seatbelt Use: always Sunscreen Use: Yes Assistive Devices: Hospital Bed and Walker Allergies Allergies Allergy/AdvReac Type Severity Reaction Status Date / Time erythromycin base Allergy Severe ANAPHYLAXIS Verified 01/18/24 19:22 metformin Allergy Severe GENERALIZED Verified 01/18/24 19:22 RASH AND ITCHING Penicillins Allergy Severe ANAPHYLAXIS, Verified 01/18/24 19:22 RASH cefaclor Allergy Intermediate RASH Verified 01/18/24 19:22 tetanus toxoid, adsorbed Allergy Intermediate REDNESS, Verified 01/18/24 19:22 SWELLING AT INSERTION SITE Quinolones Allergy Mild RASH Verified 01/18/24 19:22 clindamycin Allergy Unknown Unknown Verified 01/18/24 19:22 Influenza Virus Vaccines Allergy Unknown Unknown Verified 01/18/24 19:22 Sulfa (Sulfonamide Allergy Unknown Unknown Verified 01/18/24 19:22 Antibiotics) tetracycline Allergy Unknown Unknown Verified 01/18/24 19:22 Tetracyclines Allergy Unknown MINOCYCLINE Verified 01/18/24 19:22 /DOXY prednisone AdvReac Intermediate PSYCHOSIS Verified 01/18/24 19:22 vancomycin AdvReac Intermediate RED MAN Verified 01/18/24 19:22 SYNDROME - RASH, WBC DECREASED Home Meds Home Medications Medication Instructions Recorded Confirmed loratadine 10 mg capsule 10 mg PO DAILY 06/12/19 01/18/24 multivitamin (Daily Multi-Vitamin 1 tab PO DAILY 09/13/20 01/18/24 tablet) acetaminophen 500 mg tablet 1,000 mg PO Q6H PRN Pain 12/27/20 01/18/24 (Tylenol Extra Strength) Previous Rx's Medication Instructions Recorded lancets 33 gauge (OneTouch Delica #100 ea 09/06/22 Plus Lancet) blood sugar diagnostic (OneTouch #100 ea 05/10/23 Verio test strips) hydrochlorothiazide 25 mg tablet 25 mg PO DAILY #90 tabs 11/22/23 insulin glargine 100 unit/mL (3 26 unit (0.26 mL) subcut DAILY #15 11/22/23 mL) subcutaneous pen (Lantus mL Solostar U-100 Insulin) pen needle, diabetic 31 gauge x #100 ea 11/22/23/" (Comfort EZ Pen [place]) spironolactone 25 mg tablet 25 mg PO DAILY #90 tabs 11/22/23 olmesartan 40 mg tablet 40 mg PO DAILY #90 tabs 12/26/23 Results & Data (ED) Vital Signs Vital Signs - 24 hr 01/18/24 13:50 01/18/24 13:50 01/18/24 16:11 Temperature 36.6 C Temperature Source Temporal Artery Scan Pulse Rate 77 Pulse Rate [Right Finger] 80 Respiratory Rate 18 16 Respiratory Effort / Characteristics Non-Labored Respiratory Depth Normal Blood Pressure 164/76 H Blood Pressure [Right Arm] 149/82 H Blood Pressure Mean 105 Blood Pressure Mean [Right Arm] 104 Pulse Oximetry 99 97 Oxygen Delivery Method Room Air Room Air Room Air Sepsis Recent Fever Within 48 Hours No Sepsis New/Unexplained Change in Mental Status N/A Sepsis Action Taken by Nursing No Action Required 01/18/24 17:42 01/18/24 19:13 01/18/24 21:00 Temperature Temperature Source Pulse Rate 83 Pulse Rate [Right Finger] 88 85 Respiratory Rate 15 19 Respiratory Effort / Characteristics Respiratory Depth Blood Pressure Blood Pressure [Right Arm] 163/98 H 179/89 H Blood Pressure Mean Blood Pressure Mean [Right Arm] 119 119 Pulse Oximetry 94 94 Oxygen Delivery Method Room Air Room Air Sepsis Recent Fever Within 48 Hours Sepsis New/Unexplained Change in Mental Status Sepsis Action Taken by Nursing Laboratory Data 01/18/24 14:44 01/18/24 14:44 Lab Results 01/18/24 01/18/24 01/18/24 Range/Units 14:44 17:23 21:03 WBC 12.68 H (4.8-10.8) K/ul RBC 4.43 (4.20-5.40) M/uL Hgb 13.4 (12.0-16.0) g/dl Hct 41.0 (37.0-47.0) % MCV 92.6 (80.0-100.0) fL MCH 30.2 (25.0-34.0) pg MCHC 32.7 (32.0-36.0) g/dL RDW Std Deviation 45.5 (36.4-46.3) fL RDW Coeff of Jessica 13.2 (11.5-14.5) % Plt Count 305 (130-400) K/uL MPV 9.5 (9.4-12.4) fL Immature Gran % (Auto) 0.3 % Neut % (Auto) 82.1 % Lymph % (Auto) 11.0 % [place] % (Auto) 5.3 % Eos % (Auto) 0.9 % Baso % (Auto) 0.4 % Neut # (Auto) 10.41 H (1.40-6.50) K/uL Lymph # (Auto) 1.39 (1.20-3.40) K/uL [place] # (Auto) 0.67 H (0.11-0.59) K/uL Eos # (Auto) 0.12 (0.00-0.50) K/uL Baso # (Auto) 0.05 (0.00-0.20) K/uL Immature Gran # (Auto) 0.04 (0.01-0.20) K/uL PT 10.3 (9.0-12.0) Seconds INR 0.9 (0.9-1.1) APTT 25 (21-31) Seconds PTT Ratio 0.9 Sodium 137 (136-145) mmol/L Potassium 4.7 (3.5-5.1) mmol/L Chloride 102 (98-107) mmol/L Carbon Dioxide 28 (21-32) mmol/L Anion Gap 7 (3-11) BUN 25 H (6-23) mg/dl Creatinine 0.97 (0.6-1.2) mg/dl Est Cr Clr Drug Dosing 61.3 ml/min Est GFR ( Amer) 66.2 ml/min Est GFR (Non-Af Amer) 57.1 ml/min BUN/Creatinine Ratio 25.8 H (10-20) Glucose 169 H (70-99(Fasting)) mg/dl POC Glucose 135 H 120 H (70-99) mg/dl Calcium 9.6 (8.6-10.3) mg/dl Total Bilirubin 0.6 (0.2-1.0) mg/dl AST 12 L (13-39) U/L ALT 10 (7-52) U/L Alkaline Phosphatase 89 (34-104) U/L Troponin I High Sens 10.2 (0-14) pg/ml Total Protein 7.3 (6.0-8.3) gm/dl Albumin 4.0 (3.4-5.0) gm/dl Globulin 3.3 (2.5-4.0) gm/dl Albumin/Globulin Ratio 1.2 (0.9-2) Administered Medications Lactated Ringer's (Lr) 1,000 mls @ 125 mls/hr IV .Q8H RIMA Stop: 01/19/24 07:52 Last Admin: 01/19/24 00:23 Dose: 125 mls/hr Documented By: TKB Discontinued Medications Sodium Chloride (Nss) 1,000 mls @ 999 mls/hr IV .Q1H1M ONE Stop: 01/18/24 19:13 Last Infusion: 01/18/24 20:47 Dose: Infused Documented By: Admin: 01/18/24 18:36 Dose: 999 mls/hr Documented By: ACC Meclizine HCl (Meclizine Hcl 25 Mg Tab) 25 mg PO NOW STA Stop: 01/18/24 18:14 Last Admin: 01/18/24 18:35 Dose: 25 mg Documented By: ACC Ondansetron HCl (Ondansetron Inj 2 Mg/Ml 2 Ml Vial) 4 mg IV NOW STA Stop: 01/18/24 18:14 Last Admin: 01/18/24 18:35 Dose: 4 mg Documented By: ACC Imaging Data Radiologist's Impression: Head CT 01/18/24 18:13 Exam(s): CT HEAD Without Contrast EXAM: CT Head Without Intravenous Contrast CLINICAL HISTORY: Reason for exam: dizzy, nausea. TECHNIQUE: Axial computed tomography images of the head/brain without intravenous contrast. CTDI is 36.05 mGy and DLP is 625.8 mGy-cm. Automated exposure control was utilized for the study. A dose lowering technique was utilized adhering to the principles of ALARA. COMPARISON: 09/27/23 FINDINGS: Limitations: Motion. Brain: No acute intracranial hemorrhage, mass-effect, or parenchymal edema. Richards-white matter differentiation maintained. Age-related cerebral volume loss. Patchy white matter hypodensities compatible with mild chronic small vessel ischemic disease. Ventricles: Unremarkable. No hydrocephalus. Bones/joints: Unremarkable. No acute fracture. Soft tissues: Unremarkable. Sinuses: Stable large mucous retention cyst right sphenoid sinus. Paranasal sinuses otherwise clear. Mastoid air cells: Unremarkable as visualized. No mastoid effusion. IMPRESSION: No acute intracranial process. Electronically signed by: Karrie Castillo M.D. 01/18/24 20:20 PM Discharge Plan Visit Data Chief Complaint: Dizziness Stated Complaint: DIZZY, NAUSEA ED Provider: Lopez Tyler Discharge Problem: Dizziness, Fatigue Patient Disposition: Being Evaluated by Hospitalist Discharge Instructions Interventions: ED Discharge Assessment Last Done: 01/18/24 23:02 Discharge Problem: Fatigue Qualifiers: Fatigue type: unspecified Qualified Code(s): R53.83 - Other fatigue
--- NOTE | 2024-01-18 20:21 | CT Scan Report ---
Exam(s): CT HEAD Without Contrast EXAM: CT Head Without Intravenous Contrast CLINICAL HISTORY: Reason for exam: dizzy, nausea. TECHNIQUE: Axial computed tomography images of the head/brain without intravenous contrast. CTDI is 36.05 mGy and DLP is 625.8 mGy-cm. Automated exposure control was utilized for the study. A dose lowering technique was utilized adhering to the principles of ALARA. COMPARISON: 09/27/23 FINDINGS: Limitations: Motion. Brain: No acute intracranial hemorrhage, mass-effect, or parenchymal edema. Richards-white matter differentiation maintained. Age-related cerebral volume loss. Patchy white matter hypodensities compatible with mild chronic small vessel ischemic disease. Ventricles: Unremarkable. No hydrocephalus. Bones/joints: Unremarkable. No acute fracture. Soft tissues: Unremarkable. Sinuses: Stable large mucous retention cyst right sphenoid sinus. Paranasal sinuses otherwise clear. Mastoid air cells: Unremarkable as visualized. No mastoid effusion. IMPRESSION: No acute intracranial process. Electronically signed by: Karrie Castillo M.D. 01/18/24 20:20 PM
--- NOTE | 2024-01-18 22:25 | History & Physical Report ---
Date of Service January 18, 2024 Assessment & Plan (1) Dizziness: Plan: -EKG showed sinus rhythm with right bundle branch block. -CBC with a slight leukocytosis. -CMP unremarkable, head CT negative. -Given Zofran, meclizine, and a bolus of NSS in the ED. Symptoms improved, though patient became very lethargic. -Meclizine 12.5 mg as needed added -Most likely BPPV -Will monitor overnight, PT/OT ordered. -Anticipate discharge tomorrow. (2) Type 2 diabetes mellitus: Plan: -Patient's home regimen held on admission -Continue BSG checks, sliding-scale insulin, hypoglycemic protocol (3) Paroxysmal supraventricular tachycardia: Plan: -EKG stable at time of admission. -Will continue home medication, no need to monitor on telemetry at this time. (4) HTN (hypertension): Plan: -Continue home medications. Plan Fluids: LR Nutrition: DM 2 Code status: DNR DVT ppx: None, anticipate short stay PT/OT: Yes Dispo: med/surg History of Present Illness Chief Complaint: Dizziness Primary Care Provider: Raciel Garsia MD Patient is a 73-year-old female with past medical history of type 2 diabetes, hypertension, asthma, paroxysmal supraventricular tachycardia, and morbid obesity who presents to the hospital with dizziness that started this morning. Patient woke up around 7 AM, went to eat something, then around 9 AM started to feel dizzy as well as nauseous. She did have some dry heaving but no vomiting. States that she felt like the room was spinning and that when she closes her eyes it continued. The dizziness got worse with movement. She denies any falls. She denies any abdominal pain. Denies any chest pain, shortness of breath, recent fever. Does state that she has been having some allergy symptoms recently with some cough but no recent illness. States that she has never had this before. Denies any ear ringing. Allergies Allergy/AdvReac Type Severity Reaction Status Date / Time erythromycin base Allergy Severe ANAPHYLAXIS Verified 01/18/24 19:22 metformin Allergy Severe GENERALIZED Verified 01/18/24 19:22 RASH AND ITCHING Penicillins Allergy Severe ANAPHYLAXIS, Verified 01/18/24 19:22 RASH cefaclor Allergy Intermediate RASH Verified 01/18/24 19:22 tetanus toxoid, adsorbed Allergy Intermediate REDNESS, Verified 01/18/24 19:22 SWELLING AT INSERTION SITE Quinolones Allergy Mild RASH Verified 01/18/24 19:22 clindamycin Allergy Unknown Unknown Verified 01/18/24 19:22 Influenza Virus Vaccines Allergy Unknown Unknown Verified 01/18/24 19:22 Sulfa (Sulfonamide Allergy Unknown Unknown Verified 01/18/24 19:22 Antibiotics) tetracycline Allergy Unknown Unknown Verified 01/18/24 19:22 Tetracyclines Allergy Unknown MINOCYCLINE Verified 01/18/24 19:22 /DOXY prednisone AdvReac Intermediate PSYCHOSIS Verified 01/18/24 19:22 vancomycin AdvReac Intermediate RED MAN Verified 01/18/24 19:22 SYNDROME - RASH, WBC DECREASED Home Medications Medication Instructions Recorded Confirmed Type loratadine 10 mg capsule 10 mg PO DAILY 06/12/19 01/18/24 History multivitamin (Daily Multi-Vitamin 1 tab PO DAILY 09/13/20 01/18/24 History tablet) acetaminophen 500 mg tablet 1,000 mg PO Q6H PRN Pain 12/27/20 01/18/24 History (Tylenol Extra Strength) lancets 33 gauge (OneTouch Delica #100 ea 09/06/22 12/10/23 Rx Plus Lancet) blood sugar diagnostic (OneTouch #100 ea 05/10/23 12/10/23 Rx Verio test strips) hydrochlorothiazide 25 mg tablet 25 mg PO DAILY #90 tabs 11/22/23 01/18/24 Rx insulin glargine 100 unit/mL (3 26 unit (0.26 mL) subcut DAILY #15 11/22/23 01/18/24 Rx mL) subcutaneous pen (Lantus mL Solostar U-100 Insulin) pen needle, diabetic 31 gauge x #100 ea 11/22/23 12/10/23 Rx 1/4" (Comfort EZ Pen [place]) spironolactone 25 mg tablet 25 mg PO DAILY #90 tabs 11/22/23 01/18/24 Rx olmesartan 40 mg tablet 40 mg PO DAILY #90 tabs 12/26/23 01/18/24 Rx Past Med/Surg History Medical History (Updated 01/19/24 @ 13:59 by Isabel Raya PA-C) Acute respiratory failure with hypoxia DVT prophylaxis KEESHA (acute kidney injury) Hypoxia Cellulitis Thrombocytopenia Surgical History History of incision and drainage S/P total abdominal hysterectomy and bilateral salpingo-oophorectomy S/P tonsillectomy History of laparoscopic cholecystectomy Family History Father Myocardial infarction Sudden Mother Diabetes Hypertension Stroke Sister Breast cancer Cancer Denies family history of Ovarian cancer Prostate cancer Dyslipidemia Kidney disease Lung cancer Colorectal cancer Asthma Social History (Updated 11/22/23 @ 14:20 by Rhona Cortes LPN) Smoking Status: Never smoker Second Hand Exposure: No; Do You Dip or Chew Tobacco: No; Hx Alcohol Use: No Hx Substance Use: No Preferred Language: Citizen Of [place] Communication Ability: Effective Receiver Bulk System Required: No Beliefs That Will Affect Care: None marital status: Current Living Situation: Alone current occupational status: retired How many Children do You have: 0 Other Information That Helps Us Care for You: No Feels Safe at Home: Yes Safety Concerns: Feels Safe At This Time Childhood Exposure to Second-Hand Smoke: Yes Diet: diabetic caffeine: Yes Dental Care, Regularly: Yes Physical Activity Frequency: 5-6 Times per Week Seatbelt Use: always Sunscreen Use: Yes Assistive Devices: Hospital Bed and Walker Review of Systems Review of Systems: All systems reviewed & are unremarkable except as noted in Subjective Physical Exam Physical Exam: Constitutional: well-appearing, no acute distress HEENT: NCAT, no conjunctival injection CV: regular rhythm, no murmur appreciated, extremities well-perfused, no LE edema Resp: CTABL, no wheezes/rales/rhonchi appreciated, no increased work of breathing GI: soft, nondistended, nontender, BS normoactive MSK: no gross deformities appreciated Skin: warm, dry, no rash appreciated Neuro: alert, oriented, no focal neurologic deficit appreciated Results & Data Results & Data Vital Signs (Past 12 Hours) Vital Signs Temp Pulse Pulse Resp BP BP Pulse Ox 01/18/24 21:00 85 19 179/89 H 94 01/18/24 19:13 88 15 163/98 H 94 01/18/24 17:42 83 01/18/24 16:11 80 16 149/82 H 97 01/18/24 13:50 01/18/24 13:50 36.6 C 77 18 164/76 H 99 O2 Del Method 01/18/24 21:00 Room Air 01/18/24 19:13 Room Air 01/18/24 17:42 01/18/24 16:11 Room Air 01/18/24 13:50 Room Air 01/18/24 13:50 Room Air Supervising Physician Co-Signing Physician Notes Attending addendum: I have physically seen this patient, have supervised the medical residents activities, and agree with the H&P unless as otherwise noted. Assessment and Plan: Dizziness/fatigue- Symptoms improved with ED treatment of Zofran, meclizine and NSS, however, patient is a, lethargic Continue meclizine 12.5 mg daily as needed Monitor for arrhythmia overnight Diabetes mellitus-hold home regimen Placed on Accu-Cheks with NovoLog SSI PSVT/hypertension- Continue home losartan, spironolactone. Hold HCTZ Remaining orders and notations as noted (2) Type 2 diabetes mellitus Diabetes mellitus complication status: without complication Diabetes mellitus intermediate manager insulin use: with senior care use Qualified Code(s): E11.9 - Type 2 diabetes mellitus without complications; Z79.4 - assisted (current) use of insulin (4) HTN (hypertension) Hypertension type: essential hypertension Qualified Code(s): I10 - Essential (primary) hypertension
[2024-01-18] MEDS ORDERED: GLUCOSE 40% GEL 15 GM TUBE PO PRN (23:53)
[2024-01-18] MEDS ORDERED: DEXTROSE 50% 50 ML SYRINGE IV PRN (23:53)
[2024-01-18] MEDS ORDERED: GLUCAGON FOR INJ 1 MG VIAL SQ PRN (23:53)
[2024-01-18] MEDS ORDERED: MELATONIN 3 MG TAB PO PRN (23:53)
[2024-01-18] MEDS ORDERED: GLUCOSE 10 TAB/TUBE PO PRN (23:53)
[2024-01-19] MEDS: LACTATED RINGER'S 1,000 ML IV SCH (00:23)
[2024-01-19] MEDS: ACETAMINOPHEN 325 MG TAB PO PRN (03:06)
--- NOTE | 2024-01-19 06:08 | Electrocardiogram Report ---
Test Reason : Blood Pressure : / mmHG Vent. Rate : 074 BPM Atrial Rate : 074 BPM P-R Int : 156 ms QRS Dur : 136 ms QT Int : 412 ms P-R-T Axes : 013 -40 -21 degrees QTc Int : 457 ms Sinus rhythm Left axis deviation Right bundle branch block Abnormal ECG When compared with ECG of 24-APR-2023 14:54, Premature ventricular complexes are no longer Present Nonspecific T wave abnormality now evident in Anterolateral leads Confirmed by Raciel Jordan ([id number]) on 01/19/2024 6:08:03 AM Referred By: Confirmed By:Sergio Jordan
[2024-01-19 06:22] LABS: BUN Creatinine Ratio 23.1 (10-20); Calcium 8.8 mg/dl (8.6-10.3); Creatinine Clr Calc Pharmacy 62.5 ml/min; Est GFR (African American) 71.5 ml/min; Est GFR (Non-African American) 61.7 ml/min
[2024-01-19 06:30] LABS: Basophils # (auto) 0.06 K/uL (0.00-0.20); Basophils % (auto) 0.5 %; Eosinophils # (auto) 0.26 K/uL (0.00-0.50); Eosinophils % (auto) 2.2 %; Hematocrit (blood only) 34.9 % (37.0-47.0); Hemoglobin 11.3 g/dl (12.0-16.0); Immature Granulocytes # (auto) 0.04 K/uL (0.01-0.20); Immature Granulocytes % (auto) 0.3 %; Lymphocytes # (auto) 2.47 K/uL (1.20-3.40); Lymphocytes % (auto) 20.6 %; Mean Corpuscular Hemoglobin 30.1 pg (25.0-34.0); Mean Corpuscular Hgb Conc 32.4 g/dL (32.0-36.0); Mean Corpuscular Volume 93.1 fL (80.0-100.0); Mean Platelet Volume 9.4 fL (9.4-12.4); Monocytes # (auto) 1.04 K/uL (0.11-0.59); Monocytes % (auto) 8.7 %; Neutrophils # (auto) 8.14 K/uL (1.40-6.50); Neutrophils % (auto) 67.7 %; Platelet Count 240 K/uL (130-400); RDW Coefficient of Variation 13.2 % (11.5-14.5); RDW Standard Deviation 44.9 fL (36.4-46.3); Red Blood Count 3.75 M/uL (4.20-5.40); White Blood Count 12.01 K/ul (4.8-10.8)
[2024-01-19 07:44] LABS: Estimated Average Glucose 163 mg/dl; Hemoglobin A1C 7.3 % (4.5-5.6)
--- NOTE | 2024-01-19 08:24 | Hospitalist Progress Note ---
Date of Service January 19, 2024 Assessment & Plan (1) Cellulitis: Plan: 73yo female presented to ER with acute onset of dizziness when attempting to go to the bathroom to get up with associated nausea but no vomiting. Had been eating/drinking well up until 01/17 when symptoms started In ER, given 1L IVF, zofran and meclizine and was too sedate to discharge home and decision to admit/monitoring with PT/OT evals and discharge home vs rehab HOWEVER upon evaluation of patient, she had bandage covering area to her LEFT LATERAL LOWER CALF, and reports she was at a sporting event this past weekend and bit by many mosquitos and had been told to treat with vasoline and cover with bandage. CT head on admit negative for acute process given complaints of dizziness. Patient w/ leukocytosis on admit to 12.6k, repeat 12k. Denies feeling like she has a fever. No other "mosquito bites" observed. ?spider bite given appearance Procal added, 0.03 Blood cultures obtained prior to starting abx Daptomycin IV for SSTI, monitor for any reaction given her hx allergies/react ions RN to sharif area of erythema for monitoring Cx obtained w/ nursing present today -- monitor final (GS w/ many WBC, few gram positive cocci) Elevation of leg Pain control, antiemetics as needed Wound RN consulted Check Lyme for completeness - negative Check Venous Doppler to r/o DVT *Of note, provided 1L IVF on admission and had elevated BUN/Cr, suspect aspect dehydration (as well as infection) leading to her presentation and placed orders for spirnolactone/HCTZ/olmesartan on hold for now -- BP116/68 this afternoon (reports takes these medications mainly for BP and not LE swelling and suspect not best medications for her BP control if not keeping up with adequate hydration) Monitor labs/exam on repeat PT/OT consults pending (2) Dizziness: Plan: EKG showed sinus rhythm with right bundle branch block. Hx paroxysmal atrial tachycardia. No hypoglycemia on admission CT head negative for acute intracranial process, did note mucosal thickening of sinuses on imaging, on loratadine daily for allergies Meclizine available prn if needed as suspected BPPV on admission, can attempt Elvin maneuvers w/ therapy consults Zofran prn Check UA/orthostatics, hold diuretics for now CXR w/o acute process No CP reported but if any reports or palpitations given her hx paroxysmal atrial tachycardia would move to monitored bed (3) Type 2 diabetes mellitus: Plan: A1c 7.3 on 26u glargine daily Home regimen placed on hold on admission and SSI ordered given poor PO intake (only 4 u SSI utilized thus far) POC most recently 131 and will monitor on SSI (4) Paroxysmal supraventricular tachycardia: Plan: EKG w/ NS, LAD, RBBB (RBBB is NOT new compared to prior EKGs). Followed by Dr Carvajal outpatient home diuretics on hold as above, not on any rate controlling agents monitor for need for monitored bed Will place order for device interrogation for her loop recorder to see if she maybe had any further SVT yesterday morning leading to her symptoms. message to cards if any abn finding/move to monitored bed (5) HTN (hypertension): Plan: As above, holding diuretics/olmesartan given stable BP and HTN on admission, improved w/ hydration and suspect some dizziness from dehydration on admission monitor to resume meds as needed, would start w/ ARB and then can resume diuretics if PO intake improved/stable (6) Bug bite: Plan: as above, reported as mosquitos. Doppler obtained to r/o DVT given calf pain (pulses palpable) abx as above and continued monitoring, wound RN . monitor erythema , marked by nursing today (7) Leukocytosis: Plan: as above, suspect 2nd to her LLE infection/cellulitis UA added for completeness prior to exam, does not appear infected. CXR w/o pneumonia Monitor on repeat CBC Plan DVT proph: none ordered on admission, will add lovenox SQ while inpatient given infection Dispo: PT/OT consults ordered but ongoing inpatient stay due to concerns for infection. Monitor on repeat (patient anxious to go home) and hopefully if improvement on exam/pending cultures consideration to dc on PO to complete course but will need further discussed given her allergy history (unable to use bactrim or clindamycin, ?linezolid if +mrsa on swab cx?) Admission and Anticipated Discharge Date Admission Date: January 18, 2024 Supervising Physician Co-Signing Physician Notes The patient was not seen by me. The chart was reviewed. Case discussed with COLLEEN Suárez. Agree with assessment and plan Subjective Evaluated this morning, resting in bed. Reports got up to go to the bathroom and had a little dizziness associated with nausea, medicated with zofran. No CP/SOB reported, on room air. Not much of an appetite, but was good up until yesterday Of note, she was at a ball game this past weekend and there were tons of mosquitos and she sustained bites to her legs -- on the LEFT lateral leg has quite quarter size lesion covered with bandage with purulent drainage/surrounding erythema. Lyme testing/blood cultures added but discussed likely need for antibiotics but will discuss w/ supervising provider given her extensive allergy list, reports hx marilee w/ vancomycin in the past but most of her allergies include rash. Physical Exam Physical Exam: Constitutional: 73yo female chronically ill appearing, laying in bed, NAD but anxious appearing Head atraumatic, normocephalic, mm slightly dry, trachea midline Resp: even/unlabored no w/c/r, on room air 94% CV: RRR, no significant m/r/g, no pitting edema, +calf tenderness reported on her LEFT leg, pulses palpable (see below for skin findings) while pain on her left LE, does appear to have slight increased calf diameter on the right compared to the left GI: +BS, soft/obese, nontender : no [place] MSK/Neuro: nonfocal, answering questions/no slurred speech, no confusion Psych: AOx3, fatigued appearing Skin: LLE -- bandage removed, quarter size lesion w/ surrounding cellulitis/wamrth, scant purulant/malodorous drainage Results & Data Results & Data Vital Signs (Past 12 Hours) Vital Signs Temp Pulse Resp BP Pulse Ox Pulse Ox O2 Del Method 01/19/24 07:42 36.7 C 80 20 116/68 94 Room Air 01/18/24 23:30 36.5 C 89 16 151/77 H 94 Room Air 01/18/24 23:30 94 01/18/24 23:30 94 Room Air 01/18/24 22:59 150/93 H 01/18/24 21:00 85 19 179/89 H 94 Room Air O2 Del Method 01/19/24 07:42 01/18/24 23:30 01/18/24 23:30 Room Air 01/18/24 23:30 01/18/24 22:59 01/18/24 21:00 Laboratory Results 01/19/24 01/19/24 01/18/24 Range/Units 07:43 05:47 23:41 WBC 12.01 H (4.8-10.8) K/ul RBC 3.75 L (4.20-5.40) M/uL Hgb 11.3 L (12.0-16.0) g/dl Hct 34.9 L (37.0-47.0) % MCV 93.1 (80.0-100.0) fL MCH 30.1 (25.0-34.0) pg MCHC 32.4 (32.0-36.0) g/dL RDW Std Deviation 44.9 (36.4-46.3) fL RDW Coeff of Jessica 13.2 (11.5-14.5) % Plt Count 240 (130-400) K/uL MPV 9.4 (9.4-12.4) fL Immature Gran % (Auto) 0.3 % Neut % (Auto) 67.7 % Lymph % (Auto) 20.6 % Treasure % (Auto) 8.7 % Eos % (Auto) 2.2 % Baso % (Auto) 0.5 % Neut # (Auto) 8.14 H (1.40-6.50) K/uL Lymph # (Auto) 2.47 (1.20-3.40) K/uL Treasure # (Auto) 1.04 H (0.11-0.59) K/uL Eos # (Auto) 0.26 (0.00-0.50) K/uL Baso # (Auto) 0.06 (0.00-0.20) K/uL Immature Gran # (Auto) 0.04 (0.01-0.20) K/uL PT (9.0-12.0) Seconds INR (0.9-1.1) APTT (21-31) Seconds PTT Ratio Sodium 139 (136-145) mmol/L Potassium 4.0 (3.5-5.1) mmol/L Chloride 107 (98-107) mmol/L Carbon Dioxide 28 (21-32) mmol/L Anion Gap 4 (3-11) BUN 21 (6-23) mg/dl Creatinine 0.91 (0.6-1.2) mg/dl Est Cr Clr Drug Dosing 62.5 ml/min Est GFR ( Amer) 71.5 ml/min Est GFR (Non-Af Amer) 61.7 ml/min BUN/Creatinine Ratio 23.1 H (10-20) Glucose 94 (70-99(Fasting)) mg/dl POC Glucose 92 115 H (70-99) mg/dl Estimat Average Glucose 163 mg/dl Hemoglobin A1c 7.3 H (4.5-5.6) % Calcium 8.8 (8.6-10.3) mg/dl Total Bilirubin (0.2-1.0) mg/dl AST (13-39) U/L ALT (7-52) U/L Alkaline Phosphatase (34-104) U/L Troponin I High Sens (0-14) pg/ml Total Protein (6.0-8.3) gm/dl Albumin (3.4-5.0) gm/dl Globulin (2.5-4.0) gm/dl Albumin/Globulin Ratio (0.9-2) 01/18/24 01/18/24 01/18/24 Range/Units 21:03 17:23 14:44 WBC 12.68 H (4.8-10.8) K/ul RBC 4.43 (4.20-5.40) M/uL Hgb 13.4 (12.0-16.0) g/dl Hct 41.0 (37.0-47.0) % MCV 92.6 (80.0-100.0) fL MCH 30.2 (25.0-34.0) pg MCHC 32.7 (32.0-36.0) g/dL RDW Std Deviation 45.5 (36.4-46.3) fL RDW Coeff of Jessica 13.2 (11.5-14.5) % Plt Count 305 (130-400) K/uL MPV 9.5 (9.4-12.4) fL Immature Gran % (Auto) 0.3 % Neut % (Auto) 82.1 % Lymph % (Auto) 11.0 % Treasure % (Auto) 5.3 % Eos % (Auto) 0.9 % Baso % (Auto) 0.4 % Neut # (Auto) 10.41 H (1.40-6.50) K/uL Lymph # (Auto) 1.39 (1.20-3.40) K/uL Treasure # (Auto) 0.67 H (0.11-0.59) K/uL Eos # (Auto) 0.12 (0.00-0.50) K/uL Baso # (Auto) 0.05 (0.00-0.20) K/uL Immature Gran # (Auto) 0.04 (0.01-0.20) K/uL PT 10.3 (9.0-12.0) Seconds INR 0.9 (0.9-1.1) APTT 25 (21-31) Seconds PTT Ratio 0.9 Sodium 137 (136-145) mmol/L Potassium 4.7 (3.5-5.1) mmol/L Chloride 102 (98-107) mmol/L Carbon Dioxide 28 (21-32) mmol/L Anion Gap 7 (3-11) BUN 25 H (6-23) mg/dl Creatinine 0.97 (0.6-1.2) mg/dl Est Cr Clr Drug Dosing 61.3 ml/min Est GFR ( Amer) 66.2 ml/min Est GFR (Non-Af Amer) 57.1 ml/min BUN/Creatinine Ratio 25.8 H (10-20) Glucose 169 H (70-99(Fasting)) mg/dl POC Glucose 120 H 135 H (70-99) mg/dl Estimat Average Glucose mg/dl Hemoglobin A1c (4.5-5.6) % Calcium 9.6 (8.6-10.3) mg/dl Total Bilirubin 0.6 (0.2-1.0) mg/dl AST 12 L (13-39) U/L ALT 10 (7-52) U/L Alkaline Phosphatase 89 (34-104) U/L Troponin I High Sens 10.2 (0-14) pg/ml Total Protein 7.3 (6.0-8.3) gm/dl Albumin 4.0 (3.4-5.0) gm/dl Globulin 3.3 (2.5-4.0) gm/dl Albumin/Globulin Ratio 1.2 (0.9-2) Diagnostic Findings Head CT 01/18/24 18:13 Exam(s): CT HEAD Without Contrast EXAM: CT Head Without Intravenous Contrast CLINICAL HISTORY: Reason for exam: dizzy, nausea. TECHNIQUE: Axial computed tomography images of the head/brain without intravenous contrast. CTDI is 36.05 mGy and DLP is 625.8 mGy-cm. Automated exposure control was utilized for the study. A dose lowering technique was utilized adhering to the principles of ALARA. COMPARISON: 09/27/23 FINDINGS: Limitations: Motion. Brain: No acute intracranial hemorrhage, mass-effect, or parenchymal edema. Richards-white matter differentiation maintained. Age-related cerebral volume loss. Patchy white matter hypodensities compatible with mild chronic small vessel ischemic disease. Ventricles: Unremarkable. No hydrocephalus. Bones/joints: Unremarkable. No acute fracture. Soft tissues: Unremarkable. Sinuses: Stable large mucous retention cyst right sphenoid sinus. Paranasal sinuses otherwise clear. Mastoid air cells: Unremarkable as visualized. No mastoid effusion. IMPRESSION: No acute intracranial process. Electronically signed by: Karrie Castillo M.D. 01/18/24 20:20 PM PG Care Time/CCT Total # of Minutes Spent Total Time Spent with Patient: Total time spent is greater than 50% in coordination of care (as documented) at patient's floor/unit and/or counseling patient: Coding Level of Care Code 53435 SUB INP/OBS CARE 3/50MIN Diagnoses Cellulitis L03.90 Dizziness R42 Type 2 diabetes mellitus without complication, with long-term current use of insulin E11.9; Z79.4 Diabetes mellitus complication status: without complication Diabetes mellitus intermediate manager insulin use: with nursing home use Paroxysmal supraventricular tachycardia I47.1 Essential hypertension I10 Hypertension type: essential hypertension Bug bite W57.XXXA Leukocytosis D72.829 (3) Type 2 diabetes mellitus Diabetes mellitus complication status: without complication Diabetes mellitus intermediate manager insulin use: with intermediate manager use Qualified Code(s): E11.9 - Type 2 diabetes mellitus without complications; Z79.4 - longterm (current) use of insulin (5) HTN (hypertension) Hypertension type: essential hypertension Qualified Code(s): I10 - Essential (primary) hypertension
[2024-01-19] MEDS: LORATADINE 10 MG TAB PO SCH (08:30)
[2024-01-19] MEDS: MULTIVITAMIN TAB PO SCH (08:30)
[2024-01-19] MEDS: INSULIN ASPART PER UNIT CHARGE SC SCH (08:31)
[2024-01-19] MEDS: ONDANSETRON INJ 2 MG/ML 2 ML VIAL IV PRN (08:35)
[2024-01-19] MEDS ORDERED: SPIRONOLACTONE 25 MG TAB PO SCH (09:00)
[2024-01-19] MEDS ORDERED: hydroCHLOROthiazide 25 MG TAB PO SCH (09:00)
[2024-01-19 09:25] LABS: Magnesium 2.1 mg/dl (1.7-2.4)
--- NOTE | 2024-01-19 11:16 | XRay Report ---
SINGLE VIEW CHEST CLINICAL HISTORY: Leukocytosis. Dizziness. FINDINGS: An AP, portable, upright chest radiograph is compared to study dated 03/22/2016 and correlat ed with chest CT dated 10/24/2021. An electronic device projects over the left lower chest. The heart is enlarged noting atherosclerotic calcification of the thoracic aorta. There are low lung volumes wi th dependent atelectasis. No airspace consolidation or large pleural effusion is identified. No pneum othorax is seen. The skeletal structures are osteopenic. There are chronic/healed left-sided rib frac tures. IMPRESSION: Cardiomegaly with no active disease in the chest. ACT 112: Negative or not required by law. Electronically signed by: Shane Ramires M.D. 01/19/2024 11:15 AM
[2024-01-19] MEDS: DAPTOmycin 300 MG in SYRINGE 0 ML IV SCH (11:50)
[2024-01-19] MEDS: ENOXAPARIN INJ 40 MG/0.4 ML SYR SQ SCH (16:22)
--- NOTE | 2024-01-19 16:28 | Ultrasound Report ---
ULTRASOUND LEFT LOWER EXTREMITY VENOUS CLINICAL HISTORY: Dizziness. Left calf pain. Erythema. COMPARISON STUDY: No priors. TECHNIQUE: Real-time, grayscale, and color Doppler sonography of the deep veins of the left lower ext remity was performed from the inguinal crease to the calf. Compression and augmentation were utilized . FINDINGS: There is no sonographic evidence of deep venous thrombosis identified in the left lower ext remity. The common femoral, superficial femoral, and popliteal veins are patent and normally compress ible. The greater saphenous vein and the profunda femoris vein at the junction with the common femora l vein are clear. The visualized calf veins are patent. IMPRESSION: There is no sonographic evidence of deep venous thrombosis identified in the left lower e xtremity. ACT 112: Negative or not required by law. Electronically signed by: Shane Ramires M.D. 01/19/2024 4:26 PM
[2024-01-19 22:25] LABS: Appearance Urine Clear (Clear); Bilirubin Urine Negative (Negative); Blood Urine Negative (Negative); Color Urine Yellow; Glucose Urine UA Negative (Negative); Ketones Urine Negative (Negative); Leukocyte Esterase Urine Negative (Negative); Nitrite Urine Negative (Negative); Protein Urine Negative (Negative); Specific Gravity Urine 1.019 (1.000-1.030); Urobilinogen Urine Negative (Negative); pH Urine 5.5 (4.5-7.5)
--- NOTE | 2024-01-20 05:38 | Billing Data ---
Date of Service January 20, 2024 Coding Level of Care Code 92477 INT INP/OBS CARE
[2024-01-20 06:15] LABS: Basophils # (auto) 0.05 K/uL (0.00-0.20); Basophils % (auto) 0.6 %; Eosinophils # (auto) 0.22 K/uL (0.00-0.50); Eosinophils % (auto) 2.4 %; Hematocrit (blood only) 34.3 % (37.0-47.0); Hemoglobin 11.1 g/dl (12.0-16.0); Immature Granulocytes # (auto) 0.02 K/uL (0.01-0.20); Immature Granulocytes % (auto) 0.2 %; Lymphocytes # (auto) 2.47 K/uL (1.20-3.40); Lymphocytes % (auto) 27.4 %; Mean Corpuscular Hemoglobin 30.2 pg (25.0-34.0); Mean Corpuscular Hgb Conc 32.4 g/dL (32.0-36.0); Mean Corpuscular Volume 93.5 fL (80.0-100.0); Mean Platelet Volume 9.4 fL (9.4-12.4); Monocytes # (auto) 0.89 K/uL (0.11-0.59); Monocytes % (auto) 9.9 %; Neutrophils # (auto) 5.36 K/uL (1.40-6.50); Neutrophils % (auto) 59.5 %; Platelet Count 237 K/uL (130-400); RDW Coefficient of Variation 13.4 % (11.5-14.5); RDW Standard Deviation 46.1 fL (36.4-46.3); Red Blood Count 3.67 M/uL (4.20-5.40); White Blood Count 9.01 K/ul (4.8-10.8)
[2024-01-20 06:36] LABS: Albumin Globulin Ratio 1.3 (0.9-2); Albumin Level 3.3 gm/dl (3.4-5.0); BUN Creatinine Ratio 24.8 (10-20); Bilirubin,Total 0.5 mg/dl (0.2-1.0); Calcium 8.8 mg/dl (8.6-10.3); Creatinine Clr Calc Pharmacy 52.2 ml/min; Est GFR (African American) 57.5 ml/min; Est GFR (Non-African American) 49.6 ml/min; Globulin 2.5 gm/dl (2.5-4.0); Total Protein 5.8 gm/dl (6.0-8.3)
--- NOTE | 2024-01-20 08:31 | Hospitalist Progress Note ---
Date of Service January 20, 2024 Assessment & Plan (1) Cellulitis: Plan: 73yo female presented to ER with acute onset of dizziness when attempting to go to the bathroom to get up with associated nausea but no vomiting. Had been eating/drinking well up until 01/17 when symptoms started In ER, given 1L IVF, zofran and meclizine and was too sedate to discharge home and decision to admit/monitoring with PT/OT evals and discharge home vs rehab HOWEVER upon evaluation of patient, she had bandage covering area to her LEFT LATERAL LOWER CALF, and reports she was at a sporting event this past weekend and bit by many mosquitos and had been told to treat with Vaseline and cover with bandage. CT head on admit negative for acute process given complaints of dizziness. Patient w/ leukocytosis on admit to 12.6k, repeat 12k. --> Denies feeling like she has a fever. No other "mosquito bites" observed. ?spider bite given appearance Procal added, 0.03 Blood cultures added, pending Started Daptomycin IV for SSTI/possible cellulitis from "bug bite" appears more like spider bite rather than mosquito, some itching (but denied need for medication) Marked on exam, improvement in erythema/warmth, within markings WBC normalized on repeat, remains afebrile Surface cx GS w/ many WBC, few gram positive cocci -- staph species on preliminary and will monitor but suspect needing coverage for MRSA Pain control, elevation Wound RN consulted Lyme testing negative Venous Doppler NEGATIVE for DVT No further lightheaded/dizziness, improvement in PO intake. --Will resume her losartan but hold off her diuretics as no increased LE edema and slightly dehydrated on exam day prior PT/OT consulted For tomorrow, consider starting PO Clindamycin given unknown reaction to see if able to tolerate. Otherwise may need to have thomas check Linezolid. 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 Monitor labs/exam on repeat (2) Dizziness: Plan: EKG showed sinus rhythm with right bundle branch block. Hx paroxysmal atrial tachycardia. No hypoglycemia on admission CT head negative for acute intracranial process, did note mucosal thickening of sinuses on imaging, on loratadine daily for allergies Meclizine available prn if needed as suspected BPPV on admission, can attempt Elvin maneuvers w/ therapy consults [place] wharton UA appeared without infection, CXR w/o PNA process Orthostatic VS on 01/18 139/75,121/71, 135/65 and HR 88,90,109 Check loop recorder, f/u report as able but no further symptoms at present/need for monitored bed Holding diuretics for today, improvement in PO intake and resume losartan for BP but will monitor to resume others. PT/OT consults pending (3) Type 2 diabetes mellitus: Plan: A1c 7.3 on 26u glargine daily Home regimen placed on hold on admission and SSI ordered given poor PO intake prior (only 4 u SSI utilized day prior when I saw her) BSGs acceptable on SSI alone and will hold off any schedule dosing for now and continue to monitor PO intake given was not provided any additional SSI last evening Of note, her AM glu on chemistry only 89 -- may need to consider decreasing her glargine pending AM blood sugars/insulin needs through the day but will need to continue to monitor (4) Paroxysmal supraventricular tachycardia: Plan: EKG w/ NS, LAD, RBBB (RBBB is NOT new compared to prior EKGs). Followed by Dr Carvajal outpatient home diuretics on hold as above, not on any rate controlling agents monitor for need for monitored bed Will place order for device interrogation for her loop recorder to see if she maybe had any further SVT yesterday morning leading to her symptoms. message to cards if any abn finding/move to monitored bed (5) HTN (hypertension): Plan: As above, holding diuretics/olmesartan given stable BP and HTN on admission, improved w/ hydration and suspect some dizziness from dehydration on admission monitor to resume meds as needed, --> resuming losartan as above Holding spironolactone/HCTZ for now but if stable PO intake/elevated BP in am can consider resuming however may not be best choices for her for BP control if no hx CHF or LE edema symptoms (6) Bug bite: Plan: as above, reported as mosquitos. Doppler obtained to r/o DVT given calf pain (pulses palpable) abx as above with improvement, within markings/WBC normalized wound RN to see in AM (7) Leukocytosis: Plan: as above, suspect 2nd to her LLE infection/cellulitis UA/CXR not appearing infectious as added prior to exam and findings of her LLE IMPROVED on repeat w/ abx as outlined above Plan DVT proph: Lovenox SQ added given infection. Doppler NEGATIVE for DVT Continue IV abx, monitor exam in AM. Possible dc next 24-48 hours pending repeat exam and therapy evaluations Admission and Anticipated Discharge Date Admission Date: January 18, 2024 Supervising Physician Co-Signing Physician Notes The patient was not seen by me. The chart was reviewed. Case discussed with COLLEEN Suárez. Agree with assessment and plan Subjective Got up this morning to go to bathroom and get herself cleaned up. No further dizziness. Evaluated in room, sitting up in the chair. Feeling better. Leg cellulitis/bite looking improved and WBC now normal. CXs pending. Discussion about allergies, consideration for clindamycin as good MRSA coverage and appearance w/ more like spider bite. Can consider clindamycin tomorrow and will monitor for any reaction as discussed likely best choice for abx for her at discharge. Anticipate dc in next 24-48 hours, she is agreeable to stay til sunday if needed. Will resume her losartan but hold off diuretics for now. Physical Exam Physical Exam: Constitutional: 73yo obese female sitting up in recliner chair, nursing changing dressing, appears much improved Head atraumatic, normocephalic, mm improved, trachea midline Resp: even/unlabored no w/c/r, on room air 94% CV: RRR, no significant m/r/g, no pitting edema, decreased calf tenderness -- see below regarding skin findins RLE>LLE despite pain on the left, pulses palpable. No calf pain on the right reported GI: +BS, soft/obese, nontender : no [place] MSK/Neuro: nonfocal, answering questions/no slurred speech, no confusion Psych: AOx3, cooperative, less fatigued Skin: LEFT lower extremity with IMPROVEMENT in cellulitis, quarter size lesion w/ yellowish drainage on baindaid, less malodorous today, significant improvement in warmth/redness, within markings Results & Data Results & Data Vital Signs (Past 12 Hours) Vital Signs Temp Pulse Resp BP Pulse Ox O2 Del Method 01/20/24 07:42 37.0 C 85 16 124/55 L 94 Room Air 01/19/24 23:14 36.8 C 72 16 138/74 98 Room Air 01/19/24 21:05 36.7 C 83 16 148/81 H 95 Room Air Laboratory Results 01/20/24 01/20/24 01/20/24 Range/Units 11:37 07:43 05:30 WBC 9.01 (4.8-10.8) K/ul RBC 3.67 L (4.20-5.40) M/uL Hgb 11.1 L (12.0-16.0) g/dl Hct 34.3 L (37.0-47.0) % MCV 93.5 (80.0-100.0) fL MCH 30.2 (25.0-34.0) pg MCHC 32.4 (32.0-36.0) g/dL RDW Std Deviation 46.1 (36.4-46.3) fL RDW Coeff of Jessica 13.4 (11.5-14.5) % Plt Count 237 (130-400) K/uL MPV 9.4 (9.4-12.4) fL Immature Gran % (Auto) 0.2 % Neut % (Auto) 59.5 % Lymph % (Auto) 27.4 % Harper % (Auto) 9.9 % Eos % (Auto) 2.4 % Baso % (Auto) 0.6 % Neut # (Auto) 5.36 (1.40-6.50) K/uL Lymph # (Auto) 2.47 (1.20-3.40) K/uL Harper # (Auto) 0.89 H (0.11-0.59) K/uL Eos # (Auto) 0.22 (0.00-0.50) K/uL Baso # (Auto) 0.05 (0.00-0.20) K/uL Immature Gran # (Auto) 0.02 (0.01-0.20) K/uL Sodium 138 (136-145) mmol/L Potassium 4.0 (3.5-5.1) mmol/L Chloride 106 (98-107) mmol/L Carbon Dioxide 28 (21-32) mmol/L Anion Gap 4 (3-11) BUN 27 H (6-23) mg/dl Creatinine 1.09 (0.6-1.2) mg/dl Est Cr Clr Drug Dosing 52.2 ml/min Est GFR ( Amer) 57.5 ml/min Est GFR (Non-Af Amer) 49.6 ml/min BUN/Creatinine Ratio 24.8 H (10-20) Glucose 89 (70-99(Fasting)) mg/dl POC Glucose 146 H 88 (70-99) mg/dl Calcium 8.8 (8.6-10.3) mg/dl Magnesium 2.0 (1.7-2.4) mg/dl Total Bilirubin 0.5 (0.2-1.0) mg/dl AST 12 L (13-39) U/L ALT 9 (7-52) U/L Alkaline Phosphatase 71 (34-104) U/L B-Natriuretic Peptide 70 (0-100) pg/ml Total Protein 5.8 L D (6.0-8.3) gm/dl Albumin 3.3 L (3.4-5.0) gm/dl Globulin 2.5 (2.5-4.0) gm/dl Albumin/Globulin Ratio 1.3 (0.9-2) Urine Color Urine Appearance (Clear) Urine pH (4.5-7.5) Ur Specific Canmer (1.000-1.030) Urine Protein (Negative) Urine Glucose (UA) (Negative) Urine Ketones (Negative) Urine Blood (Negative) Urine Nitrite (Negative) Urine Bilirubin (Negative) Urine Urobilinogen (Negative) Ur Leukocyte Esterase (Negative) Lyme Disease Screen (Negative) 01/19/24 01/19/24 01/19/24 Range/Units Unknown 21:26 16:43 WBC (4.8-10.8) K/ul RBC (4.20-5.40) M/uL Hgb (12.0-16.0) g/dl Hct (37.0-47.0) % MCV (80.0-100.0) fL MCH (25.0-34.0) pg MCHC (32.0-36.0) g/dL RDW Std Deviation (36.4-46.3) fL RDW Coeff of Jessica (11.5-14.5) % Plt Count (130-400) K/uL MPV (9.4-12.4) fL Immature Gran % (Auto) % Neut % (Auto) % Lymph % (Auto) % Harper % (Auto) % Eos % (Auto) % Baso % (Auto) % Neut # (Auto) (1.40-6.50) K/uL Lymph # (Auto) (1.20-3.40) K/uL Harper # (Auto) (0.11-0.59) K/uL Eos # (Auto) (0.00-0.50) K/uL Baso # (Auto) (0.00-0.20) K/uL Immature Gran # (Auto) (0.01-0.20) K/uL Sodium (136-145) mmol/L Potassium (3.5-5.1) mmol/L Chloride (98-107) mmol/L Carbon Dioxide (21-32) mmol/L Anion Gap (3-11) BUN (6-23) mg/dl Creatinine (0.6-1.2) mg/dl Est Cr Clr Drug Dosing ml/min Est GFR ( Amer) ml/min Est GFR (Non-Af Amer) ml/min BUN/Creatinine Ratio (10-20) Glucose (70-99(Fasting)) mg/dl POC Glucose 133 H 107 H (70-99) mg/dl Calcium (8.6-10.3) mg/dl Magnesium (1.7-2.4) mg/dl Total Bilirubin (0.2-1.0) mg/dl AST (13-39) U/L ALT (7-52) U/L Alkaline Phosphatase (34-104) U/L B-Natriuretic Peptide (0-100) pg/ml Total Protein (6.0-8.3) gm/dl Albumin (3.4-5.0) gm/dl Globulin (2.5-4.0) gm/dl Albumin/Globulin Ratio (0.9-2) Urine Color Yellow Urine Appearance Clear (Clear) Urine pH 5.5 (4.5-7.5) Ur Specific Canmer 1.019 (1.000-1.030) Urine Protein Negative (Negative) Urine Glucose (UA) Negative (Negative) Urine Ketones Negative (Negative) Urine Blood Negative (Negative) Urine Nitrite Negative (Negative) Urine Bilirubin Negative (Negative) Urine Urobilinogen Negative (Negative) Ur Leukocyte Esterase Negative (Negative) Lyme Disease Screen (Negative) 04/20/24 Range/Units 10:01 WBC (4.8-10.8) K/ul RBC (4.20-5.40) M/uL Hgb (12.0-16.0) g/dl Hct (37.0-47.0) % MCV (80.0-100.0) fL MCH (25.0-34.0) pg MCHC (32.0-36.0) g/dL RDW Std Deviation (36.4-46.3) fL RDW Coeff of Jessica (11.5-14.5) % Plt Count (130-400) K/uL MPV (9.4-12.4) fL Immature Gran % (Auto) % Neut % (Auto) % Lymph % (Auto) % Harper % (Auto) % Eos % (Auto) % Baso % (Auto) % Neut # (Auto) (1.40-6.50) K/uL Lymph # (Auto) (1.20-3.40) K/uL Harper # (Auto) (0.11-0.59) K/uL Eos # (Auto) (0.00-0.50) K/uL Baso # (Auto) (0.00-0.20) K/uL Immature Gran # (Auto) (0.01-0.20) K/uL Sodium (136-145) mmol/L Potassium (3.5-5.1) mmol/L Chloride (98-107) mmol/L Carbon Dioxide (21-32) mmol/L Anion Gap (3-11) BUN (6-23) mg/dl Creatinine (0.6-1.2) mg/dl Est Cr Clr Drug Dosing ml/min Est GFR ( Amer) ml/min Est GFR (Non-Af Amer) ml/min BUN/Creatinine Ratio (10-20) Glucose (70-99(Fasting)) mg/dl POC Glucose (70-99) mg/dl Calcium (8.6-10.3) mg/dl Magnesium (1.7-2.4) mg/dl Total Bilirubin (0.2-1.0) mg/dl AST (13-39) U/L ALT (7-52) U/L Alkaline Phosphatase (34-104) U/L B-Natriuretic Peptide (0-100) pg/ml Total Protein (6.0-8.3) gm/dl Albumin (3.4-5.0) gm/dl Globulin (2.5-4.0) gm/dl Albumin/Globulin Ratio (0.9-2) Urine Color Urine Appearance (Clear) Urine pH (4.5-7.5) Ur Specific [place] (1.000-1.030) Urine Protein (Negative) Urine Glucose (UA) (Negative) Urine Ketones (Negative) Urine Blood (Negative) Urine Nitrite (Negative) Urine Bilirubin (Negative) Urine Urobilinogen (Negative) Ur Leukocyte Esterase (Negative) Lyme Disease Screen Negative (Negative) Diagnostic Findings Chest X-Ray 01/19/24 08:28 SINGLE VIEW CHEST CLINICAL HISTORY: Leukocytosis. Dizziness. FINDINGS: An AP, portable, upright chest radiograph is compared to study dated 03/22/2016 and correlated with chest CT dated 10/24/2021. An electronic device projects over the left lower chest. The heart is enlarged noting atherosclerotic calcification of the thoracic aorta. There are low lung volumes with dependent atelectasis. No airspace consolidation or large pleural effusion is identified. No pneumothorax is seen. The skeletal structures are osteopenic. There are chronic/healed left-sided rib fractures. IMPRESSION: Cardiomegaly with no active disease in the chest. ACT 112: Negative or not required by law. Electronically signed by: Shane Ramires M.D. 01/19/2024 11:15 AM Venous Doppler Study 01/19/24 10:07 ULTRASOUND LEFT LOWER EXTREMITY VENOUS CLINICAL HISTORY: Dizziness. Left calf pain. Erythema. COMPARISON STUDY: No priors. TECHNIQUE: Real-time, grayscale, and color Doppler sonography of the deep veins of the left lower extremity was performed from the inguinal crease to the calf. Compression and augmentation were utilized. FINDINGS: There is no sonographic evidence of deep venous thrombosis identified in the left lower extremity. The common femoral, superficial femoral, and popliteal veins are patent and normally compressible. The greater saphenous vein and the profunda femoris vein at the junction with the common femoral vein are clear. The visualized calf veins are patent. IMPRESSION: There is no sonographic evidence of deep venous thrombosis identified in the left lower extremity. ACT 112: Negative or not required by law. Electronically signed by: Shane Ramires M.D. 01/19/2024 4:26 PM PG Care Time/CCT Total # of Minutes Spent Total Time Spent with Patient: Total time spent is greater than 50% in coordination of care (as documented) at patient's floor/unit and/or counseling patient: Coding Level of Care Code 30498 SUB INP/OBS CARE 3/50MIN Diagnoses Cellulitis L03.90 Dizziness R42 Type 2 diabetes mellitus without complication, with long-term current use of insulin E11.9; Z79.4 Diabetes mellitus complication status: without complication Diabetes mellitus correction insulin use: with correction use Paroxysmal supraventricular tachycardia I47.1 Essential hypertension I10 Hypertension type: essential hypertension Bug bite W57.XXXA Leukocytosis D72.829 (3) Type 2 diabetes mellitus Diabetes mellitus complication status: without complication Diabetes mellitus adjunct faculty for medical terminology insulin use: with adjunct faculty for medical terminology use Qualified Code(s): E11.9 - Type 2 diabetes mellitus without complications; Z79.4 - rat exterminator (current) use of insulin (5) HTN (hypertension) Hypertension type: essential hypertension Qualified Code(s): I10 - Essential (primary) hypertension
[2024-01-20] MEDS: LOSARTAN POTASSIUM 50 MG TAB PO ONE (16:19)
[2024-01-21 07:35] LABS: Basophils # (auto) 0.05 K/uL (0.00-0.20); Basophils % (auto) 0.5 %; Eosinophils # (auto) 0.21 K/uL (0.00-0.50); Eosinophils % (auto) 2.3 %; Hemoglobin 11.2 g/dl (12.0-16.0); Immature Granulocytes # (auto) 0.01 K/uL (0.01-0.20); Immature Granulocytes % (auto) 0.1 %; Lymphocytes # (auto) 1.83 K/uL (1.20-3.40); Lymphocytes % (auto) 19.6 %; Mean Corpuscular Hemoglobin 29.9 pg (25.0-34.0); Mean Corpuscular Volume 93.6 fL (80.0-100.0); Mean Platelet Volume 9.3 fL (9.4-12.4); Monocytes # (auto) 0.95 K/uL (0.11-0.59); Monocytes % (auto) 10.2 %; Neutrophils # (auto) 6.28 K/uL (1.40-6.50); Neutrophils % (auto) 67.3 %; Platelet Count 227 K/uL (130-400); RDW Coefficient of Variation 13.4 % (11.5-14.5); RDW Standard Deviation 46.2 fL (36.4-46.3); Red Blood Count 3.74 M/uL (4.20-5.40); White Blood Count 9.33 K/ul (4.8-10.8)
[2024-01-21 08:10] LABS: BUN Creatinine Ratio 23.6 (10-20); Creatinine Clr Calc Pharmacy 53.6 ml/min; Est GFR (African American) 59.5 ml/min; Est GFR (Non-African American) 51.3 ml/min; Potassium 4.1 mmol/L (3.5-5.1)
[2024-01-21] MEDS: LOSARTAN POTASSIUM 50 MG TAB PO SCH (08:18)
--- NOTE | 2024-01-21 08:33 | Hospitalist Progress Note ---
Date of Service January 21, 2024 Assessment & Plan (1) Cellulitis: Plan: 73yo female presented to ER with acute onset of dizziness when attempting to go to the bathroom to get up with associated nausea but no vomiting. Had been eating/drinking well up until 01/17 when symptoms started In ER, given 1L IVF, zofran and meclizine and was too sedate to discharge home and decision to admit/monitoring with PT/OT evals and discharge home vs rehab HOWEVER upon evaluation of patient, she had bandage covering area to her LEFT LATERAL LOWER CALF, and reports she was at a sporting event this past weekend and bit by many mosquitos and had been told to treat with Vaseline and cover with bandage. CT head on admit negative for acute process given complaints of dizziness. Patient w/ leukocytosis on admit to 12.6k, repeat 12k. --> Denies feeling like she has a fever. No other "mosquito bites" observed. ?spider bite given appearance Procal added, 0.03 Blood cultures added, NGTD Venous Doppler NEGATIVE. Lyme testing negative + Daptomycin IV 01/18 for SSTI/possible cellulitis from "bug bite" appears more like spider bite rather than mosquito, some itching (but denied need for medication) IMPROVEMENT in cellulitis WBC normalized, remains AFEBRILE Switching to CLINDAMYCIN for AM 01/21 given multiple allergies (on list, but unclear reaction, no anaphylaxis and will attempt). If tolerates, would plan to complete course on PO Clindamycin Marked on exam, improvement in erythema/warmth, within markings Pain control, elevation Wound RN consult pending No further lightheaded/dizziness, spironolactone/HCTZ remain on hold. Appetite ok. Monitor PT/OT consults pending (lives alone) Monitor labs/exam on repeat. DM/BSGs as below Hopeful dc in AM 01/21 (2) Dizziness: Plan: EKG showed sinus rhythm with right bundle branch block. Hx paroxysmal atrial tachycardia. No hypoglycemia on admission CT head negative for acute intracranial process, did note mucosal thickening of sinuses on imaging, on loratadine daily for allergies Meclizine available prn if needed as suspected BPPV on admission, can attempt Elvin maneuvers w/ therapy consults Zofran prn UA appeared without infection, CXR w/o PNA process Orthostatic VS on 01/18 139/75,121/71, 135/65 and HR 88,90,109 Checked loop recorder, f/u report as able but no further symptoms at present/need for monitored bed -- NO ARRHYTHMIA NOTED Holding diuretics for today, resumed losartan 01/19. No lightheaded/dizziness. Diuretics remain on hold while PO intake monitored Therapy evals pending (3) Type 2 diabetes mellitus: Plan: A1c 7.3 on 26u glargine daily Home regimen placed on hold on admission and SSI ordered given poor PO intake prior (only 4 u SSI utilized day prior when I saw her) BSGs acceptable on SSI alone and will hold off any schedule dosing for now and continue to monitor PO intake given was not provided any additional SSI last evening Of note, her AM glu on chemistry only 89 01/19, 117 on today's BMP --> Review PCP note, taking 27u daily with highest BSG 133 in past couple of weeks but no reported hypoglycemia (?how often is she checking these). Suspect when started and A1c>11 at time of diagnosis and appears w/ ongoing weight loss and likely less needs. SHe reports she checks her sugars 2-3 times A WEEK. Recommend having increased checks. ?Carlos Manuel monitor for improvement in compliance DM Educator consulted. MOnitor insulin needs but suspect benefit in splitting up dosing/decreasing and outpt f/u PCP. Consider endo referral. (4) Paroxysmal supraventricular tachycardia: Plan: EKG w/ NS, LAD, RBBB (RBBB is NOT new compared to prior EKGs). Followed by Dr Carvajal outpatient home diuretics on hold as above, not on any rate controlling agents monitor for need for monitored bed INTERROGATION WITHOUT ABNORMALITY (5) HTN (hypertension): Plan: As above, holding diuretics/olmesartan given stable BP and HTN on admission, improved w/ hydration and suspect some dizziness from dehydration on admission monitor to resume meds as needed, --> resuming losartan as above Holding spironolactone/HCTZ for now but if stable PO intake/elevated BP in am can consider resuming however may not be best choices for her for BP control if no hx CHF or LE edema symptoms (6) Bug bite: Plan: as above, reported as mosquitos. Doppler obtained to r/o DVT given calf pain (pulses palpable) abx as above with improvement, within markings/WBC normalized wound RN to see today (7) Leukocytosis: Plan: as above, suspect 2nd to her LLE infection/cellulitis UA/CXR not appearing infectious as added prior to exam and findings of her LLE IMPROVED on repeat w/ abx as outlined above Plan DVT proph: Lovenox SQ added given infection. Doppler NEGATIVE for DVT Continue abx, switching to clinda PO for tomorrow. Wound RN consult pending/DM educator. PT/OT consults ordered but not yet complete. Monitor insulin needs/adjustment as outlined. If tolerating PO clinda and therapy evals cleared for home, anticipate dc 01/21 Admission and Anticipated Discharge Date Admission Date: January 18, 2024 Subjective Evaluated this morning, feeling slightly worse today however did note she only slept from 2-4am due to her roommate. Leg cellulitis/wound looking better. Believes issues with Doxy and rash/hives, but unsure on Clindamycin. Will plan to switch to PO CLindamycin for AM and if tolerating plan for dc. Regarding her insulin, she checks her BSGs 2-3x/week. Discussed possible low prior to admit but she does note she checked her BSG and was 133 prior to coming in, however needs have been lower. Will await wound RN consult and also for DM educator and monitor insulin needs and discussed likely adjustment for dc tomorrow. No increased edema, no lightheadedness. HOlding off her spironolactone/HCTZ at present and continues on losartan alone. She does live alone and agreeable to stay overnight to ensure issues address ed/safe for dc home. PT/OT pending. Questions/concerns addressed at this time. Physical Exam Physical Exam: Constitutional: 73yo obese female laying in bed, NAD but fatigued appearing/didn't get much sleep Head atraumatic, normocephalic, mm improved, trachea midline Resp: even/unlabored no w/c/r, on room air 95% CV: RRR, no significant m/r/g, no pitting edema, decreased calf tenderness -- see below regarding skin findings RLE>LLE despite pain on the left, pulses palpable. No calf pain on the right re ported. Doppler NEGATIVE for LLE GI: +BS, soft/obese, nontender : no [place] MSK/Neuro: nonfocal, answering questions/no slurred speech, no confusion Psych: AOx3, cooperative, less fatigued Skin: LEFT lower extremity with IMPROVEMENT in cellulitis, quarter size lesion w/ yellowish drainage on baindaid, less malodorous today, significant improvement in warmth/redness, within markings Results & Data Results & Data Vital Signs (Past 12 Hours) Vital Signs Temp Pulse Resp BP Pulse Ox O2 Del Method 01/21/24 06:58 36.9 C 60 16 132/69 95 Room Air Laboratory Results 01/21/24 01/21/24 01/20/24 Range/Units 07:30 07:01 20:43 WBC 9.33 (4.8-10.8) K/ul RBC 3.74 L (4.20-5.40) M/uL Hgb 11.2 L (12.0-16.0) g/dl Hct 35.0 L (37.0-47.0) % MCV 93.6 (80.0-100.0) fL MCH 29.9 (25.0-34.0) pg MCHC 32.0 (32.0-36.0) g/dL RDW Std Deviation 46.2 (36.4-46.3) fL RDW Coeff of Jessica 13.4 (11.5-14.5) % Plt Count 227 (130-400) K/uL MPV 9.3 L (9.4-12.4) fL Immature Gran % (Auto) 0.1 % Neut % (Auto) 67.3 % Lymph % (Auto) 19.6 % Letcher % (Auto) 10.2 % Eos % (Auto) 2.3 % Baso % (Auto) 0.5 % Neut # (Auto) 6.28 (1.40-6.50) K/uL Lymph # (Auto) 1.83 (1.20-3.40) K/uL Letcher # (Auto) 0.95 H (0.11-0.59) K/uL Eos # (Auto) 0.21 (0.00-0.50) K/uL Baso # (Auto) 0.05 (0.00-0.20) K/uL Immature Gran # (Auto) 0.01 (0.01-0.20) K/uL Sodium 139 (136-145) mmol/L Potassium 4.1 (3.5-5.1) mmol/L Chloride 106 (98-107) mmol/L Carbon Dioxide 29 (21-32) mmol/L Anion Gap 4 (3-11) BUN 25 H (6-23) mg/dl Creatinine 1.06 (0.6-1.2) mg/dl Est Cr Clr Drug Dosing 53.6 ml/min Est GFR ( Amer) 59.5 ml/min Est GFR (Non-Af Amer) 51.3 ml/min BUN/Creatinine Ratio 23.6 H (10-20) Glucose 117 H (70-99(Fasting)) mg/dl POC Glucose 109 H 150 H (70-99) mg/dl Calcium 9.0 (8.6-10.3) mg/dl 01/20/24 01/20/24 Range/Units 16:44 11:37 WBC (4.8-10.8) K/ul RBC (4.20-5.40) M/uL Hgb (12.0-16.0) g/dl Hct (37.0-47.0) % MCV (80.0-100.0) fL MCH (25.0-34.0) pg MCHC (32.0-36.0) g/dL RDW Std Deviation (36.4-46.3) fL RDW Coeff of Jessica (11.5-14.5) % Plt Count (130-400) K/uL MPV (9.4-12.4) fL Immature Gran % (Auto) % Neut % (Auto) % Lymph % (Auto) % Letcher % (Auto) % Eos % (Auto) % Baso % (Auto) % Neut # (Auto) (1.40-6.50) K/uL Lymph # (Auto) (1.20-3.40) K/uL Letcher # (Auto) (0.11-0.59) K/uL Eos # (Auto) (0.00-0.50) K/uL Baso # (Auto) (0.00-0.20) K/uL Immature Gran # (Auto) (0.01-0.20) K/uL Sodium (136-145) mmol/L Potassium (3.5-5.1) mmol/L Chloride (98-107) mmol/L Carbon Dioxide (21-32) mmol/L Anion Gap (3-11) BUN (6-23) mg/dl Creatinine (0.6-1.2) mg/dl Est Cr Clr Drug Dosing ml/min Est GFR ( Amer) ml/min Est GFR (Non-Af Amer) ml/min BUN/Creatinine Ratio (10-20) Glucose (70-99(Fasting)) mg/dl POC Glucose 111 H 146 H (70-99) mg/dl Calcium (8.6-10.3) mg/dl PG Care Time/CCT Total # of Minutes Spent Total Time Spent with Patient: Total time spent is greater than 50% in coordination of care (as documented) at patient's floor/unit and/or counseling patient: Coding Level of Care Code 59869 SUB INP/OBS CARE 350MIN Diagnoses Cellulitis L03.90 Dizziness R42 Type 2 diabetes mellitus without complication, with long-term current use of insulin E11.9; Z79.4 Diabetes mellitus complication status: without complication Diabetes mellitus senior living insulin use: with chef's assistant use Paroxysmal supraventricular tachycardia I47.1 Essential hypertension I10 Hypertension type: essential hypertension Bug bite W57.XXXA Leukocytosis D72.829 (3) Type 2 diabetes mellitus Diabetes mellitus complication status: without complication Diabetes mellitus chef's assistant insulin use: with chef's assistant use Qualified Code(s): E11.9 - Type 2 diabetes mellitus without complications; Z79.4 - outreach director (current) use of insulin (5) HTN (hypertension) Hypertension type: essential hypertension Qualified Code(s): I10 - Essential (primary) hypertension
[2024-01-22 07:29] LABS: Basophils # (auto) 0.05 K/uL (0.00-0.20); Basophils % (auto) 0.6 %; Eosinophils # (auto) 0.22 K/uL (0.00-0.50); Eosinophils % (auto) 2.5 %; Hematocrit (blood only) 34.3 % (37.0-47.0); Hemoglobin 10.9 g/dl (12.0-16.0); Immature Granulocytes # (auto) 0.03 K/uL (0.01-0.20); Immature Granulocytes % (auto) 0.3 %; Lymphocytes # (auto) 2.04 K/uL (1.20-3.40); Lymphocytes % (auto) 23.2 %; Mean Corpuscular Hgb Conc 31.8 g/dL (32.0-36.0); Mean Corpuscular Volume 94.5 fL (80.0-100.0); Mean Platelet Volume 9.1 fL (9.4-12.4); Monocytes # (auto) 0.89 K/uL (0.11-0.59); Monocytes % (auto) 10.1 %; Neutrophils # (auto) 5.58 K/uL (1.40-6.50); Neutrophils % (auto) 63.3 %; Platelet Count 208 K/uL (130-400); RDW Coefficient of Variation 13.3 % (11.5-14.5); RDW Standard Deviation 46.3 fL (36.4-46.3); Red Blood Count 3.63 M/uL (4.20-5.40); White Blood Count 8.81 K/ul (4.8-10.8)
[2024-01-22 07:48] LABS: BUN Creatinine Ratio 23.9 (10-20); Calcium 8.8 mg/dl (8.6-10.3); Creatinine Clr Calc Pharmacy 55.5 ml/min; Est GFR (African American) 57.5 ml/min; Est GFR (Non-African American) 49.6 ml/min; Potassium 4.1 mmol/L (3.5-5.1)
[2024-01-22] MEDS: CLINDAMYCIN HCL 150 MG CAP PO SCH (08:48)
--- NOTE | 2024-01-22 11:32 | Discharge Summary ---
Date of Service January 22, 2024 Admission HPI Per Admitting Provider Patient is a 73-year-old female with past medical history of type 2 diabetes, hypertension, asthma, paroxysmal supraventricular tachycardia, and morbid obesity who presents to the hospital with dizziness that started this morning. Patient woke up around 7 AM, went to eat something, then around 9 AM started to feel dizzy as well as nauseous. She did have some dry heaving but no vomiting. States that she felt like the room was spinning and that when she closes her eyes it continued. The dizziness got worse with movement. She denies any falls. She denies any abdominal pain. Denies any chest pain, shortness of breath, recent fever. Does state that she has been having some allergy symptoms recently with some cough but no recent illness. States that she has never had this before. Denies any ear ringing. Admission Exam Per Admitting Provider Constitutional: well-appearing, no acute distress HEENT: NCAT, no conjunctival injection CV: regular rhythm, no murmur appreciated, extremities well-perfused, no LE edema Resp: CTABL, no wheezes/rales/rhonchi appreciated, no increased work of breathing GI: soft, nondistended, nontender, BS normoactive MSK: no gross deformities appreciated Skin: warm, dry, no rash appreciated Neuro: alert, oriented, no focal neurologic deficit appreciated Principal Diagnosis BPPV, Cellulitis Discharge Exam General: AAOx3, afebrile, NAD CV: RRR no r/m/g Pulm: CTA bilaterally, normal resp effort, no resp distress GI: soft, nontender, nondistended Ext: (L) lower extremity with improvement in cellulitis (redness seems to be slightly receded within markings), quarter size lesion w/ yellowish drainage on bandage Discharge Data Allergies Allergy/AdvReac Type Severity Reaction Status Date / Time erythromycin base Allergy Severe ANAPHYLAXIS Verified 01/18/24 19:22 metformin Allergy Severe GENERALIZED Verified 01/18/24 19:22 RASH AND ITCHING Penicillins Allergy Severe ANAPHYLAXIS, Verified 01/18/24 19:22 RASH cefaclor Allergy Intermediate RASH Verified 01/18/24 19:22 tetanus toxoid, adsorbed Allergy Intermediate REDNESS, Verified 01/18/24 19:22 SWELLING AT INSERTION SITE Quinolones Allergy Mild RASH Verified 01/18/24 19:22 clindamycin Allergy Unknown Unknown Verified 01/18/24 19:22 Influenza Virus Vaccines Allergy Unknown Unknown Verified 01/18/24 19:22 Sulfa (Sulfonamide Allergy Unknown Unknown Verified 01/18/24 19:22 Antibiotics) tetracycline Allergy Unknown Unknown Verified 01/18/24 19:22 Tetracyclines Allergy Unknown MINOCYCLINE Verified 01/18/24 19:22 /DOXY prednisone AdvReac Intermediate PSYCHOSIS Verified 01/18/24 19:22 vancomycin AdvReac Intermediate RED MAN Verified 01/18/24 19:22 SYNDROME - RASH, WBC DECREASED Consultations 01/18/24 21:26 ED Decision to Admit Stat Ordered Studies 01/18/24 18:13 CT head/brain wo con Stat 01/19/24 10:07 US venous doppler LE LT Routine Hospital Course (1) Dizziness: Improved after initiation of Meclizine Seems to be related to BPPV Will discharge today with Meclizine prn (2) Type 2 diabetes mellitus: Stable Continue home regimen (3) Paroxysmal supraventricular tachycardia: Stable. Continue home meds after discharge. (4) HTN (hypertension): Stable. Continue home meds after discharge (5) Cellulitis: Present in left lateral calf Possible due to bug bite? No leukocytosis and afebrile S/p 3 days of Daptomycin with improvement of cellulitis. Today trial of Clindam ycin 300mg Q6h started given her history of allergies to multiple antibiotics. Has tolerated well, and so will discharge with 3 more days of Clindamycin to complete 7 days total of therapy. Plan Will discharge today. Total Time Total Time Spent Total Time Spent (In Minutes): As per attending attestation. Discharge Plan Discharge Items Patient Disposition: Home - Self-Care Reason For Visit: DIZZINESS Discharge Diagnosis: BPPV, Cellulitis Activity: Per Instructions section Non-emergency contact: Primary Care Provider Call non-emergency contact if: your symptoms worsen and your temperature is above 101 Follow-up/Referrals: Raciel Garsia MD [Primary Care Provider] - Diet: Carb Consistent or DM2 Addtl Attending Provider Instructions: You have been hospitalized dizziness. CT of the head was negative for acute stroke. Interrogation of your loop recorder did NOT show any arrhythmia as contributing, and I suspect the wound to your left leg in the site of reported insect bite is the source for you feeling like this and your white count elevation on admission. I suspect you also had a little bit of dehydration from the spironolactone/hydrochlorothiazide and decreased oral intake. You were treated with IV antibiotics with Daptomycin and cultures were obtained which grew STAPH and your white count improved and normalized on repeat. BLood cultures have remained negative. Ultrasound of the leg was NEGATIVE for acute blood clot given reports of pain to your calf which was likely from the infection. At discharge, you are being continued on CLINDAMYCIN, which you were started on while in the hospital and tolerating, and are to continue this at discharge to complete the course. This is to be taken as followinmg by mouth FOUR times daily. Please monitor for any increased diarrhea while on this antibiotic and notify your medical provider if you are having increased diarrhea/abdominal pain with significant increase in diarrhea as discussed, can cause infection caused cdiff, which can be caused by any antibiotics but will need to cautious and monitor please. Wound care was consulted and you should continue with Clindamycin 300mg by mouth every 6 hours for 3 more days at discharge. Please continue to monitor for any increased redness/drainage or swelling. You should monitor your blood pressures at home and discuss ongoing management with primary care but at discharge, would recommend you holding your spironolactone and hydrochlorothiazide for another day until your diet is back to usual. Your insulin needs were also decreased while in the hospital and you should likely monitor closely at discharge and cut your insulin in half until diet back to usual or if elevated blood sugars to prevent going low. Please follow up with primary care in the next 7-10 days to monitor your progress after discharge from the hospital. It has been a pleasure being a part of the medical team providing for you while you have been in the hospital. Take care! Pending Studies at Discharge: No Stand-Alone Forms: [facility], Sm[facility] Cess[facility] Medications and DC Order Prescriptions: New clindamycin HCl 150 mg Capsule 300 mg PO Q6 3 Days Qty: 24 0RF meclizine 12.5 mg Tablet 12.5 mg PO Q24H PRN (Reason: dizziness) Qty: 30 0RF Continued olmesartan 40 mg tablet 40 mg PO DAILY Qty: 90 3RF loratadine 10 mg capsule 10 mg PO DAILY acetaminophen [Tylenol Extra Strength] 500 mg tablet 1,000 mg PO Q6H PRN (Reason: Pain) (DME) lancets [OneTouch Delica Plus Lancet] 33 gauge misc See Rx Instructions .Route Qty: 100 2RF Rx Instructions: Check blood sugar once daily and prn multivitamin [Daily Multi-Vitamin] Tablet 1 tab PO DAILY (DME) OneTouch Verio test strips Strip See Rx Instructions .Route Qty: 100 5RF Rx Instructions: use to test blood sugar every other day insulin glargine [Lantus Solostar U-100 Insulin] 100 unit/mL (3 mL) insulin pen 26 unit subcut DAILY Qty: 15 5RF (DME) pen needle, diabetic [Comfort EZ Pen Kingman] 31 gauge x 1/4" needle See Rx Instructions .Route Qty: 100 3RF Rx Instructions: Inject once daily with Lantus spironolactone 25 mg tablet 25 mg PO DAILY Qty: 90 3RF hydrochlorothiazide 25 mg tablet 25 mg PO DAILY Qty: 90 3RF Krames/Other Patient Handouts: Managing Type 2 Diabetes Admission Data Admit Date/Time: 01/21/24 14:20 Attending Provider: Nate Denney Admit Provider: Shane Madrigal Primary Care Provider: Raciel Garsia Other Providers: [place] Resident Activity Tracking Resident Involvement: Resident Care Provided Care Provided: Adult Hospital Medicine
--- NOTE | 2024-01-22 16:24 | Hospitalist Progress Note ---
Date of Service January 22, 2024 Assessment & Plan (1) Dizziness: Plan: - Improved after initiation of Meclizine - Seems to be related to BPPV - Continue Meclizine prn (2) Type 2 diabetes mellitus: Plan: - Stable - Hgb A1c from 01/19/24 was 7.3% - Home insulin on hold - Continue SSI (3) Paroxysmal supraventricular tachycardia: Plan: - Stable. - Continue home meds (4) HTN (hypertension): Plan: - Stable. - Continue home meds (5) Cellulitis: Plan: - Present in left lateral calf - Possible due to bug bite (mosquito versus spider)? - No leukocytosis and afebrile - S/p 3 days of Daptomycin with improvement of cellulitis. Today trial of Clindamycin 300mg Q6h started given her history of allergies to multiple antibiotics. Has tolerated well, and so [if still clinically stable] will disc harge tomorrow with 3 more days of Clindamycin to complete 7 days total of therapy. (6) Vasovagal episode: Plan: - Nursing notified patient had gone to restroom and was straining, after which she felt sweaty and almost had a syncopal episode. BP at this time was 68/44 which improved to 112/86 after laying back down. - Patient states that she had felt sweaty and had a "funny feeling in her stomach" and then she noted her vision become blurry - At the time she was laying down and does not feel these symptoms or any others (e.g. SOB, cp, underwood, etc.) - Orthostatics positive - Likely vasovagal episode versus orthostatic hypotension. - Will encourage continued hydration and add LR at maintenance rate. - Continue to hold home antihypertensives Admission and Anticipated Discharge Date Admission Date: January 21, 2024 Supervising Physician Co-Signing Physician Notes I personally examined the patient and verified all esposito points of history and exam, discussed case, and agree with decision making with Dr Parmar Feeling better but nervous about going home. Later had a vasovagal event. Vitals noted, in general she is awake and alert pleasant no distress. HEENT normocephalic atraumatic mucous membranes moist. Breathing unlabored no accessory muscle use good effort. Skin shows no rashes no pallor or icterus. Has a small ulceration that is dressed on lateral left leg no tracking erythema. Leg cellulitisimproving. P.o. antibiotics. Still little bit dizzyhopefully home soon. DVT proph - lovenox Subjective Patient was evaluated and found to be AAOx3, afebrile, and in NAD. She states that she has taken 2 doses of her Clindamycin and has not had an allergic reaction to it yet, but is concerned she may get one at home. Denies having SOB, tongue swelling, difficulty breathing, weakness, rashes, flushing, abdominal pain/cramping, or any other symptom. Review of Systems Review of Systems: As per HPI. Physical Exam Physical Exam: General: AAOx3, afebrile, NAD CV: RRR no r/m/g Pulm: CTA bilaterally, normal resp effort, no resp distress GI: soft, nontender, nondistended Ext: (L) lower extremity with improvement in cellulitis (redness seems to be slightly receded within markings), quarter size lesion w/ yellowish drainage on bandage Results & Data Results & Data Vital Signs (Past 12 Hours) Vital Signs Temp Pulse Resp BP BP Pulse Ox O2 Del Method 01/22/24 16:12 36.9 C 109 H 18 143/73 H 96 Room Air 01/22/24 15:17 36.8 C 88 14 112/68 97 Room Air 01/22/24 15:09 88 14 95/50 L 98 Room Air 01/22/24 15:05 74 12 68/44 L 96 Room Air 01/22/24 09:50 147/70 H 01/22/24 08:00 Room Air 01/22/24 06:21 36.5 C 84 16 127/71 92 Room Air Resident Activity Tracking Resident Involvement: Resident Care Provided Care Provided: Adult Hospital Medicine (2) Type 2 diabetes mellitus Diabetes mellitus complication status: without complication Diabetes mellitus terminal operator insulin use: with terminal operator use Qualified Code(s): E11.9 - Type 2 diabetes mellitus without complications; Z79.4 - half-way (current) use of insulin (4) HTN (hypertension) Hypertension type: essential hypertension Qualified Code(s): I10 - Essential (primary) hypertension
[2024-01-22] MEDS: LACTATED RINGER'S 1,000 ML IV SCH (17:33)
--- NOTE | 2024-01-22 18:51 | Billing Data ---
Date of Service January 22, 2024 Coding Level of Care Code 41200 SUB INP/OBS CARE
[2024-01-22] MEDS: diphenhydrAMINE Capsule 25 MG CAP PO ONE (21:10)
--- NOTE | 2024-01-22 21:15 | Communication Note ---
Date of Service: January 22, 2024 Pt with increased oxygen requirement to 2L, tachycardic to low 100s, febrile. Repeat labs ordered with leukocytosis to 17, creatine from 1.09 to 1.34. On exam lungs clear to auscultation B/L, heart with RRR no murmur, area of cellulitis continues to receded from original markings. Repeat CXR without consolidation consistent with PNA per my read. Ordered CT chest to look further for PNA, no signs of PNA on CT. Denies urinary symptoms. Meets SIRs criteria with leukocytosis, tachycardia, fever. Fluid resuscitation per sepsis guidelines with 1.5L. Restart daptomycin. Will add cefepime for gram negative coverage; noted allergies- has received cefepime in the past without issue. Repeat blood cultures pending. Procal and lactate pending.
[2024-01-22] MEDS: FAMOTIDINE 20 MG TAB PO ONE (21:52)
[2024-01-22 23:12] LABS: Hematocrit (blood only) 33.4 % (37.0-47.0); Hemoglobin 10.9 g/dl (12.0-16.0); Mean Corpuscular Hemoglobin 30.4 pg (25.0-34.0); Mean Corpuscular Hgb Conc 32.6 g/dL (32.0-36.0); Mean Platelet Volume 9.5 fL (9.4-12.4); Platelet Count 210 K/uL (130-400); RDW Coefficient of Variation 13.6 % (11.5-14.5); Red Blood Count 3.59 M/uL (4.20-5.40); White Blood Count 17.29 K/ul (4.8-10.8)
[2024-01-22 23:27] LABS: Albumin Globulin Ratio 1.3 (0.9-2); Albumin Level 3.3 gm/dl (3.4-5.0); BUN Creatinine Ratio 23.9 (10-20); Bilirubin,Total 0.7 mg/dl (0.2-1.0); Calcium 8.3 mg/dl (8.6-10.3); Creatinine Clr Calc Pharmacy 45.1 ml/min; Est GFR (African American) 44.8 ml/min; Est GFR (Non-African American) 38.7 ml/min; Globulin 2.5 gm/dl (2.5-4.0); Magnesium 1.7 mg/dl (1.7-2.4); Total Protein 5.8 gm/dl (6.0-8.3)
[2024-01-22 23:28] LABS: Basophils # (auto) 0.03 K/uL (0.00-0.20); Basophils % (auto) 0.2 %; Eosinophils # (auto) 0.08 K/uL (0.00-0.50); Eosinophils % (auto) 0.5 %; Immature Granulocytes % (auto) 0.6 %; Lymphocytes # (auto) 0.11 K/uL (1.20-3.40); Lymphocytes % (auto) 0.6 %; Monocytes # (auto) 0.51 K/uL (0.11-0.59); Monocytes % (auto) 2.9 %; Neutrophils # (auto) 16.46 K/uL (1.40-6.50); Neutrophils % (auto) 95.2 %; RBC Morphology Unremarkable
[2024-01-23] MEDS ORDERED: LACTATED RINGER'S 500 ML IV ONE (01:50)
[2024-01-23] MEDS: LACTATED RINGER'S 1,000 ML IV SCH (02:27)
--- NOTE | 2024-01-23 02:35 | CT Scan Report ---
Exam(s): CT CHEST Without Contrast EXAM: CT Chest Without Intravenous Contrast CLINICAL HISTORY: Reason for exam: Concern for pneumonia. TECHNIQUE: Axial computed tomography images of the chest without intravenous contrast. CTDI is 28 mGy and DLP is 787 mGy-cm. Automated exposure control was utilized for the study. A dose lowering technique was utilized adhering to the principles of ALARA. COMPARISON: CTA chest 10/24/21 FINDINGS: Lungs: Linear band of subsegmental atelectasis in the lower lobes. No consolidation or mass. Pleural space: Unremarkable. No pleural effusion or pneumothorax. Heart: Coronary artery atherosclerosis, aortic valvular calcification, and mitral annular calcification. No cardiomegaly or pericardial effusion. Bones/joints: Unremarkable. No acute fracture or dislocation. Soft tissues: Stable cystic lesion in the posterior midline soft tissues of the upper back measuring up to 7.7 cm, possibly a sebaceous cyst. Vasculature: Calcified thoracic aorta without aneurysm. Enlarged main pulmonary artery suggesting pulmonary arterial hypertension. Lymph nodes: Unremarkable. No adenopathy. Liver: Hepatomegaly. Gallbladder and bile ducts: Cholecystectomy. Spleen: Splenomegaly. Tubes, lines and devices: Loop recorder implanted in the anterior left chest wall. IMPRESSION: Electronically signed by: Karrie aCstillo M.D. 01/23/24 02:35 AM
[2024-01-23] MEDS: CEFEPIME 2,000 MG in SYRINGE 0 ML IV SCH (05:03)
[2024-01-23] MEDS: DAPTOmycin 475 MG in SYRINGE 0 ML IV SCH (05:14)
--- NOTE | 2024-01-23 06:50 | XRay Report ---
XR chest 1V portable CLINICAL HISTORY: Increased Oxygen Requirement COMPARISON STUDY: Chest radiograph January 19, 2024. Chest CT October 24, 2021. FINDINGS: There is no pneumothorax or pleural effusion. Lung volumes are mildly diminished. Linear le ft basilar densities represent atelectasis. Electronic device projects over the left chest. There is mild cardiomegaly without evidence for pulmonary edema. IMPRESSION: No acute cardiopulmonary findings. ACT 112: Negative or not required by law. Electronically signed by: Dell Parkinson M.D. 01/23/2024 6:48 AM
[2024-01-23 07:57] LABS: Hematocrit (blood only) 36.5 % (37.0-47.0); Hemoglobin 11.7 g/dl (12.0-16.0); Mean Corpuscular Hemoglobin 30.1 pg (25.0-34.0); Mean Corpuscular Hgb Conc 32.1 g/dL (32.0-36.0); Mean Corpuscular Volume 93.8 fL (80.0-100.0); Mean Platelet Volume 9.4 fL (9.4-12.4); Platelet Count 196 K/uL (130-400); RDW Coefficient of Variation 13.9 % (11.5-14.5); RDW Standard Deviation 47.5 fL (36.4-46.3); Red Blood Count 3.89 M/uL (4.20-5.40); White Blood Count 15.03 K/ul (4.8-10.8)
[2024-01-23 08:14] LABS: Albumin Globulin Ratio 1.3 (0.9-2); Albumin Level 3.3 gm/dl (3.4-5.0); BUN Creatinine Ratio 21.8 (10-20); Bilirubin,Total 1.3 mg/dl (0.2-1.0); Calcium 8.7 mg/dl (8.6-10.3); Creatinine Clr Calc Pharmacy 41.3 ml/min; Est GFR (African American) 40.1 ml/min; Est GFR (Non-African American) 34.6 ml/min; Globulin 2.6 gm/dl (2.5-4.0); Magnesium 1.7 mg/dl (1.7-2.4); Potassium 4.3 mmol/L (3.5-5.1); Total Protein 5.9 gm/dl (6.0-8.3)
[2024-01-23 08:40] LABS: Basophils # (auto) 0.02 K/uL (0.00-0.20); Basophils % (auto) 0.1 %; Eosinophils % (auto) 1.3 %; Immature Granulocytes # (auto) 0.08 K/uL (0.01-0.20); Immature Granulocytes % (auto) 0.5 %; Lymphocytes # (auto) 0.16 K/uL (1.20-3.40); Lymphocytes % (auto) 1.1 %; Monocytes # (auto) 0.62 K/uL (0.11-0.59); Monocytes % (auto) 4.1 %; Neutrophils # (auto) 13.95 K/uL (1.40-6.50); Neutrophils % (auto) 92.9 %; Polychromasia 1+
[2024-01-23 10:13] LABS: Appearance Urine Cloudy (Clear); Bacteria Urine Automated 2+ (None Seen); Bilirubin Urine 1+ (Negative); Blood Urine Negative (Negative); Color Urine Dark Yellow; Glucose Urine UA Negative (Negative); Ketones Urine Trace (Negative); Leukocyte Esterase Urine Negative (Negative); Nitrite Urine Negative (Negative); Protein Urine 1+ (Negative); Specific Gravity Urine 1.025 (1.000-1.030); Urobilinogen Urine Negative (Negative); WBC Urine Automated 0-5 /hpf (0-5); pH Urine 5.5 (4.5-7.5)
--- NOTE | 2024-01-23 10:41 | Hospitalist Progress Note ---
Date of Service January 23, 2024 Assessment & Plan (1) Dizziness: Plan: - Improved after initiation of Meclizine - Seems to be related to BPPV - Continue Meclizine prn (2) Type 2 diabetes mellitus: Plan: - Stable - Hgb A1c from 01/19/24 was 7.3% - Home insulin on hold - Continue SSI (3) Paroxysmal supraventricular tachycardia: Plan: - Stable. - Continue home meds (4) HTN (hypertension): Plan: - Stable. - Continue home meds (5) Cellulitis: Plan: - Present in left lateral calf - Possible due to bug bite (mosquito versus spider)? - No leukocytosis and afebrile - S/p 3 days of Daptomycin with improvement of cellulitis. - Yesterday trial of Clindamycin 300mg Q6h started given her history of allergies to multiple antibiotics, and tolerated well - Antibiotic therapy changed to cefepime/daptomycin after patient met SIRS criteria last night to broaden coverage, as detailed below. (6) Vasovagal episode: Plan: - Nursing notified patient had gone to restroom and was straining, after which she felt sweaty and almost had a syncopal episode. BP at this time was 68/44 which improved to 112/86 after laying back down. - Patient states that she had felt sweaty and had a "funny feeling in her stomach" and then she noted her vision become blurry - Orthostatics positive - Likely vasovagal episode versus orthostatic hypotension. - No recurrence - Continue IVF and encouraging PO intake (7) Sepsis: Plan: - Patient with new fevers + tachycardia + leukocytosis of 17 last night - Source is not certain Wound as a source is unlikely given improvement of wound since her admission; Wound culture from 01/19/24 showing MSSA, H. parainfluenza, and Prob. miguel angel Gram positive cocci Lungs are CTA on exam and CXR not showing signs of pneumonia, which makes pulmonary source unlikely Has had occasional episodes of diarrhea (3 yesterday, 1 today) without abdominal pain; low suspicion that this is the source U/A appears infected, although patient is asymptomatic; Urine culture pending Lyme screen from 01/19/24 negative, but keep in mind possible tick-borne illness as a cause - Will treat with Cefepime/Daptomycin for now considering her sepsis may have come from urinary source - Blood cultures pending - Monitor am labs Plan VTE ppx: Lovenox IVF: LR @ 100 cc/hr Diet: DM-II Code Status: DNR/DNI Admission and Anticipated Discharge Date Admission Date: January 21, 2024 Supervising Physician Co-Signing Physician Notes I personally examined the patient and verified all esposito points of history and exam, discussed case, and agree with decision making with Dr Parmar Feeling better than earlier. No chest pain or shortness of breath. No abdominal paindid have some loose stools but only once last night and once earlier today and no belly pain. Leg wound healing. No dysuria. Vitals noted, in general she is awake and alert pleasant no distress. HEENT normocephalic atraumatic mucous membranes moist. Breathing unlabored no accessory muscle use good effort. Abdomen soft nondistended nontender no masses organomegaly. No tracking erythema on her skin. Neuro without focal deficits. Sepsissource not entirely clearurine certainly looks positive on UA, although she lacks urinary symptoms. At the same time, does not appear to have any new/worse cellulitis, no new pneumonia, no C. difficile; blood cultures are pending, and of course in this region tickborne illness always needs to be on the differential. At this point, with it being the most common "offender" possible in her differentialtreating empirically as for a urinary tract infection with sepsis, awaiting cultures. If she fails to improve, then would definitely need to consider tickborne illness, but typically tickborne illnesses that lead to an abrupt septic picture are more rosanne to anaplasmosis or babesiosis where there is leukopenia rather than leukocytosis. DVT prophylaxisLovenox Subjective Patient was evaluated and found to be AAOx3, afebrile, and in NAD. Night resident notified patient had developed fevers, tachycardia at night. No localizing symptoms other than maybe a dry cough and occasional episodes of diarrhea yesterday plus one today, and some SOB with exertion. Denies having chest pain, weakness, flushing, abdominal pain/cramping, dysuria, urinary urgency or frequency, or any other symptom. Review of Systems Review of Systems: As per HPI. Physical Exam Physical Exam: General: AAOx3, afebrile, NAD CV: RRR no r/m/g Pulm: CTA bilaterally, normal resp effort, no resp distress GI: soft, nontender, nondistended Ext: (L) lower extremity with improvement in cellulitis (redness seems to be slightly receded within markings), quarter size lesion w/ yellowish drainage on bandage Results & Data Results & Data Vital Signs (Past 12 Hours) Vital Signs Temp Pulse Pulse Resp BP BP Pulse Ox 01/23/24 08:32 01/23/24 07:10 109 H 01/23/24 07:07 38.1 C H 115 H 18 121/53 L 93 01/23/24 02:26 36.8 C 104 H 18 110/62 95 01/23/24 01:18 38.3 C H 104 H 20 108/63 95 01/23/24 00:21 O2 Del Method O2 Flow Rate 01/23/24 08:32 Nasal Cannula 1 01/23/24 07:10 01/23/24 07:07 Nasal Cannula 2 01/23/24 02:26 Nasal Cannula 2 01/23/24 01:18 Nasal Cannula 2 01/23/24 00:21 Nasal Cannula 2 Resident Activity Tracking Resident Involvement: Resident Care Provided Care Provided: Adult Hospital Medicine (2) Type 2 diabetes mellitus Diabetes mellitus complication status: without complication Diabetes mellitus group home insulin use: with moth exterminator use Qualified Code(s): E11.9 - Type 2 diabetes mellitus without complications; Z79.4 - [facility] (current) use of insulin (4) HTN (hypertension) Hypertension type: essential hypertension Qualified Code(s): I10 - Essential (primary) hypertension
--- NOTE | 2024-01-23 14:11 | Ultrasound Report ---
ABDOMINAL ULTRASOUND, RIGHT UPPER QUADRANT HISTORY: elevated LFTs. COMPARISON: Abdomen and pelvis CT 09/21/2008. FINDINGS: Pancreas: The pancreatic tail is obscured by overlying bowel gas. The remaining portions of the pancr eas are within normal limits. There is a 3.0 x 2.1 x 2.4 cm hypoechoic focus adjacent to the pancreat ic head. This could represent a mildly enlarged lymph node or cystic lesion adjacent to the pancreas. Liver: Unremarkable. Gallbladder: The gallbladder is surgically absent. CBD: 5 mm Right kidney: No hydronephrosis. Mild cortical thinning which is likely age-related. IMPRESSION: 1. There is a 3.0 x 2.1 x 2.4 cm hypoechoic focus adjacent to the pancreatic head. This could represe nt a mildly enlarged lymph node or cystic lesion adjacent to the pancreas. Follow-up nonemergent cont rast-enhanced abdominal CT recommended for further evaluation. 2. Prior cholecystectomy prior ACT 112: Positive. There are findings on this exam that require communication between the performing entity and the patient following Patient Test Result Information Act ([place] Act 112) guidelines. Electronically signed by: Abdullahi Whyte M.D. 01/23/2024 2:09 PM
--- NOTE | 2024-01-23 16:18 | Electrocardiogram Report ---
Test Reason : Blood Pressure : / mmHG Vent. Rate : 121 BPM Atrial Rate : 121 BPM P-R Int : 000 ms QRS Dur : 142 ms QT Int : 334 ms P-R-T Axes : 008 -14 -12 degrees QTc Int : 474 ms Sinus tachycardia Right bundle branch block Abnormal ECG When compared with ECG of 18-JAN-2024 14:37, Vent. rate has increased BY 47 BPM Nonspecific T wave abnormality no longer evident in Anterolateral leads Confirmed by Jorge Luis Stringer ([id number]) on 01/23/2024 4:18:02 PM Referred By: REFERRED SELF Confirmed By:Jorge Luis Stringer
--- NOTE | 2024-01-23 16:53 | Billing Data ---
Date of Service January 23, 2024 Coding Level of Care Code 51147 SUB INP/OBS CARE
[2024-01-24 08:02] LABS: Hematocrit (blood only) 32.6 % (37.0-47.0); Hemoglobin 10.3 g/dl (12.0-16.0); Mean Corpuscular Hemoglobin 29.6 pg (25.0-34.0); Mean Corpuscular Hgb Conc 31.6 g/dL (32.0-36.0); Mean Corpuscular Volume 93.7 fL (80.0-100.0); Mean Platelet Volume 9.7 fL (9.4-12.4); Platelet Count 162 K/uL (130-400); RDW Standard Deviation 47.8 fL (36.4-46.3); Red Blood Count 3.48 M/uL (4.20-5.40); White Blood Count 14.68 K/ul (4.8-10.8)
[2024-01-24 08:17] LABS: Albumin Globulin Ratio 1.1 (0.9-2); Albumin Level 2.7 gm/dl (3.4-5.0); BUN Creatinine Ratio 25.2 (10-20); Calcium 8.2 mg/dl (8.6-10.3); Creatinine Clr Calc Pharmacy 37.3 ml/min; Est GFR (African American) 35.4 ml/min; Est GFR (Non-African American) 30.5 ml/min; Globulin 2.4 gm/dl (2.5-4.0); Potassium 4.1 mmol/L (3.5-5.1); Total Protein 5.1 gm/dl (6.0-8.3)
[2024-01-24 08:43] LABS: Basophils # (auto) 0.02 K/uL (0.00-0.20); Basophils % (auto) 0.1 %; Eosinophils # (auto) 0.29 K/uL (0.00-0.50); Immature Granulocytes # (auto) 0.07 K/uL (0.01-0.20); Immature Granulocytes % (auto) 0.5 %; Lymphocytes # (auto) 0.38 K/uL (1.20-3.40); Lymphocytes % (auto) 2.6 %; Monocytes # (auto) 0.68 K/uL (0.11-0.59); Monocytes % (auto) 4.6 %; Neutrophils # (auto) 13.24 K/uL (1.40-6.50); Neutrophils % (auto) 90.2 %
[2024-01-24] MEDS: diphenhydrAMINE Capsule 25 MG CAP PO ONE (09:44)
[2024-01-24] MEDS: ALBUT/IPRATROP 3MG/0.5MG NEB 3 ML VIAL NEB STA (09:47)
[2024-01-24] MEDS ORDERED: ALBUTEROL HFA 8 GM INHALER INH PRN (10:25)
--- NOTE | 2024-01-24 10:40 | Hospitalist Progress Note ---
Date of Service January 24, 2024 Assessment & Plan (1) Dizziness: Plan: - Improved after initiation of Meclizine - Seems to be related to BPPV - Continue Meclizine prn (2) Type 2 diabetes mellitus: Plan: - Stable - Hgb A1c from 01/19/24 was 7.3% - Home insulin on hold - Continue SSI (3) Paroxysmal supraventricular tachycardia: Plan: - Stable. - Continue home meds (4) HTN (hypertension): Plan: - Stable. - Home meds on hold due to hypotension (5) Cellulitis: Plan: - Present in left lateral calf - Possible due to bug bite (mosquito versus spider)? - No leukocytosis and afebrile - S/p 3 days of Daptomycin with improvement of cellulitis. - s/p 1 day of Clindamycin - Cefepime on hold due to current status for which partial anaphylaxis cannot be r/o (although rare/ low suspicion) - Continue Daptomycin (6) Vasovagal episode: Plan: - Almost fainted in bathroom on 01/22/24 and BP was found to be low, but corrected afterwards - Orthostatics positive - Likely vasovagal episode versus orthostatic hypotension. - Gave fluid bolus, and then will continue IVF and encouraging PO intake (7) Sepsis: Plan: - Patient with new fevers + tachycardia + leukocytosis of 17 on 01/22/24 evening - Leukocytosis with some improvement (14.68 in am labs) and no fevers since yesterday - Source is not certain Wound as a source is unlikely given improvement of wound since her admission; Wound culture from 01/19/24 showing MSSA, H. parainfluenza, and Anaerobic gram positive cocci Lungs are CTA on exam and CXR not showing signs of pneumonia; repeat CXR today due to SOB also negative Has had occasional episodes of diarrhea without abdominal pain; low suspicion that this is the source U/A appears infected, although patient is asymptomatic; Urine culture pending Lyme screen from 01/19/24 negative, but keep in mind possible tick-borne illness as a cause - Cefepime on hold due to low concern for possible partial anaphylactic reaction - Blood cultures negative for now - Monitor for localizing symptoms - Monitor am labs (8) Intertrigo: Plan: - New rash under bilateral breasts where environment is humid. Rash is erythematous, pruritic, tender, and with satellite lesions - Likely intertrigo - Will order ketoconazole 2% cream daily for management - Keep area as dry as possible (9) Shortness of breath: Plan: - Patient with worsening SOB and need for NC - has hx of viral pneumonia when she had COVID a while back - Gave nebulizer treatment which seemed to help with SOB and wheezing some, but not completely - CXR ordered today and did not show pulmonary edema, pleural effusions, or consolidations to suggest pneumonia - D-dimer elevated at 2720. Possible this is due to current infection, but given worsening SOB from this morning and eps of tachycardia, cannot r/o PE. Due to KEESHA, will hold off on CTA (Cr this am 1.6), but will change Lovenox to Eliquis 10mg bid to treat possible PE and re-visit CTA once renal function improves. - Continue nebs prn + albuterol prn + Breo Ellipta daily; if wheezing persists consider adding IV Solumedrol for possible reactive airway disease (10) Pulmonary embolism: Plan: - Possible PE given elevated d-dimer and worsening SOB - As above. Plan VTE ppx: Eliquis IVF: None Diet: DM-II Code Status: DNR/DNI Admission and Anticipated Discharge Date Admission Date: January 21, 2024 Supervising Physician Co-Signing Physician Notes I personally examined the patient and verified all esposito points of history and exam, discussed case, and agree with decision making with Dr Parmar generally feeling better. Still a bit short of breath. Better than earlier today. Rash not really changing or worsening, still not really itchy or hive like; no abdominal pain no dysuria no cough vitals noted, in general she is awake and alert initially appears to have a degree of dyspnea, but this actually improves as the conversation unfolds and she has no conversational dyspnea. Lungs show faint wheeze upper left, clear in the middle, faint rales bibasilarDr. Ghulam notes this as well and notes that it is actually much improved from earlier this morning. skin rash none specific macular and may be maculopapularno wheals nonpruritic. EKG sinus tach with frequent ectopy. Sepsis And possibly a degree of an allergic milieu given her wheezingoverall seems to be stabilizing. Given hypoxia with clear lungsDr. Ghulam initiated anticoagulation given that we are currently not able to obtain CT angio and would not be able to obtain a VQ scan in a timely fashionwill continue anticoagulation until creatinine improves enough to be able to formally check for PE with CT angio. Continue gram-positive coverage, given concern on allergic reaction continue supportive care and close vigilance. DVT prophylaxisLovenox --> escalate to full dose anticoagulation for concern on possible PE pending ability to get CT angio Subjective Patient AAOx4, afebrile at the time of evaluation, and in NAD. She states she feels more SOB and difficulty "getting a breath out" and appears to be having slightly increased work of breathing. Denies associated chest pain or lightheadedness. She als refers having "an itchy face" and a rash under both of her breasts that is also pruritic and slightly tender. Denies other symptoms such as palpitations, abdominal pain, or weakness. Review of Systems Review of Systems: As per HPI. Physical Exam Physical Exam: General: AAOx3, afebrile, NAD CV: RRR no r/m/g Pulm: wheeze throughout, slight increase in work of breathing, no accessory muscle use, no respiratory distress GI: soft, nontender, nondistended Skin: sweat accumulated under bilateral breasts with redness and raised rash in this region with satellite lesions, facial flushing, punctate rash in bilateral thighs but no other region Ext: (L) lower extremity with improvement in cellulitis, quarter size lesion w/ yellowish drainage on bandage Results & Data Results & Data Vital Signs (Past 12 Hours) Vital Signs Temp Pulse Pulse Resp BP Pulse Ox O2 Del Method 01/24/24 09:47 107 H 19 98 Nasal Cannula 01/24/24 09:22 37.4 C 104 H 24 100/55 L 91 Room Air 01/24/24 07:46 37.7 C H 88 20 113/52 L 95 Nasal Cannula 01/24/24 07:35 Nasal Cannula 01/24/24 07:00 105 H 01/24/24 03:42 37.2 C 100 H 18 100/58 L 96 Nasal Cannula 01/23/24 23:37 115 H O2 Flow Rate 01/24/24 09:47 2 01/24/24 09:22 01/24/24 07:46 1 01/24/24 07:35 2 01/24/24 07:00 01/24/24 03:42 2 01/23/24 23:37 Resident Activity Tracking Resident Involvement: Resident Care Provided Care Provided: Adult Hospital Medicine (2) Type 2 diabetes mellitus Diabetes mellitus complication status: without complication Diabetes mellitus salvage determiner insulin use: with assisted use Qualified Code(s): E11.9 - Type 2 diabetes mellitus without complications; Z79.4 - senior living (current) use of insulin (4) HTN (hypertension) Hypertension type: essential hypertension Qualified Code(s): I10 - Essential (primary) hypertension
--- NOTE | 2024-01-24 11:05 | XRay Report ---
XR chest 2V PA/lateral CLINICAL HISTORY: Shortness of breath. COMPARISON STUDY: Chest radiograph January 22, 2024. Chest CT January 23, 2024. FINDINGS: Low lung volumes are unchanged. There is no pneumothorax or pleural fusion. Linear left bas ilar density represents atelectasis. There is no consolidation to suggest pneumonia. Pulmonary vascul arity is normal. Cardiomediastinal silhouette is stable. Cardiomegaly is unchanged. IMPRESSION: No acute cardiopulmonary findings. No change in appearance of the chest. ACT 112: Negative or not required by law. Electronically signed by: Dell Parkinson M.D. 01/24/2024 11:04 AM
[2024-01-24] MEDS: KETOCONAZOLE 2% CR 15 GM TUBE EXT SCH (11:28)
[2024-01-24] MEDS: LACTATED RINGER'S 1,000 ML IV SCH (11:44)
[2024-01-24 12:30] LABS: Base Excess ABG -2.5 mEq/L (-9-1.8); HCO3 ABG 23 mmol/L (19-24); PCO2 ABG 39 mmHg (35-46); PO2 ABG 106 mmHg (80-95); pH ABG 7.37 (7.35-7.45)
[2024-01-24 12:35] LABS: Allen Test Pos (Pos)
[2024-01-24] MEDS: LACTATED RINGER'S 1,000 ML IV ONE (13:17)
[2024-01-24 13:54] LABS: D Dimer 2720 ug/L FEU (0-500)
--- NOTE | 2024-01-24 19:25 | Billing Data ---
Date of Service January 24, 2024 Coding Level of Care Code 97176 SUB INP/OBS CARE
--- NOTE | 2024-01-24 19:27 | Billing Data ---
Date of Service January 24, 2024 Coding Level of Care Code 09164 SUB INP/OBS CARE
[2024-01-24] MEDS: APIXABAN 5 MG TABLET PO SCH (20:46)
[2024-01-24] MEDS: methylPREDNISolone 40 MG in SYRINGE 0 ML IV SCH (20:46)
[2024-01-24] MEDS ORDERED: methylPREDNISolone 10 mg/mL (For Ped Dose < 7mg) IV SCH (21:00)
[2024-01-24] MEDS: MAGNESIUM SULFATE / D5W 1 GM/100 ML BAG IV SCH (23:30)
[2024-01-25 06:14] LABS: Hematocrit (blood only) 33.3 % (37.0-47.0); Hemoglobin 10.6 g/dl (12.0-16.0); Mean Corpuscular Hgb Conc 31.8 g/dL (32.0-36.0); Mean Corpuscular Volume 94.3 fL (80.0-100.0); Mean Platelet Volume 9.9 fL (9.4-12.4); Platelet Count 168 K/uL (130-400); RDW Standard Deviation 48.5 fL (36.4-46.3); Red Blood Count 3.53 M/uL (4.20-5.40); White Blood Count 17.15 K/ul (4.8-10.8)
[2024-01-25 06:38] LABS: Albumin Globulin Ratio 1.1 (0.9-2); Albumin Level 2.7 gm/dl (3.4-5.0); BUN Creatinine Ratio 27.4 (10-20); Bilirubin,Total 0.8 mg/dl (0.2-1.0); Calcium 7.7 mg/dl (8.6-10.3); Creatinine Clr Calc Pharmacy 36.3 ml/min; Est GFR (African American) 34.1 ml/min; Est GFR (Non-African American) 29.4 ml/min; Globulin 2.4 gm/dl (2.5-4.0); Potassium 4.4 mmol/L (3.5-5.1); Total Protein 5.1 gm/dl (6.0-8.3)
[2024-01-25 06:39] LABS: Basophils # (auto) 0.03 K/uL (0.00-0.20); Basophils % (auto) 0.2 %; Dohle Bodies 1+; Eosinophils # (auto) 0.07 K/uL (0.00-0.50); Eosinophils % (auto) 0.4 %; Immature Granulocytes % (auto) 0.6 %; Lymphocytes # (auto) 0.25 K/uL (1.20-3.40); Lymphocytes % (auto) 1.5 %; Monocytes # (auto) 0.37 K/uL (0.11-0.59); Monocytes % (auto) 2.2 %; Neutrophils # (auto) 16.33 K/uL (1.40-6.50); Neutrophils % (auto) 95.1 %; Polychromasia 1+
[2024-01-25] MEDS: FLUTICASONE/VILANTEROL 200/25MCG 14 PUFFS/INHALER INH SCH (09:04)
[2024-01-25] MEDS: diphenhydrAMINE Capsule 25 MG CAP PO ONE (10:24)
[2024-01-25 12:17] LABS: Magnesium 2.2 mg/dl (1.7-2.4)
[2024-01-25 12:32] LABS: Thyroid Stimulating Hormone 0.817 uIu/ml (0.300-4.500)
--- NOTE | 2024-01-25 12:45 | Hospitalist Progress Note ---
Date of Service January 25, 2024 Assessment & Plan (1) Dizziness: Plan: - Improved after initiation of Meclizine - Seems to be related to BPPV - Continue Meclizine prn (2) Type 2 diabetes mellitus: Plan: - Stable - Hgb A1c from 01/19/24 was 7.3% - Home insulin on hold - Continue SSI adjusted for steroid use (3) Paroxysmal supraventricular tachycardia: Plan: - Stable. - Continue home meds (4) HTN (hypertension): Plan: - Stable. - Home meds on hold due to hypotension (5) Cellulitis: Plan: - Present in left lateral calf - Possible due to bug bite (mosquito versus spider)? - No leukocytosis and afebrile - S/p 3 days of Daptomycin with improvement of cellulitis. - s/p 1 day of Clindamycin - Cefepime on hold due to current status for which partial anaphylaxis cannot be r/o (although rare/ low suspicion) - Continue Daptomycin (6) Vasovagal episode: Plan: - Almost fainted in bathroom on 01/22/24 and BP was found to be low, but corrected afterwards - Orthostatics positive - Likely vasovagal episode versus orthostatic hypotension. - Continue IVF and encouraging PO intake (7) Sepsis: Plan: - Patient with new fevers + tachycardia + leukocytosis of 17 on 01/22/24 evening - Leukocytosis with some improvement (14.68 in am labs) and no fevers since yesterday - Source is not certain Wound as a source is unlikely given improvement of wound since her admission; Wound culture from 01/19/24 showing MSSA, H. parainfluenza, and Anaerobic gram positive cocci Lungs are CTA on exam and CXR not showing signs of pneumonia; repeat CXR today due to SOB also negative Has had occasional episodes of diarrhea without abdominal pain; low suspicion that this is the source U/A appears infected, although patient is asymptomatic; Urine culture growing Yeast (not Jenifer albicans) Lyme screen from 01/19/24 negative, but keep in mind possible tick-borne illness as a cause - Cefepime on hold due to low concern for possible partial anaphylactic reaction - Blood cultures negative for now - Monitor for localizing symptoms - Monitor am labs (8) Intertrigo: Plan: - New rash under bilateral breasts where environment is humid. Rash is erythematous, pruritic, tender, and with satellite lesions - Likely intertrigo - Will order ketoconazole 2% cream daily for management - Keep area as dry as possible (9) Viral pneumonia: Plan: - Patient with worsening SOB and need for NC - has hx of viral pneumonia when she had COVID a while back, and consider current respiratory symptoms may be related to another episode of viral pneumonia - CXR ordered today and did not show pulmonary edema, pleural effusions, or consolidations to suggest pneumonia - Elevated D-dimer (2700s); may be due to sepsis but given resp sxs, cannot r/o PE; Treat with Eliquis 10mg bid until renal function improves and CTA an be done - Continue nebs prn + albuterol prn + Breo Ellipta daily + Solumedrol 40mg IV da marylu (10) Shortness of breath: Plan: - As above. (11) Pulmonary embolism: Plan: - Possible PE given elevated d-dimer and worsening SOB - As above. (12) Atrial fibrillation: Plan: - New finding on telemetry - Patient without known history of this - Currently asymptomatic - Suspect this may be related to age + current illness - Will order TSH and TTE to r/o other causes of a-fib. Consider sleep study after discharge to r/o sleep apnea. (13) KEESHA (acute kidney injury): Plan: - Creatinin at the time of admission was 0.97 - Am labs showing Cr of 1.68 - Suspect pre-renal - Continue IVF and PO hydration - Monitor am labs Plan VTE ppx: Eliquis IVF: LR @ 150 cc/hr Diet: DM-II Code Status: DNR/DNI Admission and Anticipated Discharge Date Admission Date: January 21, 2024 Supervising Physician Co-Signing Physician Notes I personally examined the patient and verified all esposito points of history and exam, discussed case, and agree with decision making with Dr Parmar overall feeling better but does have a new rash. A little bit itchy. All over her body. Breathing better. No new complaints. Vitals noted, in general she is awake and alert pleasant no distress. HEENT normocephalic atraumatic mucous membranes moist. Breathing unlabored lungs overall clear no rales rhonchi or wheezes good effort no accessory muscle use. Skin shows a diffuse maculopapular rash Sepsis after further review, sepsis appears to be to a viral infection not present on admission. We have continued her on antibiotics for her leg infection to the point that appears no further antibiotics are necessary. Her viral infection is probably accounting for the wheezing and the rashesbut nothing appears to be consistently in an allergic male you. Continue supportive care and symptomatic treatment. Hopefully home soon. A-fib/RVRecho reassuring, rate control/anticoagulation. PE has been considered as it relates to her tachycardia and breathing issuesat the same time, she is requiring anticoagulation for her A-fib now regardless. AKIhighly likely prerenalIV fluids and follow. DVT prophylaxisanticoagulated Subjective Patient AAOx4, afebrile at the time of evaluation, and in NAD. Improvement in SOB, but still present. States she has itchy face and arms, and has noticed a rash in her arms. No chest pain, palpitations, weakness, or any other symptom. Review of Systems Review of Systems: As per HPI. Physical Exam Physical Exam: General: AAOx3, afebrile, NAD CV: RRR no r/m/g Pulm: wheeze throughout but improved compared to yesterday's exam, no accessory muscle use, no respiratory distress GI: soft, nontender, nondistended Skin: erythematous rash in bilateral upper extremities and facial flushing Ext: (L) lower extremity with improvement in cellulitis, quarter size lesion w/ yellowish drainage on bandage Results & Data Results & Data Vital Signs (Past 12 Hours) Vital Signs Temp Pulse Pulse Resp BP BP Pulse Ox 01/25/24 11:43 36.7 C 124 H 18 105/46 L 96 01/25/24 09:00 01/25/24 07:51 36.5 C 105 H 18 124/65 95 01/25/24 07:00 125 H 01/25/24 03:34 89 22 109/77 92 01/25/24 02:43 37 C 111 H 20 111/61 95 O2 Del Method O2 Flow Rate 01/25/24 11:43 Nasal Cannula 2 01/25/24 09:00 Nasal Cannula 2 01/25/24 07:51 Nasal Cannula 2 01/25/24 07:00 01/25/24 03:34 Room Air 01/25/24 02:43 Nasal Cannula 2 Resident Activity Tracking Resident Involvement: Resident Care Provided Care Provided: Adult Hospital Medicine (2) Type 2 diabetes mellitus Diabetes mellitus complication status: without complication Diabetes mellitus shelter insulin use: with shelter use Qualified Code(s): E11.9 - Type 2 diabetes mellitus without complications; Z79.4 - long term care phlebotomist (current) use of insulin (4) HTN (hypertension) Hypertension type: essential hypertension Qualified Code(s): I10 - Essential (primary) hypertension
--- NOTE | 2024-01-25 12:56 | Electrocardiogram Report ---
Test Reason : Blood Pressure : / mmHG Vent. Rate : 127 BPM Atrial Rate : 127 BPM P-R Int : 160 ms QRS Dur : 142 ms QT Int : 316 ms P-R-T Axes : 000 -32 -18 degrees QTc Int : 459 ms Sinus tachycardia with frequent , and consecutive Premature ventricular complexes Left axis deviation Right bundle branch block Abnormal ECG When compared with ECG of 22-JAN-2024 20:14, Premature ventricular complexes are now Present Confirmed by Jorge Luis Stringer ([id number]) on 01/25/2024 12:56:24 PM Referred By: REFERRED SELF Confirmed By:Jorge Luis Stringer
--- NOTE | 2024-01-25 13:10 | Electrocardiogram Report ---
Test Reason : Blood Pressure : / mmHG Vent. Rate : 136 BPM Atrial Rate : 067 BPM P-R Int : 000 ms QRS Dur : 144 ms QT Int : 304 ms P-R-T Axes : 000 073 248 degrees QTc Int : 457 ms Undetermined rhythm Non-specific intra-ventricular conduction block Lateral infarct , age undetermined Marked T wave abnormality, consider inferior ischemia Marked T wave abnormality, consider anterior ischemia Abnormal ECG When compared with ECG of 24-JAN-2024 16:06, (unconfirmed) Current undetermined rhythm precludes rhythm comparison, needs review Non-specific intra-ventricular conduction block has replaced Right bundle branch block Lateral infarct is now Present Confirmed by Jorge Luis Stringer ([id number]) on 01/25/2024 1:10:22 PM Referred By: REFERRED SELF Confirmed By:Jorge Luis Stringer
[2024-01-25] MEDS: METOPROLOL TARTRATE 1 MG/ML VIAL IV PRN (14:22)
--- NOTE | 2024-01-25 14:22 | XCELERA ---
[id number]
--- NOTE | 2024-01-25 16:25 | Billing Data ---
Date of Service January 25, 2024 Coding Level of Care Code 73392 SUB INP/OBS CARE
[2024-01-25] MEDS: METOPROLOL TARTRATE 25 MG TAB PO ONE (18:38)
[2024-01-25] MEDS: METOPROLOL TARTRATE 25 MG TAB PO SCH (20:21)
[2024-01-26 06:21] LABS: Hematocrit (blood only) 32.2 % (37.0-47.0); Hemoglobin 10.4 g/dl (12.0-16.0); Mean Corpuscular Hemoglobin 30.3 pg (25.0-34.0); Mean Corpuscular Hgb Conc 32.3 g/dL (32.0-36.0); Mean Corpuscular Volume 93.9 fL (80.0-100.0); Mean Platelet Volume 10.3 fL (9.4-12.4); Platelet Count 195 K/uL (130-400); RDW Coefficient of Variation 14.1 % (11.5-14.5); Red Blood Count 3.43 M/uL (4.20-5.40); White Blood Count 25.09 K/ul (4.8-10.8)
[2024-01-26 06:52] LABS: Albumin Level 2.5 gm/dl (3.4-5.0); Bilirubin,Total 0.6 mg/dl (0.2-1.0); Calcium 7.7 mg/dl (8.6-10.3); Creatinine Clr Calc Pharmacy 42.5 ml/min; Est GFR (African American) 41.1 ml/min; Est GFR (Non-African American) 35.4 ml/min; Globulin 2.4 gm/dl (2.5-4.0); Potassium 4.4 mmol/L (3.5-5.1); Total Protein 4.9 gm/dl (6.0-8.3)
[2024-01-26 06:59] LABS: Basophils # (auto) 0.05 K/uL (0.00-0.20); Basophils % (auto) 0.2 %; Dohle Bodies 1+; Eosinophils # (auto) 0.12 K/uL (0.00-0.50); Eosinophils % (auto) 0.5 %; Immature Granulocytes # (auto) 0.22 K/uL (0.01-0.20); Immature Granulocytes % (auto) 0.9 %; Lymphocytes # (auto) 0.83 K/uL (1.20-3.40); Lymphocytes % (auto) 3.3 %; Neutrophils # (auto) 23.37 K/uL (1.40-6.50); Neutrophils % (auto) 93.1 %
--- NOTE | 2024-01-26 07:22 | Hospitalist Progress Note ---
Date of Service January 26, 2024 Assessment & Plan (1) Dizziness: (2) Type 2 diabetes mellitus: (3) Paroxysmal supraventricular tachycardia: (4) HTN (hypertension): (5) Cellulitis: (6) Vasovagal episode: (7) Sepsis: (8) Intertrigo: (9) Viral pneumonia: (10) Shortness of breath: (11) Pulmonary embolism: (12) Atrial fibrillation: (13) KEESHA (acute kidney injury): Plan 73yo female PMH of HTN, DM2, SVT (loop recorder) HTN initially admitted for dizziness found with BPPV found with cellulitis ans sepsis on unknown reason Sepsis: - Patient with new fevers + tachycardia + leukocytosis -No fevers - Source is not certain Wound as a source is unlikely given improvement of wound since her admission; Wound culture from 01/19/24 showing MSSA, H. parainfluenza, and Anaerobic gram positive cocci Lungs are CTA on exam and CXR not showing signs of pneumonia; repeat CXR today due to SOB also negative Has had occasional episodes of diarrhea without abdominal pain; low suspicion that this is the source U/A appears infected, although patient is asymptomatic; Urine culture growing Yeast (not Jenifer albicans) Lyme screen from 01/19/24 negative, but keep in mind possible tick-borne illness as a cause - Cefepime on hold due to low concern for possible partial anaphylactic reaction - Blood cultures negative for now - Monitor for localizing symptoms - Monitor am labs Dizziness: - Improved after initiation of Meclizine - Seems to be related to BPPV - Continue Meclizine prn Viral pneumonia / end expiratory wheezing - Patient with worsening SOB and need for NC - has hx of viral pneumonia when she had COVID a while back, and consider current respiratory symptoms may be related to another episode of viral pneumonia - CXR (01/23) ordered today: show pulmonary edema, pleural effusions, or consolidations to suggest pneumonia - Elevated D-dimer (2700s); may be due to sepsis but given resp sxs, cannot r/o PE; Treat with Eliquis 10mg bid until renal function improves and CTA an be done - Continue nebs prn + albuterol prn + Breo Ellipta daily + Solumedrol 40mg IV daily Atrial fibrillation: - New finding on telemetry - Patient without known history of this - Currently asymptomatic - Suspect this may be related to age + current illness - Will order TSH and TTE to r/o other causes of a-fib. Consider sleep study afte r discharge to r/o sleep apnea. KEESHA (acute kidney injury): - Creatinine at the time of admission was 0.97 - Am labs showing Cr of 1.44, trending down - Suspect pre-renal - Continue IVF and PO hydration - Monitor am labs Intertrigo: - New rash under bilateral breasts where environment is humid. Rash is erythematous, pruritic, tender, and with satellite lesions - Likely intertrigo - Will order ketoconazole 2% cream daily for management - Keep area as dry as possible Pulmonary embolism: - Possible PE given elevated d-dimer and worsening SOB - As above. Type 2 diabetes mellitus: - Stable - Hgb A1c from 01/19/24 was 7.3% - Home insulin on hold - Continue SSI adjusted for steroid use Paroxysmal supraventricular tachycardia: - Stable. - Continue home meds HTN (hypertension): - Stable. - Home meds on hold due to hypotension Cellulitis - resolved - Present in left lateral calf - Possible due to bug bite (mosquito versus spider)? - Afebrile - S/p 5 days of Daptomycin with improvement of cellulitis. - s/p 1 day of Clindamycin - Cefepime on hold due to current status for which partial anaphylaxis cannot be r/o (although rare/ low suspicion) Vasovagal episode: - Almost fainted in bathroom on 01/22/24 and BP was found to be low, but corrected afterwards - Orthostatics positive - Likely vasovagal episode versus orthostatic hypotension. - Continue IVF and encouraging PO intake Plan VTE ppx: [place] IVF: LR @ 150 cc/hr Diet: DM-II Code Status: DNR/DNI Admission and Anticipated Discharge Date Admission Date: January 21, 2024 Supervising Physician Co-Signing Physician Notes I personally examined the patient and verified all esposito points of history and exam, discussed case, and agree with decision making with Dr Pino Arizmendi feels vaguely off/unsettled. breathing not worse, just not better. rash maybe improving just still quite itchy. Vitals noted, in general she is awake and alert pleasant no distress. HEENT normocephalic atraumatic mucous membranes m oist. Breathing unlabored lungs overall clear no rales rhonchi or wheezes good effort no accessory muscle use. Skin shows a diffuse maculopapular rash clearing/less inflamed. leg ulcer no erythema. Sepsis after further review, sepsis appears to be to a viral infection not present on admission. We have continued her on antibiotics for her leg infection to the point that appears no further antibiotics are necessary. Her viral infection is probably accounting for the wheezing and the rashesbut nothing appears to be consistently in an allergic milieu. Continue supportive care and symptomatic treatment/steroids/nebs. Hopefully home soon. A-fib/RVRecho reassuring, rate control/anticoagulation. PE has been considered as it relates to her tachycardia and breathing issuesat the same time, she is requiring anticoagulation for her A-fib now regardless. AKIhighly likely prerenalIV fluids and follow. BMP now more reassurring DVT prophylaxisanticoagulated Subjective Patient seen this am, she was found alert and oriented in NAD. She refers improvement on her SOB, but still feel her wheezing. No chest pain, palpitations, weakness, or any other symptom. Review of Systems Review of Systems: As per HPI. Physical Exam Physical Exam: General: AAOx3, afebrile, NAD CV: RRR no r/m/g Pulm: end expiratory wheezing, no accessory muscle use, no respiratory distress GI: soft, nontender, nondistended Skin: erythematous rash in bilateral upper extremities and facial flushing Ext: (L) lower extremity with improvement in cellulitis, quarter size lesion w/ yellowish drainage on bandage Results & Data Results & Data Vital Signs (Past 12 Hours) Vital Signs Temp Pulse Pulse Resp BP BP Pulse Ox 01/26/24 05:58 130 H 01/26/24 03:49 37.4 C 70 22 100/58 L 93 01/26/24 00:16 37.1 C 116 H 22 104/57 L 96 01/25/24 23:02 115 H 103/53 L 01/25/24 22:17 106 H 103/53 L 97 01/25/24 22:07 133 H 130/66 01/25/24 21:59 135 H 01/25/24 20:53 138 H 01/25/24 20:30 01/25/24 20:21 37.2 C 137 H 20 129/76 98 O2 Del Method O2 Flow Rate 01/26/24 05:58 01/26/24 03:49 Nasal Cannula 2 01/26/24 00:16 Nasal Cannula 2 01/25/24 23:02 01/25/24 22:17 Nasal Cannula 2 01/25/24 22:07 01/25/24 21:59 01/25/24 20:53 01/25/24 20:30 Nasal Cannula 2 01/25/24 20:21 Nasal Cannula Resident Activity Tracking Resident Involvement: Resident Care Provided Care Provided: Adult Hospital Medicine (2) Type 2 diabetes mellitus Diabetes mellitus complication status: without complication Diabetes mellitus usp insulin use: with usp use Qualified Code(s): E11.9 - Type 2 diabetes mellitus without complications; Z79.4 - terminal block assembler (current) use of insulin (4) HTN (hypertension) Hypertension type: essential hypertension Qualified Code(s): I10 - Essential (primary) hypertension
[2024-01-26] MEDS: diphenhydrAMINE Capsule 25 MG CAP PO ONE (13:12)
--- NOTE | 2024-01-26 14:05 | Billing Data ---
Date of Service January 26, 2024 Coding Level of Care Code 35990 SUB INP/OBS CARE
[2024-01-26] MEDS: CARBOHYDRATES FOR HYPOGLYCEMIA PO PRN (17:05)
[2024-01-26] MEDS: DIGOXIN 0.125 MG TAB PO ONE (18:17)
[2024-01-27 05:57] LABS: Basophils # (auto) 0.03 K/uL (0.00-0.20); Basophils % (auto) 0.2 %; Eosinophils # (auto) 0.05 K/uL (0.00-0.50); Eosinophils % (auto) 0.3 %; Hematocrit (blood only) 32.9 % (37.0-47.0); Hemoglobin 10.4 g/dl (12.0-16.0); Immature Granulocytes # (auto) 0.39 K/uL (0.01-0.20); Immature Granulocytes % (auto) 2.1 %; Lymphocytes % (auto) 5.4 %; Mean Corpuscular Hemoglobin 29.9 pg (25.0-34.0); Mean Corpuscular Hgb Conc 31.6 g/dL (32.0-36.0); Mean Corpuscular Volume 94.5 fL (80.0-100.0); Mean Platelet Volume 10.1 fL (9.4-12.4); Monocytes # (auto) 0.42 K/uL (0.11-0.59); Monocytes % (auto) 2.3 %; Neutrophils % (auto) 89.7 %; Platelet Count 158 K/uL (130-400); RDW Coefficient of Variation 13.9 % (11.5-14.5); RDW Standard Deviation 48.5 fL (36.4-46.3); Red Blood Count 3.48 M/uL (4.20-5.40); White Blood Count 18.59 K/ul (4.8-10.8)
[2024-01-27 06:16] LABS: Albumin Level 2.6 gm/dl (3.4-5.0); BUN Creatinine Ratio 37.5 (10-20); Bilirubin,Total 0.5 mg/dl (0.2-1.0); C Reactive Protein 20.94 mg/dl (0-0.5); Calcium 7.9 mg/dl (8.6-10.3); Creatinine Clr Calc Pharmacy 51.1 ml/min; Est GFR (African American) 51.2 ml/min; Est GFR (Non-African American) 44.2 ml/min; Globulin 2.5 gm/dl (2.5-4.0); Potassium 5.1 mmol/L (3.5-5.1); Total Protein 5.1 gm/dl (6.0-8.3)
--- NOTE | 2024-01-27 07:18 | Hospitalist Progress Note ---
Date of Service January 27, 2024 Assessment & Plan (1) Dizziness: (2) Type 2 diabetes mellitus: (3) Paroxysmal supraventricular tachycardia: (4) HTN (hypertension): (5) Cellulitis: (6) Vasovagal episode: (7) Sepsis: (8) Intertrigo: (9) Viral pneumonia: (10) Shortness of breath: (11) Pulmonary embolism: (12) Atrial fibrillation: (13) KEESHA (acute kidney injury): Plan 73yo female PMH of HTN, DM2, SVT (loop recorder) HTN initially admitted for dizziness found with BPPV found with cellulitis ans sepsis on unknown reason Sepsis: - Patient with new fevers + tachycardia + leukocytosis - Source is not certain Wound as a source is unlikely given improvement of wound since her admission; Wound culture from 01/19/24 showing MSSA, H. parainfluenza, and Anaerobic gram positive cocci Lungs are CTA on exam and CXR not showing signs of pneumonia; repeat CXR today due to SOB also negative Has had occasional episodes of diarrhea without abdominal pain; low suspicion that this is the source U/A appears infected, although patient is asymptomatic; Urine culture growing Yeast (not Jenifer albicans) Lyme screen from 01/19/24 negative, but keep in mind possible tick-borne illness as a cause - Cefepime on hold due to low concern for possible partial anaphylactic reaction - Blood cultures negative for now Viral pneumonia / end expiratory wheezing - Patient with worsening SOB and need for NC - has hx of viral pneumonia when she had COVID a while back, and consider current respiratory symptoms may be related to another episode of viral pneumonia - CXR (01/23) ordered today: show pulmonary edema, pleural effusions, or consolidations to suggest pneumonia - Elevated D-dimer (2700s); may be due to sepsis but given resp sxs, cannot r/o PE; Treat with Eliquis 10mg bid until renal function improves and CTA an be done - Continue albuterol prn + Breo Ellipta daily + Solumedrol 40mg IV daily, will schedule duonebs, may consider doing PFTs outpatient to assess for underlying p ulm disease Dizziness, improved - Improved after initiation of Meclizine - Seems to be related to BPPV - Continue Meclizine prn Atrial fibrillation: - New finding on telemetry - Patient without known history of this - Currently asymptomatic - Suspect this may be related to age + current illness - TSH 0.8, TTE 01/24 EF 55-60% and without wall abnormalities. Consider sleep study after discharge to r/o sleep apnea. KEESHA (acute kidney injury): - Creatinine at the time of admission was 0.97 - Am labs showing Cr of 1.44, trending down - Suspect pre-renal - Continue IVF and PO hydration - Monitor am labs Intertrigo: - New rash under bilateral breasts where environment is humid. Rash is erythematous, pruritic, tender, and with satellite lesions - Likely intertrigo - Will order ketoconazole 2% cream daily for management - Keep area as dry as possible Pulmonary embolism: - Possible PE given elevated d-dimer and worsening SOB - As above. Type 2 diabetes mellitus: - Stable - Hgb A1c from 01/19/24 was 7.3% - Home insulin on hold - Continue SSI adjusted for steroid use Paroxysmal supraventricular tachycardia: - Stable. - Continue home meds HTN (hypertension): - Stable. - Home meds on hold due to hypotension Cellulitis - resolved - Present in left lateral calf - Possible due to bug bite (mosquito versus spider)? - Afebrile - S/p 5 days of Daptomycin with improvement of cellulitis. - s/p 1 day of Clindamycin - Cefepime on hold due to current status for which partial anaphylaxis cannot be r/o (although rare/ low suspicion) Vasovagal episode: - Almost fainted in bathroom on 01/22/24 and BP was found to be low, but corrected afterwards - Orthostatics positive - Likely vasovagal episode versus orthostatic hypotension. - Continue IVF and encouraging PO intake VTE ppx: Eliquis IVF: LR @ 100 cc/hr Admission and Anticipated Discharge Date Admission Date: January 21, 2024 Supervising Physician Co-Signing Physician Notes I personally examined the patient and verified all esposito points of history and exam, discussed case, and agree with decision making with Dr Pino Arizmendi Overall feeling better, but rash got worse again. Itchy. Not wheezing today is muchnotes that it is more earlier in the day and seems to clear. Overall feeling improved. Vitals noted, in general she is awake and alert pleasant no distress. HEENT normocephalic atraumatic mucous membranes moist. Lungs are clear to auscultation bilaterally no rales rhonchi or wheeze with good effort. Skin shows diffuse predominantly maculopapular/coalescing into plaque type rash that seems to be fairly pruritic involving face arms and chest as well as back Sepsis after further review, sepsis appears to be to a viral infection not present on admission. We have continued her on antibiotics for her leg infection to the point that appears no further antibiotics are necessary. Her viral infection is probably accounting for the wheezing and the rashesbut nothing appears to be consistently in an allergic milieu. Continue supportive care and symptomatic treatment/steroids/nebs. Hopefully home soon. Given her frequent infections including somewhat odd immunologic reactions (relating that she got aseptic meningitis after a flu shot, current reaction, all of her allergies) I have asked for her to be set up with allergy/immunology after discharge A-fib/RVRecho reassuring, rate control/anticoagulation. PE has been considered as it relates to her tachycardia and breathing issuesat the same time, she is requiring anticoagulation for her A-fib now regardless. Blood pressure being a little bit on the low side has precluded more aggressive use of metoprolol, spot dosing of digoxin has been utilized for now AKIhighly likely prerenalIV fluids and follow. BMP now more reassurringstop IV fluids. Possibly be able to resume her home thiazide and ARB tomorrow DVT prophylaxisanticoagulated Subjective Today, pt states she feels about the same as she did yesterday. She states that her breathing is not better or worse and she has some wheezing at times. She states she did notice that yesterday she started to cough up some white-rosi mucus. Otherwise, she states her left leg is feeling better than when she initially came in. No complaints otherwise this morning. Review of Systems Review of Systems: As per HPI. Physical Exam Physical Exam: General:Alert and oriented, no acute distress but noted to have mild increased resp effort HEENT: Normocephalic, moist oral mucosa, Cardio: Irregularly irregular rhythm, rate 100s per telemetry in afib Resp:Audible wheezing, poor air movement auscultated GI: Soft and nontender, nondistended, bowel sounds active Skin: Warm, pink, dry, Psych: Mood-affect congruence. Results & Data Results & Data Vital Signs (Past 12 Hours) Vital Signs Temp Pulse Pulse Resp BP BP Pulse Ox 01/27/24 07:07 01/27/24 05:57 103 H 01/27/24 03:39 36.6 C 118 H 18 137/64 93 01/26/24 22:54 37.0 C 72 22 90/60 L 92 01/26/24 22:00 116 H 01/26/24 21:40 01/26/24 20:16 111 H 01/26/24 19:51 36.5 C 97 H 22 127/75 99 O2 Del Method O2 Flow Rate 01/27/24 07:07 Nasal Cannula 2 01/27/24 05:57 01/27/24 03:39 Room Air 01/26/24 22:54 Nasal Cannula 2 01/26/24 22:00 01/26/24 21:40 Nasal Cannula 2 01/26/24 20:16 01/26/24 19:51 Nasal Cannula 2 Resident Activity Tracking Resident Involvement: Resident Care Provided Care Provided: Adult [facility] 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
[2024-01-27] MEDS: ALBUT/IPRATROP 3MG/0.5MG NEB 3 ML VIAL NEB PRN (08:06)
[2024-01-27] MEDS: diphenhydrAMINE 50 MG/ML VIAL IV STA (09:34)
[2024-01-27] MEDS: ALBUT/IPRATROP 3MG/0.5MG NEB 3 ML VIAL NEB SCH (12:48)
--- NOTE | 2024-01-27 16:59 | Billing Data ---
Date of Service January 27, 2024 Coding Level of Care Code 62042 SUB INP/OBS CARE
[2024-01-27] MEDS: DIGOXIN 0.125 MG TAB PO ONE (17:35)
[2024-01-27] MEDS: POLYETHYLENE (MIRALAX) 17 GM PACK PO PRN (17:43)
[2024-01-27] MEDS: diphenhydrAMINE Capsule 25 MG CAP PO SCH (20:15)
--- NOTE | 2024-01-28 06:54 | Hospitalist Progress Note ---
Date of Service January 28, 2024 Assessment & Plan (1) Dizziness: (2) Type 2 diabetes mellitus: (3) Paroxysmal supraventricular tachycardia: (4) HTN (hypertension): (5) Cellulitis: (6) Vasovagal episode: (7) Sepsis: (8) Intertrigo: (9) Viral pneumonia: (10) Shortness of breath: (11) Pulmonary embolism: (12) Atrial fibrillation: (13) KEESHA (acute kidney injury): Plan 73yo female PMH of HTN, DM2, SVT (loop recorder) HTN initially admitted for dizziness found with BPPV found with cellulitis ans sepsis on unknown reason End expiratory wheezing Rash - Possibly due Drug reaction - Patient with worsening SOB and need for NC - CXR (01/23): No show pulmonary edema, pleural effusions, or consolidations to suggest pneumonia - Continue albuterol prn + Breo Ellipta daily + Duonebs екатерина - may consider doing PFTs outpatient to assess for underlying pulm disease - IV solumedrol amairani: 40 mg daily for 2 days, then 20 mg for 2 days then 10 mg for 2 days Sepsis - resolved - Patient with new fevers + tachycardia + leukocytosis - Source is not certain Wound as a source is unlikely given improvement of wound since her admission; Wound culture from 01/19/24 showing MSSA, H. parainfluenza, and Anaerobic gram positive cocci Lungs are CTA on exam and CXR not showing signs of pneumonia; repeat CXR today due to SOB also negative U/A appears infected, although patient is asymptomatic; Urine culture growing Yeast (not Jenifer albicans) Lyme screen from 01/19/24 negative - Cefepime on hold due to low concern for possible partial anaphylactic reaction - Blood cultures negative Elevated D-dimer - D-dimer (2700s); may be due to sepsis but given resp sxs, cannot r/o PE - Treat with Eliquis 10mg bid until renal function improves and CTA can be done - CTA ordered today Dizziness, improved - Seems to be related to BPPV - Continue Meclizine prn Atrial fibrillation - New finding on telemetry. Asymptomatic. Suspect this may be related to age + current illness - TSH 0.8, TTE 01/24 EF 55-60% and without wall abnormalities - Metoprolol tartrate 25 mg BID - Eliquis KEESHA (acute kidney injury): - Creatinine at the time of admission was 0.97 - Am labs showing Cr of 1.23 trending down - Suspect pre-renal -s/p IVF - Continue PO hydration - Monitor am labs Intertrigo: - New rash under bilateral breasts where environment is humid. Rash is erythematous, pruritic, tender, and with satellite lesions - Likely intertrigo - Will order ketoconazole 2% cream daily for management - Keep area as dry as possible Type 2 diabetes mellitus: - Stable - Hgb A1c from 01/19/24 was 7.3% - Home insulin on hold - Continue SSI adjusted for steroid use Paroxysmal supraventricular tachycardia: - Stable. - Continue home meds HTN (hypertension): - Stable. - Home meds on hold due to hypotension Cellulitis - resolved - Present in left lateral calf - Possible due to bug bite (mosquito versus spider)? - S/p 5 days of Daptomycin with improvement of cellulitis. - s/p 1 day of Clindamycin - Cefepime on hold due to current status for which partial anaphylaxis cannot be r/o (although rare/ low suspicion) Vasovagal episode: - Almost fainted in bathroom on 01/22/24 and BP was found to be low, but corrected afterwards - Orthostatics positive - Likely vasovagal episode versus orthostatic hypotension. - Continue IVF and encouraging PO intake VTE ppx: Eliquis Diet: DM2 Disposition: MEd/Surg Admission and Anticipated Discharge Date Admission Date: January 21, 2024 Supervising Physician Co-Signing Physician Notes ATTESTATION I also saw the patient and confirmed esposito portions of the history and exam. I agree with the impression and plan in the resident documentation, and as summarized below. Presented with dizziness. Started on abx for leg cellulitis. Later concern of sepsis d/t developed rash, fever and wheezing and a fib with RVR EXAM Sitting at the edge of the bed. No resp distress. lung exam - clear tachycardic skin - coalescing purplish rash over the whole body. DATA Labs creat - 1.23. IMPRESSION & PLAN Dizziness - on presentation - positive orthostatics on admission. Improved over hospital stay. Leg cellulitis - improved Drug reaction - rash, fever, wheezing - possibly from daptomycin - has been d/alonso. continue steroids and monitor. Concern of A fib - will need to follow the orchid worker and assess the need for anticoagulation -Has h/o PSVT. EKG 01/23 - undetermined rhythm. KEESHA - improved. follow. -hctz and losartan on hold. DVT prophylaxisanticoagulated Additional documentation as above Subjective Kamila was evaluated this morning found awake and alert in NAD. Currently on nasal cannula. Refer her breathing. Cough less dry with sputum production. Denie d any dizziness of SOB while walking. Otherwise, she states her left leg is feeling better than when she initially came in. No complaints otherwise this morning. Review of Systems Review of Systems: As per HPI. Physical Exam Physical Exam: General: AAOx3, afebrile, NAD CV: RRR no r/m/g Pulm: end expiratory wheezing, no accessory muscle use, no respiratory distress GI: soft, nontender, nondistended Skin: erythematous rash in bilateral upper extremities and facial flushing Ext: (L) lower extremity with improvement in cellulitis, quarter size lesion w/ yellowish drainage on bandage Results & Data Results & Data Vital Signs (Past 12 Hours) Vital Signs Temp Pulse Pulse Resp BP BP Pulse Ox 01/28/24 03:11 36.4 C L 102 H 20 150/72 H 97 01/27/24 23:08 36.4 C L 106 H 18 136/76 97 01/27/24 21:59 98 H 01/27/24 20:00 01/27/24 19:22 36.5 C 111 H 18 148/73 H 95 01/27/24 19:11 100 H 20 97 O2 Del Method O2 Flow Rate 01/28/24 03:11 Nasal Cannula 2 01/27/24 23:08 Room Air 01/27/24 21:59 01/27/24 20:00 Nasal Cannula 2 01/27/24 19:22 Nasal Cannula 2 01/27/24 19:11 Nasal Cannula 2 Resident Activity Tracking Resident Involvement: Resident Care Provided Care Provided: Adult Hospital Medicine (2) Type 2 diabetes mellitus Diabetes mellitus complication status: without complication Diabetes mellitus chcf insulin use: with lens coater use Qualified Code(s): E11.9 - Type 2 diabetes mellitus without complications; Z79.4 - MCC (current) use of insulin (4) HTN (hypertension) Hypertension type: essential hypertension Qualified Code(s): I10 - Essential (primary) hypertension
[2024-01-28 09:00] LABS: Basophils # (auto) 0.08 K/uL (0.00-0.20); Basophils % (auto) 0.4 %; Eosinophils # (auto) 0.08 K/uL (0.00-0.50); Eosinophils % (auto) 0.4 %; Hematocrit (blood only) 35.3 % (37.0-47.0); Hemoglobin 10.5 g/dl (12.0-16.0); Immature Granulocytes # (auto) 0.42 K/uL (0.01-0.20); Lymphocytes % (auto) 9.9 %; Mean Corpuscular Hemoglobin 28.9 pg (25.0-34.0); Mean Corpuscular Hgb Conc 29.7 g/dL (32.0-36.0); Mean Corpuscular Volume 97.2 fL (80.0-100.0); Mean Platelet Volume 10.4 fL (9.4-12.4); Monocytes # (auto) 0.82 K/uL (0.11-0.59); Monocytes % (auto) 3.8 %; Neutrophils # (auto) 17.81 K/uL (1.40-6.50); Neutrophils % (auto) 83.5 %; Platelet Count 198 K/uL (130-400); RDW Coefficient of Variation 14.5 % (11.5-14.5); RDW Standard Deviation 51.8 fL (36.4-46.3); Red Blood Count 3.63 M/uL (4.20-5.40); White Blood Count 21.31 K/ul (4.8-10.8)
[2024-01-28 09:24] LABS: Alanine Aminotransferase 51 U/L (7-52); Albumin Level 2.9 gm/dl (3.4-5.0); Alkaline Phosphatase 122 U/L (34-104); Anion Gap 7 (3-11); BUN Creatinine Ratio 40.7 (10-20); Bilirubin,Total 0.4 mg/dl (0.2-1.0); Blood Urea Nitrogen 50 mg/dl (6-23); Calcium 8.1 mg/dl (8.6-10.3); Carbon Dioxide 23 mmol/L (21-32); Chloride 103 mmol/L (98-107); Creatinine Clr Calc Pharmacy 52.1 ml/min; Est GFR (African American) 49.7 ml/min; Est GFR (Non-African American) 42.9 ml/min; Globulin 2.9 gm/dl (2.5-4.0); Glucose 242 mg/dl (70-99(Fasting)); Sodium 133 mmol/L (136-145); Total Protein 5.8 gm/dl (6.0-8.3)
[2024-01-28 10:26] LABS: Potassium 5.2 mmol/L (3.5-5.1)
[2024-01-28 10:31] LABS: Potassium 5.2 mmol/L (3.5-5.1)
[2024-01-28] MEDS: METOPROLOL TARTRATE 25 MG TAB PO SCH (20:48)
[2024-01-29 06:17] LABS: Basophils # (auto) 0.09 K/uL (0.00-0.20); Basophils % (auto) 0.5 %; Eosinophils # (auto) 0.09 K/uL (0.00-0.50); Eosinophils % (auto) 0.5 %; Hematocrit (blood only) 34.2 % (37.0-47.0); Hemoglobin 10.7 g/dl (12.0-16.0); Immature Granulocytes # (auto) 0.86 K/uL (0.01-0.20); Immature Granulocytes % (auto) 4.4 %; Lymphocytes # (auto) 3.01 K/uL (1.20-3.40); Lymphocytes % (auto) 15.3 %; Mean Corpuscular Hemoglobin 30.2 pg (25.0-34.0); Mean Corpuscular Hgb Conc 31.3 g/dL (32.0-36.0); Mean Corpuscular Volume 96.6 fL (80.0-100.0); Monocytes # (auto) 1.62 K/uL (0.11-0.59); Monocytes % (auto) 8.2 %; Neutrophils # (auto) 14.03 K/uL (1.40-6.50); Neutrophils % (auto) 71.1 %; Platelet Count 270 K/uL (130-400); RDW Coefficient of Variation 14.6 % (11.5-14.5); RDW Standard Deviation 52.4 fL (36.4-46.3); Red Blood Count 3.54 M/uL (4.20-5.40)
[2024-01-29 06:30] LABS: Bilirubin,Total 0.4 mg/dl (0.2-1.0); Calcium 8.2 mg/dl (8.6-10.3); Potassium 5.4 mmol/L (3.5-5.1)
[2024-01-29 06:36] LABS: Albumin Globulin Ratio 1.1 (0.9-2); BUN Creatinine Ratio 40.8 (10-20); Creatinine Clr Calc Pharmacy 49.5 ml/min; Est GFR (African American) 46.5 ml/min; Est GFR (Non-African American) 40.1 ml/min; Globulin 2.7 gm/dl (2.5-4.0); Total Protein 5.7 gm/dl (6.0-8.3)
--- NOTE | 2024-01-29 06:56 | Hospitalist Progress Note ---
Date of Service January 29, 2024 Assessment & Plan (1) Dizziness: (2) Type 2 diabetes mellitus: (3) Paroxysmal supraventricular tachycardia: (4) HTN (hypertension): (5) Cellulitis: (6) Vasovagal episode: (7) Sepsis: (8) Intertrigo: (9) Viral pneumonia: (10) Shortness of breath: (11) Pulmonary embolism: (12) Atrial fibrillation: (13) KEESHA (acute kidney injury): Plan 73yo female PMH of HTN, DM2, SVT (loop recorder) HTN initially admitted for dizziness found with BPPV found with cellulitis ans sepsis on unknown reason End expiratory wheezing Rash - Possibly due Drug reaction / Dress syndrome - Patient with worsening SOB and need for NC - CXR (01/23): No show pulmonary edema, pleural effusions, or consolidations to suggest pneumonia - Continue albuterol prn + Breo Ellipta daily + Duonebs екатерина - may consider doing PFTs outpatient to assess for underlying pulm disease - IV solumedrol amairani: 40 mg daily for 2 days, then 20 mg for 2 days then 10 mg for 2 days Sepsis - resolved - Patient with new fevers + tachycardia + leukocytosis - Source is not certain - Cefepime on hold due to low concern for possible partial anaphylactic reaction - Blood cultures negative Elevated D-dimer - D-dimer (2700s); may be due to sepsis but given resp sxs, cannot r/o PE - Treat with Eliquis 10mg bid - CTA ordered yesterday, not able to complete due to hx of allergies on dyes reported by patient. This was updated on her allergy list Dizziness, improved - Seems to be related to BPPV - Continue Meclizine prn Atrial fibrillation - New finding on telemetry. Asymptomatic. Suspect this may be related to age + current illness - TSH 0.8, TTE 01/24 EF 55-60% and without wall abnormalities - Metoprolol tartrate 25 mg BID - Eliquis for anticoagulation - Cardiology consulted, aprec recommendations KEESHA (acute kidney injury): - Creatinine at the time of admission was 0.97 - Am labs showing Cr of 1.23 trending down - Suspect pre-renal - s/p IVF - Continue PO hydration - Monitor am labs Intertrigo: - New rash under bilateral breasts where environment is humid. Rash is erythematous, pruritic, tender, and with satellite lesions - Likely intertrigo - Will order ketoconazole 2% cream daily for management - Keep area as dry as possible Type 2 diabetes mellitus: - Stable - Hgb A1c from 01/19/24 was 7.3% - Home insulin on hold - Continue SSI adjusted for steroid use Paroxysmal supraventricular tachycardia: - Stable. - Continue home meds HTN (hypertension): - Stable. - Home meds on hold due to hypotension Cellulitis - resolved Vasovagal episode: - Almost fainted in bathroom on 01/22/24 and BP was found to be low, but corrected afterwards - Orthostatics positive - Likely vasovagal episode versus orthostatic hypotension. - Continue IVF and encouraging PO intake VTE ppx: Eliquis Diet: DM2 Disposition: MEd/Surg Admission and Anticipated Discharge Date Admission Date: January 21, 2024 Supervising Physician Co-Signing Physician Notes ATTESTATION I also saw the patient and confirmed esposito portions of the history and exam. I agree with the impression and plan in the resident documentation, and as summarized below. continuing to have lot of serous drainage from inframammary fold. EXAM Again Sitting at the edge of the bed. No resp distress. lung exam - clear tachycardic skin - coalescing purplish rash over the whole body - rash looked change management manager today. -inframammary crease intertrigo DATA Labs creat - 1.3. IMPRESSION & PLAN Near syncope - presenting problem - positive orthostatics on admission. -will need to review loop recorder data to assess for any arrhythmia contribution. cardio consult added. Leg cellulitis - treated with abx. improved Drug reaction - rash, fever, wheezing - possibly from daptomycin - has been d/alonso. continue steroids and monitor. A fib RVR - New diagnosis. HR improving but still high. -continue Metoprolol 25 mgs bid. -had a loop recorder placed by cardiology - will consult for any further input -continue eliqus. KEESHA - creatinine rising again. likely prerenal from RVR. -continue with HR control -hctz and losartan on hold. Hyperkalemia - mild. follow for now. DVT prophylaxisanticoagulated Additional documentation as above Subjective PAtient seem this morning. Asleep easily arousable. Rash is improving. Good PO intake. Physical exam pertinent for end expiratory Denied any SOB, chest pain, palpitations, or any other symtoms Review of Systems Review of Systems: As per HPI. Physical Exam Physical Exam: General: AAOx3, afebrile, NAD CV: RRR no r/m/g Pulm: end expiratory wheezing, no accessory muscle use, no respiratory distress GI: soft, nontender, nondistended Skin: erythematous rash in bilateral upper extremities and facial flushing Ext: (L) lower extremity with improvement in cellulitis, quarter size lesion w/ yellowish drainage on bandage Results & Data Results & Data Vital Signs (Past 12 Hours) Vital Signs Temp Pulse Pulse Resp BP BP Pulse Ox 01/29/24 03:59 36.8 C 99 H 16 179/80 H 98 01/29/24 01:37 62 22 93 01/28/24 23:06 36.5 C 102 H 14 131/58 L 95 01/28/24 21:57 109 H 01/28/24 21:15 01/28/24 19:51 36.4 C L 100 H 14 167/78 H 98 01/28/24 19:46 90 91 O2 Del Method O2 Flow Rate 01/29/24 03:59 Room Air 01/29/24 01:37 Nasal Cannula 2 01/28/24 23:06 Room Air 01/28/24 21:57 01/28/24 21:15 Nasal Cannula 2 01/28/24 19:51 Room Air 01/28/24 19:46 Nasal Cannula 2 Resident Activity Tracking Resident Involvement: Resident Care Provided Care Provided: Adult Hospital Medicine (2) Type 2 diabetes mellitus Diabetes mellitus complication status: without complication Diabetes mellitus usp insulin 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
[2024-01-29] MEDS: LACTATED RINGER'S 1,000 ML IV SCH (08:42)
[2024-01-29] MEDS ORDERED: methylPREDNISolone 40 MG in SYRINGE 0 ML IV ONE (09:00)
[2024-01-29] MEDS: methylPREDNISolone 40 MG in SYRINGE 0 ML IV SCH (09:12)
--- NOTE | 2024-01-29 16:08 | Electrocardiogram Report ---
Test Reason : Blood Pressure : / mmHG Vent. Rate : 120 BPM Atrial Rate : 102 BPM P-R Int : 000 ms QRS Dur : 144 ms QT Int : 338 ms P-R-T Axes : 000 002 -06 degrees QTc Int : 477 ms Atrial fibrillation with premature ventricular beats Right bundle branch block Abnormal ECG When compared with ECG of 24-JAN-2024 20:14, Previous tracing appears to have arm lead reversal Otherwise No significant change Confirmed by Jaxon Carvajal ([id number]) on 01/29/2024 4:08:08 PM Referred By: REFERRED SELF Confirmed By:Jaxon Carvajal
--- NOTE | 2024-01-29 16:09 | Electrocardiogram Report ---
Test Reason : Blood Pressure : / mmHG Vent. Rate : 114 BPM Atrial Rate : 131 BPM P-R Int : 000 ms QRS Dur : 146 ms QT Int : 346 ms P-R-T Axes : 000 -06 -08 degrees QTc Int : 476 ms Atrial fibrillation with rapid ventricular response Premature ventricular complexes Right bundle branch block Abnormal ECG When compared with ECG of 29-JAN-2024 09:30, (unconfirmed) No significant change Confirmed by Jaxon Carvajal ([id number]) on 01/29/2024 4:08:41 PM Referred By: REFERRED SELF Confirmed By:Jaxon Carvajal
[2024-01-30 06:47] LABS: Hematocrit (blood only) 34.3 % (37.0-47.0); Hemoglobin 10.5 g/dl (12.0-16.0); Mean Corpuscular Hemoglobin 29.4 pg (25.0-34.0); Mean Corpuscular Hgb Conc 30.6 g/dL (32.0-36.0); Mean Corpuscular Volume 96.1 fL (80.0-100.0); Mean Platelet Volume 9.8 fL (9.4-12.4); Nucleated RBC # (auto) 0.03 K/uL (0.00-0.12); Nucleated RBC % (auto) 0.2 %; Platelet Count 281 K/uL (130-400); RDW Coefficient of Variation 14.5 % (11.5-14.5); RDW Standard Deviation 50.9 fL (36.4-46.3); Red Blood Count 3.57 M/uL (4.20-5.40); White Blood Count 17.46 K/ul (4.8-10.8)
[2024-01-30 07:10] LABS: Albumin Globulin Ratio 1.3 (0.9-2); Albumin Level 3.2 gm/dl (3.4-5.0); BUN Creatinine Ratio 44.6 (10-20); Bilirubin,Total 0.4 mg/dl (0.2-1.0); Calcium 8.3 mg/dl (8.6-10.3); Creatinine Clr Calc Pharmacy 52.6 ml/min; Est GFR (African American) 50.7 ml/min; Est GFR (Non-African American) 43.7 ml/min; Globulin 2.5 gm/dl (2.5-4.0); Potassium 4.9 mmol/L (3.5-5.1); Total Protein 5.7 gm/dl (6.0-8.3)
[2024-01-30 07:19] LABS: Basophils # (auto) 0.12 K/uL (0.00-0.20); Basophils % (auto) 0.7 %; Eosinophils % (auto) 1.1 %; Immature Granulocytes # (auto) 1.08 K/uL (0.01-0.20); Immature Granulocytes % (auto) 6.2 %; Lymphocytes # (auto) 4.47 K/uL (1.20-3.40); Lymphocytes % (auto) 25.6 %; Monocytes # (auto) 1.86 K/uL (0.11-0.59); Monocytes % (auto) 10.7 %; Neutrophils # (auto) 9.73 K/uL (1.40-6.50); Neutrophils % (auto) 55.7 %
--- NOTE | 2024-01-30 08:15 | Hospitalist Progress Note ---
Date of Service January 30, 2024 Assessment & Plan (1) Dizziness: (2) Type 2 diabetes mellitus: (3) Paroxysmal supraventricular tachycardia: (4) HTN (hypertension): (5) Cellulitis: (6) Vasovagal episode: (7) Sepsis: (8) Intertrigo: (9) Viral pneumonia: (10) Shortness of breath: (11) Pulmonary embolism: (12) Atrial fibrillation: (13) KEESHA (acute kidney injury): Plan 73yo female PMH of HTN, DM2, SVT (loop recorder) HTN initially admitted for dizziness found with BPPV found with cellulitis ans sepsis on unknown reason Atrial fibrillation - rapid ventricular response - New finding on telemetry. Asymptomatic. Suspect this may be related to age + current illness - TSH 0.8, TTE 01/24 EF 55-60% and without wall abnormalities - Metoprolol tartrate 75 BID - Eliquis for anticoagulation - Cardiology consulted, aprec recommendations hypoxia End expiratory wheezing - CXR (01/23): No show pulmonary edema, pleural effusions, or consolidations to suggest pneumonia - Atelectasia vs Possible undiagnosed Asthma/COPD? or LAZARO? - Continue albuterol prn + Breo Ellipta daily + Duonebs екатерина - Will repeat CXR today due to continue requirement of NC - 2 steps ordered - Continue to monitor Rash - stable - Possibly due Drug reaction / Dress syndrome? - Steroids amairani - Monitor Sepsis - resolved - Patient with new fevers + tachycardia + leukocytosis - Source is not certain - Cefepime on hold due to low concern for possible partial anaphylactic reaction - Blood cultures negative Elevated D-dimer - D-dimer (2700s); may be due to sepsis but given resp sxs, cannot r/o PE - Treat with Eliquis 10mg bid - CTA ordered yesterday, not able to complete due to hx of allergies on dyes reported by patient. This was updated on her allergy list Dizziness, improved - Seems to be related to BPPV - Continue Meclizine prn KEESHA (acute kidney injury): - Creatinine at the time of admission was 0.97 - Am labs showing Cr of 1.20 trending down - Suspect pre-renal due to RVR - s/p IVF - Continue PO hydration - Monitor am labs HTN (hypertension): - Stable. - Holding HCTZ, Losartan and Spironolactone for now until optimization of rate control and KEESHA Intertrigo: - New rash under bilateral breasts where environment is humid. Rash is erythematous, pruritic, tender, and with satellite lesions - Likely intertrigo - Will order ketoconazole 2% cream daily for management - Keep area as dry as possible Type 2 diabetes mellitus: - Stable - Hgb A1c from 01/19/24 was 7.3% - Home insulin on hold - Continue SSI adjusted for steroid use - Pharmacy following Cellulitis - resolved Vasovagal episode: - Almost fainted in bathroom on 01/22/24 and BP was found to be low, but corrected afterwards - Likely vasovagal episode versus orthostatic hypotension. - encouraging PO intake VTE ppx: Eliquis Diet: DM2 Disposition: MEd/Surg Admission and Anticipated Discharge Date Admission Date: January 21, 2024 Supervising Physician Co-Signing Physician Notes ATTESTATION I also saw the patient and confirmed esposito portions of the history and exam. I agree with the impression and plan in the resident documentation, and as summarized below. Near syncope - presenting problem - per cardio - vagal and concern of HR drop. Leg cellulitis - treated with abx. improved Drug reaction - rash, fever, wheezing - possibly from daptomycin - has been d/alonso. continue steroids taper. A fib RVR - New diagnosis. HR improving but still high. -Metoprolol 75 mgs bid. -continue eliqus. -Cardio consulted -cardioversion in 3 wks. KEESHA - creatinine improving. likely prerenal from RVR. -hctz and losartan on hold - consider resuming in am. Hypoxia - no resp distress. occasional wheeze/rhonchi. -I and O unreliable since no output charted. No weight change since admission. -recheck cxr. DVT prophylaxisanticoagulated Additional documentation as above Subjective Kamila was evaluated this morning found awake and alert. She was eating food. Refers the rash is getting better. Wheezing is not noticed by her as much. Denied any dizziness or SOB, chest pain, abdominal pain, nausea, diarrhea. Review of Systems Review of Systems: as per HPI Physical Exam Constitutional: WD/WN, vitals as above Respiratory: normal respiratory effort, lungs clear to auscultation Cardiovascular: Rate/Rhythm: + irregularly irregular Heart Sounds: + murmur Extremities: no edema Gastrointestinal (Abdomen): normal bowel sounds, soft, nontender, no hepatosplenomegaly Skin: no rashes, warm and dry Results & Data Results & Data Vital Signs (Past 12 Hours) Vital Signs Temp Pulse Pulse Resp BP Pulse Ox O2 Del Method 01/30/24 07:45 115 H 15 97 Nasal Cannula 01/30/24 07:35 36.4 C L 110 H 18 137/71 95 Nasal Cannula 01/30/24 05:58 104 H 01/30/24 04:07 36.4 C L 107 H 20 147/71 H 94 Room Air 01/30/24 02:04 90 18 90 Room Air 01/29/24 23:57 36.4 C L 99 H 20 148/70 H 92 Nasal Cannula 01/29/24 23:22 104 H 01/29/24 22:21 Room Air 01/29/24 20:19 100 H 22 92 Room Air O2 Flow Rate 01/30/24 07:45 2 01/30/24 07:35 2 01/30/24 05:58 01/30/24 04:07 01/30/24 02:04 01/29/24 23:57 2 01/29/24 23:22 01/29/24 22:21 01/29/24 20:19 Resident Activity Tracking Resident Involvement: Resident Care Provided Care Provided: Adult Hospital Medicine (2) Type 2 diabetes mellitus Diabetes mellitus complication status: without complication Diabetes mellitus chcf insulin use: with chcf use Qualified Code(s): E11.9 - Type 2 diabetes mellitus without complications; Z79.4 - detention (current) use of ins ulin (4) HTN (hypertension) Hypertension type: essential hypertension Qualified Code(s): I10 - Essential (primary) hypertension
[2024-01-30] MEDS ORDERED: PHARMACY GLYCEMIC MGMT CONSULT PRN (08:17)
--- NOTE | 2024-01-30 08:32 | Cardiology Consultation ---
Date of Consultation January 30, 2024 Assessment & Plan (1) Atrial fibrillation: Plan 1. Atrial fibrillation: This is the first documented episode of atrial fibrillation, and we can be fairly confident she has not had it in quite a few years since we have had loop recorder is in place since 2015. It is always difficult to tell what might have caused atrial fibrillation, it is possible it was caused by her hospitalization but it is a little bit dangerous to assume that since if she has recurrence we could miss it and she would be at risk for stroke (she is asymptomatic during the rhythm). Her device will monitor for it however that is very near failure and therefore we would have to replace it if we want to use that to monitor for atrial fibrillation. At least for the time being I would recommend anticoagulation and rate control with cardioversion in about 3 weeks if she remains in atrial fibrillation. I would continue her current dose of Eliquis (now 5 mg twice a day) and I am going to increase her beta-blockade to try to control her heart rate. 2. Syncope: I suspect this has been vagal events in the past, possibly with very little heart rate drop, but she has not had difficulty with that while having loop recorder in place. She did have a minor episode here which would be consistent with that. It does not appear to have been atrial fibrillation although it is conceivable that she had atrial fibrillation and conversion pauses historically (before we have the loop recorder placed). History of Present Illness Reason for Consultation: Atrial fibrillation Attending Physician: Adelia Deluna MD History of Present Illness This is a 73-year-old woman who had 3 episodes of syncope in 2016. She had an extensive workup which included a 30 day event monitor however no arrhythmia or symptoms were identified. After removing the event recorder she had another syncopal event. We therefore implanted a loop recorder on 05/11/2016. That device reached replacement time, since she did have both SVT and wide-complex tachycardia identified, even without syncope, we did elect to replace the device which was done on May 04, 2020. Since loop recorder replacement she has had no further syncope and has not had presyncope. She did have a fall in August 2020, she was walking next to her car and tripped over a rock and fell down using her arm to break her fall. This resulted in a broken wrist but clearly was not related to lightheadedness or syncope and no arrhythmia was identified. Her loop recorder has reached end of service although it is still functional. In the past we have never identified atrial fibrillation. She was admitted on January 18, 2024 through the emergency room with dizziness, I believe this was felt to be vertigo however she developed a cellulitis which was treated and seemed to have a vagal event and she remained. I believe she is being treated for a pulmonary embolism (Eliquis) although not sure exactly how that diagnosis was made. She was then observed to be in atrial fibrillation, on presentation January 18, 2024 she was in sinus rhythm on electrocardiography and her heart rate is not significantly elevated until the afternoon of January 22, 2024. An electrocardiogram done at that time showed atrial fibrillation with a rapid ventricular response. On telemetry she has remained in atrial fibrillation since. She has been on minimal rate controlling medications and her heart rate was sustained a little over 100. An echocardiogram done January 25, 2024 shows normal left ventricular systolic function with no wall motion abnormalities and mild left ventricular hypertrophy. No significant valvular At the time of my evaluation she is very sleepy but I did wake her up and she would answer questions although she was slow to respond. She seems to have no symptoms whatsoever of atrial fibrillation, but has had a loop recorder in for quite a few years with no evidence of atrial fibrillation (although she did have some PAT in the past). This therefore appears to be a new rhythm. Allergies Allergy/AdvReac Type Severity Reaction Status Date / Time erythromycin base Allergy Severe ANAPHYLAXIS Verified 01/18/24 19:22 metformin Allergy Severe GENERALIZED Verified 01/18/24 19:22 RASH AND ITCHING Penicillins Allergy Severe ANAPHYLAXIS, Verified 01/18/24 19:22 RASH cefaclor Allergy Intermediate RASH Verified 01/18/24 19:22 tetanus toxoid, adsorbed Allergy Intermediate REDNESS, Verified 01/18/24 19:22 SWELLING AT INSERTION SITE Quinolones Allergy Mild RASH Verified 01/18/24 19:22 clindamycin Allergy Unknown Unknown Verified 01/18/24 19:22 Influenza Virus Vaccines Allergy Unknown Unknown Verified 01/18/24 19:22 Iodinated Contrast Media Allergy Unknown Anaphylaxis Verified 01/28/24 18:57 Sulfa (Sulfonamide Allergy Unknown Unknown Verified 01/18/24 19:22 Antibiotics) tetracycline Allergy Unknown Unknown Verified 01/18/24 19:22 Tetracyclines Allergy Unknown MINOCYCLINE Verified 01/18/24 19:22 /DOXY prednisone AdvReac Intermediate PSYCHOSIS Verified 01/18/24 19:22 vancomycin AdvReac Intermediate RED MAN Verified 01/18/24 19:22 SYNDROME - RASH, WBC DECREASED Home Medications Medication Instructions Recorded Confirmed Type loratadine 10 mg capsule 10 mg PO DAILY 06/12/19 01/18/24 History multivitamin (Daily Multi-Vitamin 1 tab PO DAILY 09/13/20 01/18/24 History tablet) acetaminophen 500 mg tablet 1,000 mg PO Q6H PRN Pain 12/27/20 01/18/24 History (Tylenol Extra Strength) lancets 33 gauge (Diligent Board Member ServicesTouch Delica #100 ea 09/06/22 12/10/23 Rx Plus Lancet) blood sugar diagnostic (OneTouch #100 ea 05/10/23 12/10/23 Rx Verio test strips) hydrochlorothiazide 25 mg tablet 25 mg PO DAILY #90 tabs 11/22/23 01/18/24 Rx insulin glargine 100 unit/mL (3 26 unit (0.26 mL) subcut DAILY #15 11/22/23 01/18/24 Rx mL) subcutaneous pen (Lantus mL Solostar U-100 Insulin) pen needle, diabetic 31 gauge x #100 ea 11/22/23 12/10/23 Rx 1/4" (Comfort EZ Pen [place]) spironolactone 25 mg tablet 25 mg PO DAILY #90 tabs 11/22/23 01/18/24 Rx olmesartan 40 mg tablet 40 mg PO DAILY #90 tabs 12/26/23 01/18/24 Rx clindamycin HCl 150 mg capsule 300 mg (2 x 150 mg) PO Q6 3 days 01/22/24 Rx #24 caps meclizine 12.5 mg tablet 12.5 mg PO Q24H PRN dizziness #30 01/22/24 Rx tabs Patient History Medical History Acute respiratory failure with hypoxia DVT prophylaxis KEESHA (acute kidney injury) Hypoxia Cellulitis Thrombocytopenia Surgical History History of incision and drainage S/P total abdominal hysterectomy and bilateral salpingo-oophorectomy S/P tonsillectomy History of laparoscopic cholecystectomy Family History Father Myocardial infarction Sudden Mother Diabetes Hypertension Stroke Sister Breast cancer Cancer Denies family history of Ovarian cancer Prostate cancer Dyslipidemia Kidney disease Lung cancer Colorectal cancer Asthma Social History Smoking Status: Never smoker Second Hand Exposure: No; Do You Dip or Chew Tobacco: No; Hx Alcohol Use: No Hx Substance Use: No Preferred Language: Croatian Communication Ability: Effective Investigator Required: No Beliefs That Will Affect Care: None marital status: Current Living Situation: Alone current occupational status: retired How many Children do You have: 0 Feels Safe at Home: Yes Childhood Exposure to Second-Hand Smoke: Yes Diet: diabetic caffeine: Yes Dental Care, Regularly: Yes Physical Activity Frequency: 5-6 Times per Week Seatbelt Use: always Sunscreen Use: Yes Assistive Devices: None Review of Systems Review of Systems: All systems reviewed & are unremarkable except as noted in HPI & below Physical Exam Physical Exam: Constitutional: Alert, cooperative and in no distress. She is supine in bed. HEENT: Unremarkable Neck: No jugular venous distention, carotid pulses are irregular but otherwise normal and equal bilaterally without bruits. Pulmonary: Clear to auscultation bilaterally. Cardiac: Irregular rhythm with no murmur, gallop or rub. Abdomen: Soft, nontender with normal bowel sounds. Extremities: No edema. Neurologic: No focal findings. Gait was not tested Skin: No rash, ecchymoses or petechiae. Results & Data Vital Signs (Past 12 Hours) Vital Signs Temp Pulse Pulse Resp BP Pulse Ox O2 Del Method 01/30/24 07:45 115 H 15 97 Nasal Cannula 01/30/24 07:35 36.4 C L 110 H 18 137/71 95 Nasal Cannula 01/30/24 05:58 104 H 01/30/24 04:07 36.4 C L 107 H 20 147/71 H 94 Room Air 01/30/24 02:04 90 18 90 Room Air 01/29/24 23:57 36.4 C L 99 H 20 148/70 H 92 Nasal Cannula 01/29/24 23:22 104 H 01/29/24 22:21 Room Air O2 Flow Rate 01/30/24 07:45 2 01/30/24 07:35 2 01/30/24 05:58 01/30/24 04:07 01/30/24 02:04 01/29/24 23:57 2 01/29/24 23:22 01/29/24 22:21 Laboratory Results Cardiac Enzymes 01/30/24 Range/Units 05:59 AST 17 (13-39) U/L CBC 01/30/24 Range/Units 05:59 WBC 17.46 H (4.8-10.8) K/ul RBC 3.57 L (4.20-5.40) M/uL Hgb 10.5 L (12.0-16.0) g/dl Hct 34.3 L (37.0-47.0) % Plt Count 281 (130-400) K/uL Neut # (Auto) 9.73 H (1.40-6.50) K/uL Lymph # (Auto) 4.47 H (1.20-3.40) K/uL Dolores # (Auto) 1.86 H (0.11-0.59) K/uL Eos # (Auto) 0.20 (0.00-0.50) K/uL Baso # (Auto) 0.12 (0.00-0.20) K/uL Comprehensive Metabolic Panel 01/30/24 Range/Units 05:59 Sodium 139 (136-145) mmol/L Potassium 4.9 (3.5-5.1) mmol/L Chloride 104 (98-107) mmol/L Carbon Dioxide 29 (21-32) mmol/L BUN 54 H (6-23) mg/dl Creatinine 1.21 H (0.6-1.2) mg/dl Glucose 176 H (70-99(Fasting)) mg/dl Calcium 8.3 L (8.6-10.3) mg/dl AST 17 (13-39) U/L ALT 43 (7-52) U/L Alkaline Phosphatase 98 (34-104) U/L Total Protein 5.7 L (6.0-8.3) gm/dl Albumin 3.2 L (3.4-5.0) gm/dl Intake and Output 01/29/24 01/30/24 01/30/24 22:59 06:59 14:59 Intake Total 360 / 940 100 / 940 Balance 360 / 940 100 / 940 Intake: Oral 360 / 940 100 / 940 Other: Weight 128.9 kg Weight Measurement Method Standing Scale Diagnostic Findings Telemetry: Atrial fibrillation for the past 120 hours (the duration of the saved recording), heart rate averaging just over 100 with very little diurnal heart rate variation. Frequent PVCs or aberrantly conducted beats. PG Care Time/CCT Total # of Minutes Spent Total Time Spent with Patient: Total time spent is greater than 50% in coordination of care (as documented) at patient's floor/unit and/or counseling patient: Coding Level of Care Code 16099 INT INP/OBS CARE 375MIN Diagnoses Atrial fibrillation I48.91
[2024-01-30] MEDS: LANTUS PER UNIT CHARGE SC SCH (09:06)
--- NOTE | 2024-01-30 10:42 | Pharmacy Report ---
Pharmacy Glycemic Short Note 2 - Date of Service January 30, 2024 - Glycemic Short BSG Results (Last 24 hours): 01/29/24 01/29/24 01/29/24 12:20 17:11 20:03 Glucose POC Glucose 176 H 157 H 204 H 01/30/24 01/30/24 05:59 08:28 Glucose 176 H POC Glucose 185 H OUTPATIENT ANTIDIABETIC REGIMEN: * Insulin glargine 26 units SC daily HbA1c: 7.3% (01/19/24) ASSESSMENT: * LW is a 73 year old female admitted on 01/18/24 due to dizziness complicated by sepsis secondary to unknown source * Patient has been receiving Solu-medrol 40 mg IV BID (01/23-01/27) and now 40 mg IV daily (01/28-01/29) * Pharmacy consulted for glycemic management today (01/29) * Fasting blood sugar elevated this morning (185 mg/dL), likely related to steroid administration w/ no basal insulin * Discussed with consulting provider, plan is to transition to PO steroids tomorrow * Prednisone taper ordered to start 01/31/24: 40 mg PO daily x 2, 20 mg PO daily x 2, and 10 mg PO daily x 2. PLAN FOR INPATIENT GLYCEMIC CONTROL: * Basal insulin * Lantus 30 units SC x 1 * Bolus insulin * NovoLog per scale ACHS or Q6hrs while NPO * Goal Range: Low 110 mg/dL - High 140 mg/dL * Correction Factor: 15 mg/dL/unit * Nutritional / Prandial insulin per carb ratio of 1 unit per 4 grams CHO consumed
[2024-01-30] MEDS: methylPREDNISolone 40 MG in SYRINGE 0 ML IV ONE (10:49)
[2024-01-30] MEDS: METOPROLOL TARTRATE 50 MG TAB PO SCH (10:49)
[2024-01-30 12:32] LABS: Magnesium 2.5 mg/dl (1.7-2.4)
--- NOTE | 2024-01-30 13:36 | XRay Report ---
XR chest 1V portable HISTORY: 73 years-old Female hypoxia COMPARISON: 01/24/2024 TECHNIQUE: AP view the chest FINDINGS: The cardiomediastinal and hilar silhouettes are unchanged. Electronic device projects over the left h eart border. Atherosclerosis of the aorta. No pneumothorax. Pulmonary vascular congestion with right perihilar atelectasis. Blunting of the costophrenic angles with mild subsegmental left basilar opacit ies. The bones appear grossly intact. IMPRESSION: 1. Cardiomegaly with pulmonary vascular congestion. 2. Probable trace pleural effusions with basilar atelectasis. ACT 112: Negative or not required by law. The above report was generated using voice recognition software. It may contain grammatical, syntax o r spelling errors. Electronically signed by: Ben Caruso M.D. 01/30/2024 1:35 PM
[2024-01-30] MEDS: METOPROLOL TARTRATE 25 MG TAB PO STA (13:53)
[2024-01-30] MEDS: METOPROLOL TARTRATE 25 MG TAB PO SCH (21:29)
[2024-01-30] MEDS ORDERED: ALBUT/IPRATROP 3MG/0.5MG NEB 3 ML VIAL NEB PRN (21:50)
[2024-01-31 06:35] LABS: Hemoglobin 10.7 g/dl (12.0-16.0); Mean Corpuscular Hgb Conc 31.5 g/dL (32.0-36.0); Mean Corpuscular Volume 95.2 fL (80.0-100.0); Mean Platelet Volume 10.3 fL (9.4-12.4); Nucleated RBC # (auto) 0.03 K/uL (0.00-0.12); Nucleated RBC % (auto) 0.2 %; Platelet Count 248 K/uL (130-400); RDW Coefficient of Variation 14.5 % (11.5-14.5); RDW Standard Deviation 50.9 fL (36.4-46.3); Red Blood Count 3.57 M/uL (4.20-5.40); White Blood Count 17.08 K/ul (4.8-10.8)
--- NOTE | 2024-01-31 07:16 | Hospitalist Progress Note ---
Date of Service January 31, 2024 Assessment & Plan (1) Dizziness: (2) Type 2 diabetes mellitus: (3) Paroxysmal supraventricular tachycardia: (4) HTN (hypertension): (5) Cellulitis: (6) Vasovagal episode: (7) Sepsis: (8) Intertrigo: (9) Viral pneumonia: (10) Shortness of breath: (11) Pulmonary embolism: (12) Atrial fibrillation: (13) KEESHA (acute kidney injury): Plan 73yo female PMH of HTN, DM2, SVT (loop recorder) HTN initially admitted for dizziness found with BPPV found with cellulitis ans sepsis on unknown reason Atrial fibrillation - rapid ventricular response - New finding on telemetry. Asymptomatic. Suspect this may be related to age + current illness - TSH 0.8, TTE 01/24 EF 55-60% and without wall abnormalities - Metoprolol tartrate 75 BID - Eliquis for anticoagulation - Cardiology consulted, aprec recommendations Hypoxia End expiratory wheezing - CXR (01/30): Probable trace pleural effusions with basilar atelectasis. - Atelectasia vs Possible undiagnosed Asthma/COPD? or LAZARO? - Continue albuterol prn + Breo Ellipta daily + Duonebs prn - No output charted, no increased on weight. This could be secondary to atelectasia and some pleural effusion due to less ambulation while hospitalized - IV lasix once today - 2 steps ordered - Continue to monitor Rash - stable - Possibly due Drug reaction / Dress syndrome? - Steroids amairani - Monitor Sepsis - resolved - Patient with new fevers + tachycardia + leukocytosis - Source is not certain - Cefepime on hold due to low concern for possible partial anaphylactic reaction - Blood cultures negative Elevated D-dimer - D-dimer (2700s); may be due to sepsis but given resp sxs, cannot r/o PE - Treat with Eliquis 10mg bid - CTA ordered yesterday, not able to complete due to hx of allergies on dyes reported by patient. This was updated on her allergy list Dizziness, improved - Seems to be related to BPPV - Continue Meclizine prn KEESHA (acute kidney injury) - resolved - Creatinine at the time of admission was 0.97 - Suspect pre-renal due to RVR - Continue PO hydration - Monitor am labs HTN (hypertension): - Stable. - Holding HCTZ, Losartan and Spironolactone for now until optimization of rate control Intertrigo: - New rash under bilateral breasts where environment is humid. Rash is erythematous, pruritic, tender, and with satellite lesions - Likely intertrigo - Will order ketoconazole 2% cream daily for management - Keep area as dry as possible Type 2 diabetes mellitus: - Stable - Hgb A1c from 01/19/24 was 7.3% - Home insulin on hold - Continue SSI adjusted for steroid use - Pharmacy following Cellulitis - resolved Vasovagal episode: - one episode, orthostatic positive - continue PO hydration Continue monitoring HR VTE ppx: Eliquis Diet: DM2 Disposition: MEd/Surg Admission and Anticipated Discharge Date Admission Date: January 21, 2024 Supervising Physician Co-Signing Physician Notes ATTESTATION I also saw the patient and confirmed esposito portions of the history and exam. I agree with the impression and plan in the resident documentation, and as summarized below. Noted being dyspneic this am. did report feeling short of breath In mild resp distress, decreased BS at bases, JVD+ Acute HFpEF with acute hypoxic resp failure -on hctz and spironolactone at home - were held. -one dose lasix 40mgs IV today. -continue supplemental O2 A fib RVR - New diagnosis. HR improving but still high. -Metoprolol 75 mgs bid. -continue eliqus. -Cardio consulted -cardioversion in 3 wks. KEESHA - creatinine improved -hctz, spironolactone and losartan on hold -with lasix dose 5/2- monitor bmp in am. Near syncope - presenting problem - per cardio - vagal and concern of HR drop. Leg cellulitis - treated with abx. improved Drug reaction - rash, fever, wheezing - possibly from daptomycin - has been d/alonso. continue steroids taper. DVT prophylaxisanticoagulated Additional documentation as above Subjective Patient was seen this found in NAD, awake. She was found with mild dyspnea. Denied any chest pain, palpitations or increased SOB. She does feel more cough. Denied any dizziness or lightheadedness Review of Systems Review of Systems: as per HPI Physical Exam Constitutional: WD/WN, vitals as above Respiratory: normal respiratory effort, lungs clear to auscultation Cardiovascular: Rate/Rhythm: + irregularly irregular Heart Sounds: + murmur Extremities: no edema Gastrointestinal (Abdomen): normal bowel sounds, soft, nontender, no hepatosplenomegaly Skin: no rashes, warm and dry ((L) lower extremity with improvement in cellulitis, quarter size lesion w/ ) Results & Data Results & Data Vital Signs (Past 12 Hours) Vital Signs Temp Pulse Pulse Resp BP Pulse Ox O2 Del Method 01/31/24 07:07 94 H 01/31/24 04:19 36.7 C 84 20 133/74 91 Room Air 01/31/24 01:30 100 H 01/30/24 23:27 36.6 C 90 20 146/89 H 93 Room Air 01/30/24 19:50 36.6 C 101 H 22 156/89 H 91 Room Air 01/30/24 19:43 Room Air Resident Activity Tracking Resident Involvement: Resident Care Provided Care Provided: Adult Hospital Medicine (2) Type 2 diabetes mellitus Diabetes mellitus complication status: without complication Diabetes mellitus intermodal truck driver insulin use: with senior living use Qualified Code(s): E11.9 - Type 2 diabetes mellitus without complications; Z79.4 - exterminator helper (current) use of insulin (4) HTN (hypertension) Hypertension type: essential hypertension Qualified Code(s): I10 - Essential (primary) hypertension
[2024-01-31 07:19] LABS: Albumin Globulin Ratio 1.3 (0.9-2); Albumin Level 3.1 gm/dl (3.4-5.0); Bilirubin,Total 0.5 mg/dl (0.2-1.0); Calcium 8.2 mg/dl (8.6-10.3); Creatinine Clr Calc Pharmacy 63.7 ml/min; Est GFR (African American) 63.8 ml/min; Est GFR (Non-African American) 55.1 ml/min; Globulin 2.4 gm/dl (2.5-4.0); Magnesium 2.6 mg/dl (1.7-2.4); Potassium 5.1 mmol/L (3.5-5.1); Total Protein 5.5 gm/dl (6.0-8.3)
[2024-01-31 07:46] LABS: Basophils % (auto) 0.6 %; Eosinophils # (auto) 0.31 K/uL (0.00-0.50); Eosinophils % (auto) 1.8 %; Immature Granulocytes # (auto) 1.15 K/uL (0.01-0.20); Immature Granulocytes % (auto) 6.7 %; Lymphocytes # (auto) 3.92 K/uL (1.20-3.40); Monocytes # (auto) 1.45 K/uL (0.11-0.59); Monocytes % (auto) 8.5 %; Neutrophils # (auto) 10.15 K/uL (1.40-6.50); Neutrophils % (auto) 59.4 %
[2024-01-31] MEDS: FUROSEMIDE 40 MG/4 ML VIAL IV ONE (09:00)
[2024-01-31] MEDS: BENZONATATE 100 MG CAPSULE PO PRN (09:00)
[2024-01-31] MEDS: INSULIN HUMAN NPH SC SCH (09:01)
[2024-01-31] MEDS: predniSONE 10 MG TABLET PO SCH (09:01)
--- NOTE | 2024-01-31 10:01 | Pharmacy Report ---
Pharmacy Glycemic Short Note 2 - Date of Service January 31, 2024 - Glycemic Short BSG Results (Last 24 hours): 01/30/24 01/30/24 01/30/24 12:22 17:16 20:21 Glucose POC Glucose 163 H 179 H 205 H 01/31/24 01/31/24 06:00 08:04 Glucose 111 H POC Glucose 114 H OUTPATIENT ANTIDIABETIC REGIMEN: * Insulin glargine 26 units SC daily HbA1c: 7.3% (01/19/24) ASSESSMENT: 01/31/24: * Blood sugars mildly elevated yesterday, ranging 163-205 mg/dL w/ fasting blood sugar of 114 mg/dL this morning * Received 67 units of insulin (30 units of basal and 37 units of prandial/correctional bolus) * Steroids changed to prednisone today, will change Lantus to NPH to be given with prednisone * Lunchtime blood sugar of 83 mg/dL, will loosen Novolog 01/30/24: * LW is a 73 year old female admitted on 01/18/24 due to dizziness complicated by sepsis secondary to unknown source * Patient has been receiving Solu-medrol 40 mg IV BID (01/23-01/27) and now 40 mg IV daily (01/28-01/29) * Pharmacy consulted for glycemic management today (01/29) * Fasting blood sugar elevated this morning (185 mg/dL), likely related to steroid administration w/ no basal insulin * Discussed with consulting provider, plan is to transition to PO steroids tomorrow * Prednisone taper ordered to start 01/31/24: 40 mg PO daily x 2, 20 mg PO daily x 2, and 10 mg PO daily x 2. PLAN FOR INPATIENT GLYCEMIC CONTROL: * Basal insulin * NPH 15 units SC daily w/ prednisone * Reassess in AM * Bolus insulin * NovoLog per scale ACHS or Q6hrs while NPO * Goal Range: Low 110 mg/dL - High 140 mg/dL * Correction Factor: 20 mg/dL/unit * Nutritional / Prandial insulin per carb ratio of 1 unit per 7 grams CHO consumed
--- NOTE | 2024-01-31 12:59 | Cardiology Progress Note ---
Date of Service January 31, 2024 Assessment & Plan (1) Atrial fibrillation: Plan 1. Atrial fibrillation: This is her first documented episode of atrial fibrillation, and we can be fairly confident she has not had it in quite a few years since we have had loop recorder is in place since 2016. It is always difficult to tell what might have caused atrial fibrillation, it is possible it was caused by her hospitalization but it is a little bit dangerous to assume that since if she has recurrence we could miss it and she would be at risk for stroke (she is asymptomatic during the rhythm). Her device will monitor for it however her loop recorder is very near failure and therefore we would have to replace it if we want to use that to monitor for atrial fibrillation. At least for the time being I would recommend anticoagulation and rate control with cardioversion in about 3 weeks if she remains in atrial fibrillation. I would continue her current dose of Eliquis (now 5 mg twice a day). Her heart rate seems adequately controlled at the moment and I would continue her current metoprolol dose (75 mg twice a day) 2. Syncope: I suspect this has been vagal events in the past, possibly with very little heart rate drop, but she has not had difficulty with that while having loop recorder in place. She did have a minor episode here which would be consistent with that. It does not appear to have been atrial fibrillation although it is conceivable that she had atrial fibrillation and conversion pauses historically (before we have the loop recorder placed, subsequently it would pick these up but she did not have atrial fibrillation either). Admission and Anticipated Discharge Date Admission Date: January 21, 2024 Subjective She is feeling well in general, she is not having symptoms of atrial fibrillation or side effects on her heart rate controlling medications (metoprolol). Physical Exam Physical Exam: Constitutional: Alert, cooperative and in no distress. She is supine in bed. HEENT: Unremarkable Neck: No jugular venous distention, carotid pulses are irregular but otherwise normal and equal bilaterally without bruits. Pulmonary: Clear to auscultation bilaterally. Cardiac: Irregular rhythm with no murmur, gallop or rub. Abdomen: Soft, nontender with normal bowel sounds. Extremities: No edema. Neurologic: No focal findings. Gait was not tested Skin: No rash, ecchymoses or petechiae. Results & Data Vital Signs (Past 12 Hours) Vital Signs Temp Pulse Pulse Resp BP Pulse Ox O2 Del Method 01/31/24 09:55 Room Air 01/31/24 07:47 36.5 C 104 H 16 137/73 92 Room Air 01/31/24 07:07 94 H 01/31/24 04:19 36.7 C 84 20 133/74 91 Room Air 01/31/24 01:30 100 H 01/30/24 23:27 36.6 C 90 20 146/89 H 93 Room Air Laboratory Results Cardiac Enzymes 01/31/24 Range/Units 06:00 AST 15 (13-39) U/L CBC 01/31/24 Range/Units 06:00 WBC 17.08 H (4.8-10.8) K/ul RBC 3.57 L (4.20-5.40) M/uL Hgb 10.7 L (12.0-16.0) g/dl Hct 34.0 L (37.0-47.0) % Plt Count 248 (130-400) K/uL Neut # (Auto) 10.15 H (1.40-6.50) K/uL Lymph # (Auto) 3.92 H (1.20-3.40) K/uL Sumner # (Auto) 1.45 H (0.11-0.59) K/uL Eos # (Auto) 0.31 (0.00-0.50) K/uL Baso # (Auto) 0.10 (0.00-0.20) K/uL Comprehensive Metabolic Panel 01/31/24 Range/Units 06:00 Sodium 140 (136-145) mmol/L Potassium 5.1 (3.5-5.1) mmol/L Chloride 106 (98-107) mmol/L Carbon Dioxide 29 (21-32) mmol/L BUN 47 H (6-23) mg/dl Creatinine 1.00 (0.6-1.2) mg/dl Glucose 111 H (70-99(Fasting)) mg/dl Calcium 8.2 L (8.6-10.3) mg/dl AST 15 (13-39) U/L ALT 41 (7-52) U/L Alkaline Phosphatase 94 (34-104) U/L Total Protein 5.5 L (6.0-8.3) gm/dl Albumin 3.1 L (3.4-5.0) gm/dl Intake and Output 05/01/24 05/02/24 05/02/24 22:59 06:59 14:59 Intake Total 300 / 540 Balance 300 / 540 Intake: Oral 300 / 540 Other: Other Intake Source sips Weight 127 kg Weight Measurement Method Standing Scale Patient Weight 02/01/24 06:59 Weight 127 kg Diagnostic Findings Telemetry: Atrial fibrillation, rate had been running 80-100, this morning it decreased somewhat but remains at around 80 on average. PG Care Time/CCT Total # of Minutes Spent Total Time Spent with Patient: Total time spent is greater than 50% in coordination of care (as documented) at patient's floor/unit and/or counseling patient: Coding Level of Care Code 21934 SUB INP/OBS CARE 2/35MIN Diagnoses Atrial fibrillation I48.91
[2024-01-31] MEDS: APIXABAN 5 MG TABLET PO SCH (20:55)
[2024-02-01 07:03] LABS: Hematocrit (blood only) 37.1 % (37.0-47.0); Hemoglobin 11.4 g/dl (12.0-16.0); Mean Corpuscular Hemoglobin 29.8 pg (25.0-34.0); Mean Corpuscular Hgb Conc 30.7 g/dL (32.0-36.0); Mean Corpuscular Volume 97.1 fL (80.0-100.0); Mean Platelet Volume 9.8 fL (9.4-12.4); Nucleated RBC # (auto) 0.03 K/uL (0.00-0.12); Nucleated RBC % (auto) 0.1 %; Platelet Count 324 K/uL (130-400); RDW Coefficient of Variation 14.6 % (11.5-14.5); RDW Standard Deviation 51.8 fL (36.4-46.3); Red Blood Count 3.82 M/uL (4.20-5.40); White Blood Count 23.97 K/ul (4.8-10.8)
[2024-02-01 07:26] LABS: Basophils # (auto) 0.12 K/uL (0.00-0.20); Basophils % (auto) 0.5 %; Eosinophils # (auto) 0.45 K/uL (0.00-0.50); Eosinophils % (auto) 1.9 %; Immature Granulocytes # (auto) 1.49 K/uL (0.01-0.20); Immature Granulocytes % (auto) 6.2 %; Lymphocytes # (auto) 4.99 K/uL (1.20-3.40); Lymphocytes % (auto) 20.8 %; Monocytes # (auto) 1.77 K/uL (0.11-0.59); Monocytes % (auto) 7.4 %; Neutrophils # (auto) 15.15 K/uL (1.40-6.50); Neutrophils % (auto) 63.2 %; RBC Morphology Unremarkable
[2024-02-01 07:30] LABS: Albumin Globulin Ratio 1.4 (0.9-2); Albumin Level 3.3 gm/dl (3.4-5.0); BUN Creatinine Ratio 42.2 (10-20); Bilirubin,Total 0.5 mg/dl (0.2-1.0); Calcium 8.3 mg/dl (8.6-10.3); Creatinine Clr Calc Pharmacy 53.9 ml/min; Est GFR (African American) 53.3 ml/min; Globulin 2.4 gm/dl (2.5-4.0); Potassium 4.8 mmol/L (3.5-5.1); Total Protein 5.7 gm/dl (6.0-8.3)
--- NOTE | 2024-02-01 08:01 | Hospitalist Progress Note ---
Date of Service February 01, 2024 Assessment & Plan (1) Dizziness: (2) Type 2 diabetes mellitus: (3) Paroxysmal supraventricular tachycardia: (4) HTN (hypertension): (5) Cellulitis: (6) Vasovagal episode: (7) Sepsis: (8) Intertrigo: (9) Viral pneumonia: (10) Shortness of breath: (11) Pulmonary embolism: (12) Atrial fibrillation: (13) KEESHA (acute kidney injury): Plan 73yo female PMH of HTN, DM2, SVT (loop recorder) HTN initially admitted for dizziness found with BPPV found with cellulitis ans sepsis on unknown reason Atrial fibrillation - rapid ventricular response - New finding on telemetry. Asymptomatic. Suspect this may be related to age + current illness - TTE 01/24 EF 55-60% and without wall abnormalities - Metoprolol tartrate 75 BID - Eliquis for anticoagulation - Cardiology consulted, aprec recommendations Acute HFpEF with acute hypoxic resp failure - CXR (01/30): Probable trace pleural effusions with basilar atelectasis. Cardiomegaly with pulmonary vascular congestion. - IV lasix x 2 - Continue to monitor Hypoxia - improving End respiratory wheezing - resolved CXR (01/30): Probable trace pleural effusions with basilar atelectasis. - Atelectasia vs Acute CHF vs undiagnosed LAZARO or COPD - Continue albuterol prn + Breo Ellipta daily + Duonebs prn - O2 supplementation prn Rash - stable - Possibly due Drug reaction / Dress syndrome? - Steroids amairani - Monitor Sepsis - resolved - Patient with new fevers + tachycardia + leukocytosis - Source is not certain - Cefepime on hold due to low concern for possible partial anaphylactic reaction - Blood cultures negative Dizziness, improved - Seems to be related to BPPV - Continue Meclizine prn KEESHA (acute kidney injury) - resolved - Creatinine at the time of admission was 0.97 - Suspect pre-renal due to RVR - Continue PO hydration - Monitor am labs HTN (hypertension): - Stable. - Holding HCTZ, Losartan and Spironolactone for now until optimization of rate control Intertrigo: - New rash under bilateral breasts where environment is humid. Rash is erythematous, pruritic, tender, and with satellite lesions - Likely intertrigo - Will order ketoconazole 2% cream daily - Keep area as dry as possible Type 2 diabetes mellitus: - Hgb A1c from 01/19/24 was 7.3% - Home insulin on hold - Continue SSI adjusted for steroid use - Pharmacy following Cellulitis - resolved Vasovagal episode: - one episode, orthostatic positive - continue PO hydration Continue monitoring HR VTE ppx: Eliquis Diet: DM2 Disposition: MEd/Surg Admission and Anticipated Discharge Date Admission Date: January 21, 2024 Subjective Patient was seen this found in NAD, awake. Her dyspnea had improved after IV Lasix. Refers her SOB had slightly improved as well. Denied any dizziness, worsening SOB, palpitations , lightheadedness or any other symptoms. She denied any itchiness Review of Systems Review of Systems: All systems reviewed & are unremarkable except as noted in HPI & below Physical Exam Physical Exam: General: AAOx3, afebrile, NAD CV: RRR no r/m/g Pulm: end expiratory wheezing, no accessory muscle use, no respiratory distress GI: soft, nontender, nondistended Skin: erythematous rash in bilateral upper extremities and facial flushing Ext: (L) lower extremity with wound covered on clean bandages, no signs of infections, no edema Results & Data Results & Data Vital Signs (Past 12 Hours) Vital Signs Temp Pulse Pulse Resp BP Pulse Ox O2 Del Method 02/01/24 07:33 36.4 C L 95 H 16 139/71 90 Room Air 02/01/24 04:58 36.4 C L 79 20 134/79 94 Nasal Cannula 02/01/24 00:00 101 H 01/31/24 23:35 36.4 C L 96 H 20 152/73 H 92 Nasal Cannula 01/31/24 21:39 Room Air O2 Flow Rate 02/01/24 07:33 02/01/24 04:58 2 02/01/24 00:00 01/31/24 23:35 2 01/31/24 21:39 Resident Activity Tracking Resident Involvement: Resident Care Provided Care Provided: Adult Hospital Medicine (2) Type 2 diabetes mellitus Diabetes mellitus complication status: without complication Diabetes mellitus shelter insulin use: with intermediate manager use Qualified Code(s): E11.9 - Type 2 diabetes mellitus without complications; Z79.4 - long-term (current) use of insulin (4) HTN (hypertension) Hypertension type: essential hypertension Qualified Code(s): I10 - Essential (primary) hypertension
--- NOTE | 2024-02-01 08:36 | Pharmacy Report ---
Pharmacy Glycemic Short Note 2 - Date of Service February 01, 2024 - Glycemic Short BSG Results (Last 24 hours): 01/31/24 01/31/24 01/31/24 12:10 17:04 20:34 Glucose POC Glucose 83 137 H 217 H 02/01/24 02/01/24 06:17 08:23 Glucose 126 H POC Glucose 128 H OUTPATIENT ANTIDIABETIC REGIMEN: * Insulin glargine 26 units SC daily HbA1c: 7.3% (01/19/24) ASSESSMENT: 02/01/24: * Blood sugars well-controlled yesterday except for elevation at HS * Will tighten carb ratio today, but will continue with other orders for today * Prednisone will be decreased to 20 mg tomorrow morning, so will reassess basal at that time 01/31/24: * Blood sugars mildly elevated yesterday, ranging 163-205 mg/dL w/ fasting blood sugar of 114 mg/dL this morning * Received 67 units of insulin (30 units of basal and 37 units of prandial/correctional bolus) * Steroids changed to prednisone today, will change Lantus to NPH to be given with prednisone * Lunchtime blood sugar of 83 mg/dL, will loosen Novolog 01/30/24: * LW is a 73 year old female admitted on 01/18/24 due to dizziness complicated by sepsis secondary to unknown source * Patient has been receiving Solu-medrol 40 mg IV BID (01/23-01/27) and now 40 mg IV daily (01/28-01/29) * Pharmacy consulted for glycemic management today (01/29) * Fasting blood sugar elevated this morning (185 mg/dL), likely related to steroid administration w/ no basal insulin * Discussed with consulting provider, plan is to transition to PO steroids tomorrow * Prednisone taper ordered to start 01/31/24: 40 mg PO daily x 2, 20 mg PO daily x 2, and 10 mg PO daily x 2. PLAN FOR INPATIENT GLYCEMIC CONTROL: * Basal insulin * NPH 15 units SC daily w/ prednisone 40 mg PO daily * Reassess in AM w/ steroid taper * Bolus insulin * NovoLog per scale ACHS or Q6hrs while NPO * Goal Range: Low 110 mg/dL - High 140 mg/dL * Correction Factor: 20 mg/dL/unit * Nutritional / Prandial insulin per carb ratio of 1 unit per 6 grams CHO consumed
[2024-02-01] MEDS: MECLIZINE 12.5 MG TAB PO PRN (09:30)
[2024-02-01] MEDS: FUROSEMIDE 40 MG/4 ML VIAL IV ONE (09:30)
[2024-02-01] MEDS: INSULIN HUMAN NPH SC SCH (09:35)
--- NOTE | 2024-02-01 14:54 | Discharge Summary ---
Date of Service February 01, 2024 Admission HPI Per Admitting Provider Patient is a 73-year-old female with past medical history of type 2 diabetes, hypertension, asthma, paroxysmal supraventricular tachycardia, and morbid obesity who presents to the hospital with dizziness that started this morning. Patient woke up around 7 AM, went to eat something, then around 9 AM started to feel dizzy as well as nauseous. She did have some dry heaving but no vomiting. States that she felt like the room was spinning and that when she closes her eyes it continued. The dizziness got worse with movement. She denies any falls. She denies any abdominal pain. Denies any chest pain, shortness of b reath, recent fever. Does state that she has been having some allergy symptoms recently with some cough but no recent illness. States that she has never had this before. Denies any ear ringing Admission Exam Per Admitting Provider .Constitutional: well-appearing, no acute distress HEENT: NCAT, no conjunctival injection CV: regular rhythm, no murmur appreciated, extremities well-perfused, no LE edema Resp: CTABL, no wheezes/rales/rhonchi appreciated, no increased work of breathing GI: soft, nondistended, nontender, BS normoactive MSK: no gross deformities appreciated Skin: warm, dry, no rash appreciated Neuro: alert, oriented, no focal neurologic deficit appreciated Principal Diagnosis Atrial fibrillation Acute HFpEF Dizziness Discharge Exam Constitutional: WD/WN, vitals as above Respiratory: normal respiratory effort, lungs clear to auscultation Cardiovascular: Rate/Rhythm: + irregularly irregular Heart Sounds: + murmur Extremities: no edema Gastrointestinal (Abdomen): normal bowel sounds, soft, nontender, no hepatosplenomegaly Skin: no rashes, warm and dry ((L) lower extremity wounds cover in clear bandages Discharge Data Allergies Allergy/AdvReac Type Severity Reaction Status Date / Time erythromycin base Allergy Severe ANAPHYLAXIS Verified 01/18/24 19:22 metformin Allergy Severe GENERALIZED Verified 01/18/24 19:22 RASH AND ITCHING Penicillins Allergy Severe ANAPHYLAXIS, Verified 01/18/24 19:22 RASH cefaclor Allergy Intermediate RASH Verified 01/18/24 19:22 tetanus toxoid, adsorbed Allergy Intermediate REDNESS, Verified 01/18/24 19:22 SWELLING AT INSERTION SITE Quinolones Allergy Mild RASH Verified 01/18/24 19:22 clindamycin Allergy Unknown Unknown Verified 01/18/24 19:22 Influenza Virus Vaccines Allergy Unknown Unknown Verified 01/18/24 19:22 Iodinated Contrast Media Allergy Unknown Anaphylaxis Verified 01/28/24 18:57 Sulfa (Sulfonamide Allergy Unknown Unknown Verified 01/18/24 19:22 Antibiotics) tetracycline Allergy Unknown Unknown Verified 01/18/24 19:22 Tetracyclines Allergy Unknown MINOCYCLINE Verified 01/18/24 19:22 /DOXY prednisone AdvReac Intermediate PSYCHOSIS Verified 01/18/24 19:22 vancomycin AdvReac Intermediate RED MAN Verified 01/18/24 19:22 SYNDROME - RASH, WBC DECREASED Consultations 01/18/24 21:26 ED Decision to Admit Stat 01/27/24 16:40 Consult [facility] trolley operator Routine 01/29/24 09:04 Consult Cardiology Routine Ordered Studies 01/18/24 18:13 CT head/brain wo con Stat 01/19/24 10:07 US venous doppler LE LT Routine 01/23/24 01:47 CT chest diagnostic wo con Urgent 01/23/24 11:06 US RUQ [US liver] Routine Hospital Course (1) Dizziness: (2) Type 2 diabetes mellitus: (3) Paroxysmal supraventricular tachycardia: (4) HTN (hypertension): (5) Cellulitis: (6) Vasovagal episode: (7) Sepsis: (8) Intertrigo: (9) Viral pneumonia: (10) Shortness of breath: (11) Pulmonary embolism: (12) Atrial fibrillation: (13) KEESHA (acute kidney injury): Plan 73yo female PMH of HTN, DM2, SVT (loop recorder) HTN initially admitted for dizziness found with BPPV found with cellulitis and. sepsis on unknown reason Atrial fibrillation - rapid ventricular response - New finding during this admission. - TTE 01/24 EF 55-60% and without wall abnormalities - Continue Metoprolol tartrate - dose increased to 75 BID - Added Eliquis 5 mg BID for anticoagulation Acute HFpEF with acute hypoxic resp failure - CXR (01/30): Probable trace pleural effusions with basilar atelectasis. Cardiomegaly with pulmonary vascular congestion. - IV lasix x twice - Continue to monitor as outpatient for concern of fluid overload and needing spot dose of lasix. Rash - stable - Likely Drug reaction - Steroids amairani- Continue Prednisone 20 mg PO daily x 2, and 10 mg PO daily x 2. Dizziness, improved - Seems to be related to BPPV - Continue Meclizine prn KEESHA (acute kidney injury) - resolved - Creatinine at the time of admission was 0.97 - Suspect pre-renal due to RVR - Continue PO hydration - Recommended BMP tomorrow am HTN (hypertension): - Stable. - Continue HCTZ - Hold Losartan and Spironolactone due hyperkalemia - consider other antihypertensive agents for BP control. Intertrigo: - New rash under bilateral breasts where environment is humid. Rash is erythematous, pruritic, tender, and with satellite lesions - Likely intertrigo - continue ketoconazole 2% cream daily - Keep area as dry as possible Type 2 diabetes mellitus: - Hgb A1c from 01/19/24 was 7.3% - Home insulin on hold - Patient currently on steroid taper readjust as needed: * Basal insulin * NPH 15 units SC daily w/ prednisone 40 mg PO daily * Reassess in AM w/ steroid taper * Bolus insulin * NovoLog per scale ACHS or Q6hrs while NPO * Goal Range: Low 110 mg/dL - High 140 mg/dL * Correction Factor: 20 mg/dL/unit * Nutritional / Prandial insulin per carb ratio of 1 unit per 6 grams CHO consumed Wound L lower extremity -Continue wound care Cellulitis - resolved Total Time Total Time Spent Total Time Spent (In Minutes): <30 Discharge Plan Discharge Items Patient Disposition: Home - Self-Care Reason For Visit: DIZZINESS Discharge Diagnosis: BPPV, Cellulitis Activity: Per Instructions section Non-emergency contact: Primary Care Provider Call non-emergency contact if: your symptoms worsen and your temperature is above 101 Follow-up/Referrals: Raciel Garsia MD [Primary Care Provider] - Diet: Carb Consistent or DM2 Addtl Attending Provider Instructions: 73yo female PMH of HTN, DM2, SVT (loop recorder) HTN initially admitted for dizziness found with BPPV found with cellulitis and. sepsis on unknown reason Atrial fibrillation - rapid ventricular response - New finding during this admission. Asymptomatic. Suspect this may be related to age + current illness - TTE 01/24 EF 55-60% and without wall abnormalities - Continue Metoprolol tartrate 75 BID - Continue Eliquis 5 mg BID for anticoagulation - Cardiology consulted, aprec recommendations Acute HFpEF with acute hypoxic resp failure - CXR (01/30): Probable trace pleural effusions with basilar atelectasis. Cardiomegaly with pulmonary vascular congestion. - IV lasix x twice - Continue to monitor Hypoxia - improving End respiratory wheezing - resolved CXR (01/30): Probable trace pleural effusions with basilar atelectasis. - Atelectasia vs Acute CHF vs undiagnosed LAZARO/OHS or COPD - Continue albuterol prn + Breo Ellipta daily + Duonebs prn - O2 supplementation prn Rash - stable - Possibly due Drug reaction / Dress syndrome? - Steroids amairani- Continue Prednisone 20 mg PO daily x 2, and 10 mg PO daily x 2. - Monitor Sepsis - resolved Dizziness, improved - Seems to be related to BPPV - Continue Meclizine prn KEESHA (acute kidney injury) - resolved - Creatinine at the time of admission was 0.97 - Suspect pre-renal due to RVR - Continue PO hydration - Recommended BMP tomorrow am HTN (hypertension): - Stable. - Continue HCTZ - Hold Losartan and Spironolactone due KEESHA Intertrigo: - New rash under bilateral breasts where environment is humid. Rash is erythematous, pruritic, tender, and with satellite lesions - Likely intertrigo - Will order ketoconazole 2% cream daily - Keep area as dry as possible Type 2 diabetes mellitus: - Hgb A1c from 01/19/24 was 7.3% - Home insulin on hold - Patient currently on steroid taper readjust as needed: * Basal insulin * NPH 15 units SC daily w/ prednisone 40 mg PO daily * Reassess in AM w/ steroid taper * Bolus insulin * NovoLog per scale ACHS or Q6hrs while NPO * Goal Range: Low 110 mg/dL - High 140 mg/dL * Correction Factor: 20 mg/dL/unit * Nutritional / Prandial insulin per carb ratio of 1 unit per 6 grams CHO consumed Wound L lower extremity -Continue wound care Cellulitis - resolved Vasovagal episode o resolved Pending Studies at Discharge: No Stand-Alone Forms: My [employer], Smoking Cessation Medications and DC Order Prescriptions: New meclizine 12.5 mg Tablet 12.5 mg PO Q24H PRN (Reason: dizziness) Qty: 30 0RF Continued loratadine 10 mg capsule 10 mg PO DAILY acetaminophen [Tylenol Extra Strength] 500 mg tablet 1,000 mg PO Q6H PRN (Reason: Pain) (DME) lancets [OneTouch Delica Plus Lancet] 33 gauge misc See Rx Instructions .Route Qty: 100 2RF Rx Instructions: Check blood sugar once daily and prn multivitamin [Daily Multi-Vitamin] Tablet 1 tab PO DAILY (DME) OneTouch Verio test strips Strip See Rx Instructions .Route Qty: 100 5RF Rx Instructions: use to test blood sugar every other day insulin glargine [Lantus Solostar U-100 Insulin] 100 unit/mL (3 mL) insulin pen 26 unit subcut DAILY Qty: 15 5RF (DME) pen needle, diabetic [Comfort EZ Pen [place]] 31 gauge x 1/4" needle See Rx Instructions .Route Qty: 100 3RF Rx Instructions: Inject once daily with Lantus hydrochlorothiazide 25 mg tablet 25 mg PO DAILY Qty: 90 3RF Discontinued olmesartan 40 mg tablet 40 mg PO DAILY Qty: 90 3RF spironolactone 25 mg tablet 25 mg PO DAILY Qty: 90 3RF Discharge Orders: Discharge Order (Routine); Ordered 02/01/24 Ordered By: Lucian Rose/Other Patient Handouts: Managing Type 2 Diabetes Admission Data Admit Date/Time: 01/21/24 14:20 Attending Provider: Adelia Deluna Admit Provider: Shane Madrigal Primary Care Provider: Raciel Garsia Other Providers: [place]; [facility]; [facility]; Jaxon Carvajal Other Interventions: Discharge Summary Assessment (RN) Last Done: 02/01/24 15:31 Supervising Physician Co-Signing Physician Notes ATTESTATION I also saw the patient and confirmed esposito portions of the history and exam. I agree with the impression and plan in the resident documentation, and as summarized below. Breathing improved with dose of lasix yesterday. Another dose given on day of discharge today. Acute HFpEF with acute hypoxic resp failure -on hctz and spironolactone at home - were held. -s/p 2 lasix doses. consider further spots doses as needed in outpatient setting. -continue supplemental O2 prn A fib RVR - New diagnosis. HR improved -Metoprolol 75 mgs bid. -continue eliqus. -Cardio consulted -will need set up for cardioversion in 3 wks. KEESHA - creatinine improved -hctz, spironolactone and losartan on hold -resumed lasix on discharge. -due to hyperkalemia - consider adding other antihypertensives for BP for control Near syncope - presenting problem - per cardio - vagal and concern of HR drop. Leg cellulitis - treated with abx. improved Drug reaction - rash, fever, wheezing - possibly from daptomycin - has been d/alonso. continue steroids taper.
== END 2024-02-01 16:39 | DRG 602 ==
LOC: ED 13:49 → 3N 13:49 → SUATTDRO 22:34 → 3N 23:02 → SUATTDRO 01-21 14:20 → 2N 01-22 23:13